=== PATIENT | male | born 1950 | race Caucasian/White ===

== ENCOUNTER 2021-02-11 05:43 | Outpatient (CLI) | payer OTHER ==
[~2021-02-11] VITALS: Ht 182.9 cm; Wt 79.5 kg
[2021-02-11] MEDS ORDERED: GARL1TAB2 PO (15:03)
[2021-02-11] MEDS ORDERED: CHOL20002 PO (15:03)
[2021-02-11] MEDS ORDERED: FINA1TAB16 PO (15:03)
[2021-02-11] MEDS ORDERED: FAMO20TA3 PO (15:03)
[2021-02-11] MEDS ORDERED: ASCO125T PO (15:03)
[2021-02-11] MEDS ORDERED: UBID100C17 PO (15:03)
[2021-02-11] MEDS ORDERED: QUET300T19 PO (15:03)
[2021-02-11] MEDS ORDERED: CARB1TAB44 PO (15:03)
[2021-02-11] MEDS ORDERED: CALC600T91 PO (15:03)
[2021-02-11] MEDS ORDERED: BENZ0.5T42 PO (15:03)
[2021-02-11] MEDS ORDERED: MULT-158 PO (15:03)
[2021-02-11] MEDS ORDERED: KRIL1CAP29 PO (15:03)
== END 2021-02-11 15:27 | disposition home or self-care (01) ==
LOC: PREOP 05:43
PROVIDERS: ATTEND Radiology Radiation Oncology
DX: Z01.818 Encounter for other preprocedural examination (principal)

== ENCOUNTER 2021-02-25 10:32 | Day surgery (SDC) | payer OTHER ==
[~2021-02-25] VITALS: Ht 182 cm; Wt 79.5 kg
[2021-02-25] VITALS (9 sets, daily range): BP systolic 98–141; BP diastolic 59–89
[~2021-02-25 10:32] MED LIST: ASCO125T PO; BENZ0.5T42 PO; CALC600T91 PO; CARB1TAB44 PO; CHOL20002 PO; FAMO20TA3 PO; FINA1TAB16 PO; GARL1TAB2 PO; KRIL1CAP29 PO; MULT-158 PO; QUET300T19 PO; UBID100C17 PO
[2021-02-25] MEDS ORDERED: LACTATED RINGERS 1,000 ML IV PRN (11:00)
--- NOTE | 2021-02-25 11:08 | Progress Note-Pre Operative ---
Pre-Operative Progress Note H&P Reviewed The H&P was reviewed, patient examined and no changes noted. Date Seen by Provider: Feb 25, 2021 Time Seen by Provider: 11:07 Date H&P Reviewed: Feb 25, 2021 Time H&P Reviewed: 11:07 Pre-Operative Diagnosis: Prostate cancer cT1c, PSA 5.89 (on Avodart), [place] 7 (4+3) ZACKARY MAYBERRY MD Feb 25, 2021 11:08
[2021-02-25] MEDS ORDERED: CIPR-226 PO (11:11)
[2021-02-25] MEDS ORDERED: ACET1TAB43 PO (11:11)
--- NOTE | 2021-02-25 11:13 | Discharge Inst-Simple/Standard ---
Discharge Inst-Standard Reconcile Patient Problems Problems Reviewed?: Yes Discharge Medications New, Converted or Re-Newed RX: RX Given to Pt/Family Patient Instructions/Follow Up Plan of Care/Instructions/FU: 1)one month post implant scan at [facility] cancer center 03/24/21 at 9:30 a.m. 2)one month follow up with Dr. Devine 03/30/21 at 2:00 p.m. Activity as Tolerated: Yes Discharge Diet: No Restrictions Other Inst to Patient Please instruct patient on wilder catheter care and wilder removal for Tuesday03/02/21 in the morning. ZACKARY MAYBERRY MD Feb 25, 2021 11:13
[2021-02-25] MEDS ORDERED: BACITRACIN OINTMENT 28 GM TUBE ONE (12:22)
[2021-02-25] MEDS ORDERED: fentaNYL INJ 100 MCG/2 ML AMP ONE ×2 (12:27→13:53)
[2021-02-25] MEDS ORDERED: fentaNYL INJ 250 MCG/5 ML AMP ONE (12:27)
[2021-02-25] MEDS ORDERED: MIDAZOLAM 2 MG/2 ML (VERSED) VIAL ONE (12:27)
--- NOTE | 2021-02-25 13:48 | Anesthesia-General Post-Op ---
General Patient Condition Mental Status/LOC: Same as Preop Cardiovascular: Satisfactory Nausea/Vomiting: Absent Respiratory: Satisfactory Pain: Controlled Complications: Absent Post Op Complications Complications None Follow Up Care/Instructions Patient Instructions None needed. Anesthesia/Patient Condition Patient Condition Patient is doing well, no complaints, stable vital signs, no apparent adverse anesthesia problems. No complications reported per nursing. TABATHA FORBES CRNA Feb 25, 2021 13:48
[2021-02-25] MEDS ORDERED: ONDANSETRON 4 MG/2 ML (SDV) Z0FRAN IVP PRN (14:00)
[2021-02-25] MEDS ORDERED: MEPERIDINE (DEMEROL) INJ 50 MG/ML IVP ONE (14:00)
[2021-02-25] MEDS ORDERED: morphine INJ 10 MG/ML 1ML (SYR OR VIAL) IVP ONE (14:00)
--- NOTE | 2021-02-25 14:04 | Progress Note-Post Operative ---
Post-Operative Progess Note Surgeon (s)/Review Analyst (s) Surgeon ZACKARY MAYBERRY MD Review Analyst: Lizz WHITLEY MD Pre-Operative Diagnosis Prostate cancer cT1c, PSA 5.89 (on Avodart), [place] 7 (4+3) Post-Operative Diagnosis Same as pre op Procedure & Operative Findings Date of Procedure 02/25/21 Procedure Performed/Findings (1) 100% Cesium 131 permanent prostate seed implant (2) Injection of biodegradable hydrogel prostate-rectal spacer utilizing the SpaceOAR system (3) Cystogram prostate volume 14 cc Anesthesia Type General Estimated Blood Loss Estimated blood loss (mL): Minimal Specimens/Packing Specimens Removed None Packing: N/A ZACKARY MAYBERRY MD Feb 25, 2021 14:04
--- NOTE | 2021-02-25 14:42 | Diagnostic Imaging Report ---
Indication: Fluoroscopy for brachytherapy. Fluoroscopy was provided for Dr. Garcia for prostate brachytherapy. 13 seconds of fluoroscopic time was utilized. A single image was obtained demonstrating multiple radiation seed implants within the prostate gland. IMPRESSION: Fluoroscopy for brachytherapy. Dictated by: Dictated on workstation # [id number]
--- OUTSIDE RECORDS SUMMARY | 2021-02-26 00:23 | XMS REPORT | Encounter Summary ---
[facility] Address Unknown Phone Unavailable Care Team Providers Care Dry Cleaner Hand Name Role Phone JER GARCIA PCP Unavailable Insurance Providers: All historical and current Section Date Range: From patient's date of to the date document was create d. This section includes the names of all active insurance providers for the danis friend Insurance Provider Type of Coverage Plan Name Start of Policy Co verage End of Policy Coverage Group Number Member ID Insurance Provider's Telephone N umber Policy Baeza's Name Patient's Relationship to Policy Baeza AETNA [facility] (WNR) MEDICARE ADVANTAGE [facility](R) Jul 18, 2019 00 [id number] MAYI FARRELL PATIENT [facility] (WNR) MEDICARE ADVANTAGE [facility] (WNR) Jul 18, 2012 [id number] MAYI FARRELL PATIENT [facility] (WNR) MEDICARE ADVANTAGE [facility] (WNR) Jul 18, 2012 [id number] [facility] (WNR) MEDICARE ADVANTAGE [facility] (WNR) Jul 18, 2012 [id number] MAYI FARRELL PATIENT MEDICARE (WNR) MEDICARE (M) PART B Jul 18, 2009 PART B [id number] MAYI FARRELL PATIENT MEDICARE (WNR) MEDICARE (M) PART B Jul 18, 2009 PART B [id number] [phone] FARRLEL,GENE PATIENT MEDICARE (WNR) MEDICARE (M) PART A Oct 16, 2008 PART A [id number] MAYI FARRELL PATIENT MEDICARE (WNR) MEDICARE (M) PART A Oct 16, 2008 PART A [id number] [phone] MAYI FARRELL PATIENT MEDICARE PART D (WNR) MEDICARE (M) PART D Jul 18, 2015 PART D [id number] JMGENE PATIENT MEDICARE PART D (WNR) MEDICARE (M) PART D Jul 18, 2015 PART D [id number] JMGENE PATIENT MEDICARE PART D (WNR) MEDICARE (M) PART D Jul 18, 2012 PART D [id number] MAYI FARRELL PATIENT MEDICARE PART D (WNR) MEDICARE (M) PART D Jul 18, 2012 PART D [id number] MAYI FARRELL PATIENT Selected Encounter This section includes the information on record at [place] for the Encounter. Date/Time Encounter Type Encounter Description Reason Provider Source Jun 16, 2020 10:30 AM Outpatient Encounter TELEPHONE VIKA MONROY Encounter Template Text not used by [place] Assessments - Encounter Diagnoses No Data Provided for This Section Plan of Treatment: Future Appointments (+ 6 months) and Future Tests (+/- 45 day s) The Plan of Treatment section includes future care activities for the patient fr om all [place] treatment facilities. This section includes future appointments and fu ture orders which are active, pending or scheduled. Future Appointments This section includes appointments that were scheduled t o occur 6 months from the date of the Encounter, up to a maximum of 20 appointme nts. The data comes from all [place] treatment facilities. Appointment Date/Time Appointment Type Appointment Facili ty Name Aug 21, 2020 09:00 AM AMBULATORY - NONE [facility] Aug 21, 2020 04:00 PM AMBULATORY - MEDICINE [facility] Aug 28, 2020 09:00 AM AMBULATORY - MEDICINE [facility] Oct 01, 2020 12:00 PM AMBULATORY - MEDICINE [facility] Oct 02, 2020 02:00 PM AMBULATORY - PSYCHIATRY [facility] Oct 23, 2020 02:00 PM AMBULATORY - PSYCHIATRY [facility] Oct 30, 2020 08:00 AM AMBULATORY - NONE [facility] November 20, 2020 02:00 PM AMBULATORY - PSYCHIATRY [facility] November 27, 2020 02:25 PM AMBULATORY - NONE [facility] Surgical Procedures: All associated to the encounter No Data Provided for This Section Lab Results: +/- 30 days of the encounter No Data Provided for This Section Vital Signs: All taken on the encounter date This section contains inpatient and outpatient Vital Signs collected on the date of the Encounter. Date/Time Temperature Pulse Blood Pressure Respiratory Rate SP02 Pa in Height Weight Body Mass Index Source Jun 16, 2020 09:17 AM 0 [facility] Immunizations: All administered on the encounter date No Data Provided for This Section Social History: Smoking Status (Most current) and Tobacco Use (All prior to enco unter date) This section includes the most current, and the historical, smoking and tobacco- related health factors from the [place] facility where the Encounter took place. Current Smoking Status This section includes the most current smoking, or tobacco -related health factor, from the [place] facility where the Encounter took place. Date/Time Current Smoking Status Comment Facility Oct 14, 2018 01:47 PM MS-TOBACCO QUIT 15 YRS OR MORE [facility] Tobacco Use History This section includes a history of the smoking, or tobacco -related health factors, that were collected on or before the date of the Encoun ter. The data comes from the [place] facility where the Encounter took place. Date/Time Smoking Status/Tobacco Use Comment Facil ity Oct 14, 2018 01:47 PM MS-TOBACCO FORMER USER [facility] CLI [place] Oct 14, 2018 01:47 PM MS-TOBACCO QUIT 15 YRS OR MORE [facility] Advance Directives: All historical and current No Data Provided for This Section Radiology Reports: +/- 30 days of the encounter No Data Provided for This Section Pathology Reports: +/- 30 days of the encounter No Data Provided for This Section Encounter Notes: All associated encounter notes This section contains the clinical notes associated to the Encounter. Date/Time Encounter Note(s) Provider Source Jun 16, 2020 10:48 AM ADMINISTRATIVE NOTE: LOCAL TITLE: ADMINISTRATIVE NOTE STANDARD TITLE: ADMINISTRATIVE NOTE DATE OF NOTE: JUN 16, 2020@10:48 ENTRY DATE: JUN 16, 2020@10:48:53 AUTHOR: VIKA BETANCOURT EXP COSIGNER: URGENCY: STATUS: COMPLETED ADMINISTRATIVE NOTE Has ADDENDA PLease schedule for follow up with Dr Loera or other provider at the end of Aug or september. /mauri/ VIKA BETANCOURT PA-C PHYSICIAN TURF FARM WORKER, MENTAL HEALTH Signed: 06/16/2020 10:49 Receipt Acknowledged By: 06/16/2020 14:40 /mauri/ CATRINA TORIBIO [facility] 06/17/2020 08:06 /es/ THERESA LUJAN MENTAL HEALTH 06/16/2020 ADDENDUM STATUS: COMPLETED sched 09/15 @ 10 /mauri/ CATRINA THOMAS [facility] Signed: 06/16/2020 14:43 07/23/2020 ADDENDUM STATUS: COMPLETED called back states he does not want to change provider only wants to see tremayne requests call from tremayne when available /karey THOMAS [facility] Signed: 07/23/2020 12:43 Receipt Acknowledged By: * AWAITING SIGNATURE * CAMILLA SOLOMON 07/23/2020 13:55 /mauri/ VIKA CANO PA-C PHYSICIAN TURF FARM WORKER, MENTAL HEALTH 07/23/2020 ADDENDUM STATUS: COMPLETED Called . First he tells me that lorazepam has made his tremors go away. He is happy about this. I let him know that I wanted him to see the doctor because of our differene of opinion on whether he should be using quetiapine at night, he has parkinsonism. Let him know I wanted an opinion from someone with more experience since I believe this is a bad choice of medications for him and he was very resistant about trying anything else for sleep. He agrees to keep the appointment with Dr Pearl on 09/15/20 at 10AM. /mauri/ VIKA BETANCOURT PA-C PHYSICIAN [employer]UR[employer] FARM WORKER, MENTAL HEALTH Signed: 07/23/2020 13:54 Receipt Acknowledged By: * AWAITING SIGNATURE * MARIA LUISA LOERA KATHRYN D [place] [facility] Jun 16, 2020 09:08 AM MENTAL HEALTH NURSING NOTE: LOCAL TITLE: MENTAL HEALTH NURSE INTAKE STANDARD TITLE: MENTAL HEALTH NURSING NOTE DATE OF NOTE: JUN 16, 2020@09:08 ENTRY DATE: JUN 16, 2020@09:08:26 AUTHOR: CAMILLA SOLOMON COSIGNER: URGENCY: STATUS: COMPLETED SUBJECTIVE: Pre telephone appt call for MH Intake. [place] is alert, oriented and pleasant. Denies HI/SI. Rates his depression a 7 otherwise is doing good. The 's phone number and address: [phone] Richa Jimenez RYAN The 's present location:home The [place]'s emergency contact name and phone number: Saadia Farrell () [phone] [place] has verbally consented to telehealth; alternatives for obtaining care through in-person visit and right of refusal at any time have been explained. [place] agreed to services today. Coronavirus Disease 2019 (COVID-19) Screen The patient reports no COVID-19 diagnosis. The patient reports not waiting for the results of a COVID-19 lab test. The patient reports no fever. The patient reports no new or worsening cough or shortness of breath. The patient reports no cold or flu-like symptoms. The patient reports no new onset of diarrhea, nausea or vomiting. The patient reports no new onset of headache, loss of taste or loss of smell. The patient reports no exposure to someone with COVID-19 within the past 2 weeks. Result: Screen is negative. Educated the regarding good handwashing, social distancing and avoid going out unless absolutely necessary to avoid possibilty of exposure to the Virus. voiced understanding and is agreeable with the plan. BP: 128/75 (08/29/2019 11:33) Pain: 0 (05/19/2020 14:51) Height: 71 in [180.3 cm] (08/29/2019 11:33) Weight: 174.7 lb [79.4 kg] (08/29/2019 11:33) Pulse: 76 (08/29/2019 11:33) Respiration: 20 (08/29/2019 11:33) Temperature: 97.8 F [36.6 C] (08/29/2019 11:33) ALLERGIES:ERYTHROMYCIN, SIMVASTATIN, FINASTERIDE, GABAPENTIN, VENLAFAXINE DEPRESSION SCREEN: (x)Positive ()Negative rates a 7 on a scale of 0-10 If positive, ()New/Untreated Depression SUICIDAL: (x)No ()Yes If Yes, does patient have a plan? ()Yes ()No PAIN: [x]No []Yes []Chronic or []Acute; Present Pain Level: 0 (05/19/2020 14:51) Comfort Level Scale (0-10):0 TOBACCO: (x)No ()Yes-Counseled for cessation. Has the patient traveled outside the [place] within the past 30 days? No If yes, where has the patient traveled? Organ Donor (Nurse): Patient states he/she is not currently registered with a Regional Organ Recovery Agency. Patient declines to be an organ donor. Alcohol Use Screen (AUDIT-C): Alcohol Screen: SCREEN FOR ALCOHOL (AUDIT-C) An alcohol screening test (AUDIT-C) was negative (score=0). 1. How often did you have a drink containing alcohol in the past year? Never 2. How many drinks containing alcohol did you have on a typical day when you were drinking in the past year? Response not required due to responses to other questions. 3. How often did you have six or more drinks on one occasion in the past year? Response not required due to responses to other questions. Influenza Immunization: The patient has received the seasonal influenza vaccine for the current season at another location. Date: April 01, 2020 Location: [facility] Daily Aspirin (Nurse): Patient does not take daily aspirin. Pain Evaluation (Nurse): PAIN EVALUATION: Clinic Location: Mental Health Patient reports no pain present today. Pain Score: 0 /es/ CAMILLA SOLOMON RN PRIMARY CARE REGISTERED NURSE-RICHA Signed: 06/16/2020 09:21 CAMILLA SOLOMON [facility]
--- OUTSIDE RECORDS SUMMARY | 2021-02-26 00:23 | XMS REPORT | Encounter Summary ---
Author Author Department [facility] MAYI ruth Organization Department of [facility] Address Unknown Phone Unavailable Care Team Providers Care Area Sales Manager Name Role Phone JER GARCIA PCP Unavailable [...] Name Patient's Relationship to Policy Baeza AETNA [facility] (WNR) MEDICARE ADVANTAGE [facility](WNR) Jul 18, 2019 00 0003[place] [id number] MAYI ONEAL PATIENT [facility] (WNR) MEDICARE ADVANTAGE [facility] (WNR) Jul 18, 2012 [id number] MAYI ONEAL PATIENT [facility] (WNR) MEDICARE ADVANTAGE [facility] (WNR) Jul 18, 2012 [id number] MAYI ONEAL PATIENT [facility] (WNR) MEDICARE ADVANTAGE [facility] (WNR) Jul 18, 2012 [id number] MAYI ONEAL PATIENT MEDICARE (WNR) MEDICARE (M) PART B Jul 18, 2009 PART B [id number] MAYI ONEAL PATIENT MEDICARE (WNR) MEDICARE (M) PART B Jul 18, 2009 PART B [id number] [phone] MAYI ONEAL PATIENT MEDICARE (WNR) MEDICARE (M) PART A Oct 16, 2008 PART A [id number] MAYI ONEAL PATIENT MEDICARE (WNR) MEDICARE (M) PART A Oct 16, 2008 PART A [id number] [phone] MAYI ONEAL PATIENT MEDICARE PART D (WNR) MEDICARE (M) PART D Jul 18, 2015 PART D [id number] JMGENE PATIENT MEDICARE PART D (WNR) MEDICARE (M) PART D Jul 18, 2015 PART D [id number] JMGENE PATIENT MEDICARE PART D (WNR) MEDICARE (M) PART D Jul 18, 2012 PART D [id number] MAYI ONEAL PATIENT MEDICARE PART D (WNR) MEDICARE (M) PART D Jul 18, 2012 PART D [id number] MAYI ONEAL PATIENT Selected Encounter This section includes the information on record at [place] for the Encounter. Date/Time Encounter Type Encounter Description Reason Provider Source Jul 03, 2020 09:03 AM Outpatient Encounter SLEEP MEDICINE [facility] Encounter Template Text not used by [place] Assessments - Encounter Diagnoses No Data Provided for This Section Plan of Treatment: Future Appointments (+ 6 months) and Future Tests (+/- 45 day s) The Plan of Treatment section includes future care activities for the patient fr om all [place] treatment facilities. This section includes future appointments and fu ture orders which are active, pending or scheduled. Future Appointments This section includes appointments that were scheduled t o occur 6 months from the date of the Encounter, up to a maximum of 20 appointme nts. The data comes from all [place] treatment facilities. Appointment Date/Time Appointment Type Appointment Facili ty Name Aug 21, 2020 09:00 AM AMBULATORY - NONE [facility] Aug 21, 2020 04:00 PM AMBULATORY - MEDICINE [facility] Aug 28, 2020 09:00 AM AMBULATORY - MEDICINE [facility] Oct 01, 2020 12:00 PM AMBULATORY - MEDICINE [facility] Oct 02, 2020 02:00 PM AMBULATORY - PSYCHIATRY [facility] Oct 23, 2020 02:00 PM AMBULATORY - PSYCHIATRY [facility] Oct 30, 2020 08:00 AM AMBULATORY - NONE [facility] November 20, 2020 02:00 PM [facility] November 27, 2020 02:25 PM AMBULATORY - NONE [facility] Dec 29, 2020 10:00 AM AMBULATORY - NONE [facility] Jan 01, 2021 02:30 PM AMBULATORY - PSYCHIATRY [facility] Surgical Procedures: All associated to the encounter No Data Provided for This Section Lab Results: +/- 30 days of the encounter No Data Provided for This Section Vital Signs: All taken on the encounter date No Data Provided for This Section Immunizations: All administered on the encounter date No Data Provided for This Section Social History: Smoking Status (Most current) and Tobacco Use (All prior to enco unter date) This section includes the most current, and the historical, smoking and tobacco- related health factors from the [place] facility where the Encounter took place. Current Smoking Status This section includes the most current smoking, or tobacco -related health factor, from the [place] facility where the Encounter took place. Date/Time Current Smoking Status Comment Facility Jun 18, 2013 01:14 PM V16 TOBACCO USE SCREEN [facility] Tobacco Use History This section includes a history of the smoking, or tobacco -related health factors, that were collected on or before the date of the Encoun ter. The data comes from the [place] facility where the Encounter took place. Date/Time Smoking Status/Tobacco Use Comment [facility] Jun 18, 2013 01:14 PM V16 TOBACCO USE SCREEN [facility] December 16, 2011 02:56 AM LIFETIME NON-TOBACCO USER DAYANNA MENON Advance Directives: All historical and current No Data Provided for This Section Radiology Reports: +/- 30 days of the encounter No Data Provided for This Section Pathology Reports: +/- 30 days of the encounter No Data Provided for This Section Encounter Notes: All associated encounter notes This section contains the clinical notes associated to the Encounter. Date/Time Encounter Note(s) Provider Source Jul 03, 2020 09:04 AM ADMINISTRATIVE NOTE: LOCAL TITLE: ADMINISTRATIVE NOTE STANDARD TITLE: ADMINISTRATIVE NOTE DATE OF NOTE: JUL 03, 2020@09:04 ENTRY DATE: JUL 03, 2020@09:04:10 AUTHOR: АЛЕКСАНДР LARRY COSIGNER: URGENCY: STATUS: COMPLETED PATIENT NAME: MAYI ONEAL SSN: [id number] FUTURE APPOINTMENTS: Sep@10:00 KIM CHAPARRO TELE PSYCH MD1-X PATIENT'S HOME PHONE: CALL TAKEN BY: Александр REASON FOR CALL: Please mail [employer]Med Airfit P10 nasal pillows, standard tubing and S9 filters to patient's home. Thanks! /mauri/ АЛЕКСАНДР LARRY ADVANCED HAND SIGN WRITER-[place] Signed: 07/03/2020 09:06 Receipt Acknowledged By: * AWAITING SIGNATURE * SHREYA BRAVO SHERI M GENE [facility]
--- OUTSIDE RECORDS SUMMARY | 2021-02-26 00:24 | XMS REPORT | Encounter Summary ---
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 Name Role Phone JER GARCIA PCP Unavailable [...] Name Patient's Relationship to Policy Baeza AETNA [facility] (WNR) MEDICARE ADVANTAGE [facility](WNR) Jul 18, 2019 00 0003-[place] [id number] MAYI ONEAL PATIENT [facility] (WNR) MEDICARE ADVANTAGE [facility] (WNR) Jul 18, 2012 [id number] MAYI ONEAL PATIENT [facility] (WNR) MEDICARE ADVANTAGE [facility] (WNR) Jul 18, 2012 [id number] MAYI ONEAL PATIENT [facility] (WNR) MEDICARE ADVANTAGE [facility] (WNR) Jul 18, 2012 [id number] MAYI ONEAL PATIENT MEDICARE (WNR) MEDICARE (M) PART B Jul 18, 2009 PART B [id number] MAYI ONEAL PATIENT MEDICARE (WNR) MEDICARE (M) PART B Jul 18, 2009 PART B [id number] [phone] MAYI ONEAL PATIENT MEDICARE (WNR) MEDICARE (M) PART A Oct 16, 2008 PART A [id number] MAYI ONEAL PATIENT MEDICARE (WNR) MEDICARE (M) PART A Oct 16, 2008 PART A [id number] [phone] MAYI ONEAL PATIENT MEDICARE PART D (WNR) MEDICARE (M) PART D Jul 18, 2015 PART D [id number] JMGENE PATIENT MEDICARE PART D (WNR) MEDICARE (M) PART D Jul 18, 2015 PART D [id number] JMGENE PATIENT MEDICARE PART D (WNR) MEDICARE (M) PART D Jul 18, 2012 PART D [id number] MAYI ONEAL PATIENT MEDICARE PART D (WNR) MEDICARE (M) PART D Jul 18, 2012 PART D [id number] MAYI ONEAL PATIENT Selected Encounter This section includes the information on record at [place] for the Encounter. Date/Time Encounter Type Encounter Description Reason Provider Source May 19, 2020 02:30 PM OFFICE/OUTPATIENT VISIT EST PRIMARY CARE/M EDICINE ICD-10-CM Z23 Encounter for immunization with Provider Comments: Encounter for Immunization SHASHI MARTINEZ Encounter Template Text not used by [place] Assessments - Encounter Diagnoses This section includes the primary and secondary diag noses documented for the Encounter. Date/Time Primary/Secondary Diagnosis Diagnosis Name Provider Source May 19, 2020 02:52 PM PRIMARY Encounter for immunization SHASHI MARTINEZ [place] [facility] Plan of Treatment: Future Appointments (+ 6 months) and Future Tests (+/- 45 day s) The Plan of Treatment section includes future care activities for the patient fr om all [place] treatment facilities. This section includes future appointments and fu ture orders which are active, pending or scheduled. Future Appointments This section includes appointments that were scheduled t o occur 6 months from the date of the Encounter, up to a maximum of 20 appointme nts. The data comes from all [place] treatment facilities. Appointment Date/Time Appointment Type Appointment Facili ty Name Jun 16, 2020 10:30 AM AMBULATORY - [facility]AT[facility] [place] [facility] Aug 21, 2020 09:00 AM AMBULATORY - NONE [facility] Aug 21, 2020 04:00 PM AMBULATORY - MEDICINE [facility] Aug 28, 2020 09:00 AM AMBULATORY - MEDICINE [facility] Oct 01, 2020 12:00 PM AMBULATORY - MEDICINE [facility] Oct 02, 2020 02:00 PM AMBULATORY - PSYCHIATRY [facility] Oct 23, 2020 02:00 PM AMBULATORY - PSYCHIATRY [facility] Oct 30, 2020 08:00 AM AMBULATORY - NONE [facility] Surgical Procedures: All associated to the encounter [...] in Height Weight Body Mass Index Source May 19, 2020 02:51 PM 0 [facility] Immunizations: All administered on the encounter date This section contains immunizations associated to the Encounter. Immunization Series Date Issued Reaction Comments ZOSTER RECOMBINANT 2 May 19, 2020 Social History: Smoking Status (Most current) and Tobacco Use (All prior to enco unter date) This section includes the most current, and the historical, smoking and tobacco- related health factors from the [place] facility where the Encounter took place. Current Smoking Status This section includes the most current smoking, or tobacco -related health factor, from the [place] facility where the Encounter took place. Date/Time Current Smoking Status Comment Facility Oct 14, 2018 01:47 PM [place]-TOBACCO QUIT 15 YRS OR MORE [facility] Tobacco Use History This section includes a history of the smoking, or tobacco -related health factors, that were collected on or before the date of the Encoun ter. The data comes from the [place] facility where the Encounter took place. Date/Time Smoking Status/Tobacco Use Comment Facil ity Oct 14, 2018 01:47 PM [place]-TOBACCO FORMER USER [facility] CLI EDUARDO Oct 14, 2018 01:47 PM [place]-TOBACCO QUIT 15 YRS OR MORE [facility] Advance Directives: All historical and current No Data Provided for This Section Radiology Reports: +/- 30 days of the encounter No Data Provided for This Section Pathology Reports: +/- 30 days of the encounter No Data Provided for This Section Encounter Notes: All associated encounter notes This section contains the clinical notes associated to the Encounter. Date/Time Encounter Note(s) Provider Source May 19, 2020 02:46 PM IMMUNIZATION NOTE: LOCAL TITLE: IMMUNIZATION NOTE STANDARD TITLE: IMMUNIZATION NOTE DATE OF NOTE: MAY 19, 2020@14:46 ENTRY DATE: MAY 19, 2020@14:46:57 AUTHOR: SHASHI MARTINEZ COSIGNER: URGENCY: STATUS: COMPLETED Herpes Zoster (Shingles) Vaccine: The patient received recombinant zoster vaccine (RZV) 0.5 ml IM in Left deltoid. Lead Project Manager: [employer] Lot#s and Expiration Date: [email or web address] 12/01/21 [email or web address] 12/01/21 Administered by protocol/policy Complications: None Daily Aspirin (Nurse): Patient does not take daily aspirin. Pain Evaluation (Nurse): PAIN EVALUATION: Clinic Location: Primary Care Patient reports no pain present today. Pain Score: 0 /mauri/ SHASHI MARTINEZ, RN NURSING SERVICE Signed: 05/19/2020 14:52 SHASHI MARTINEZ [facility]
--- OUTSIDE RECORDS SUMMARY | 2021-02-26 00:24 | XMS REPORT ---
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 Name Role Phone JER GARCIA PCP Unavailable [...] Name Patient's Relationship to Policy Baeza AETNA [facility] (WNR) MEDICARE ADVANTAGE [facility](WNR) Jul 18, 2019 00 0003-[place] [id number] MAYI ONEAL PATIENT [facility] (WNR) MEDICARE ADVANTAGE [facility] (WNR) Jul 18, 2012 [id number] MAYI ONEAL PATIENT [facility] (WNR) MEDICARE ADVANTAGE [facility] (WNR) Jul 18, 2012 [id number] MAYI ONEAL PATIENT [facility] (WNR) MEDICARE ADVANTAGE [facility] (WNR) Jul 18, 2012 [id number] MAYI ONEAL PATIENT MEDICARE (WNR) MEDICARE (M) PART B Jul 18, 2009 PART B [id number] MAYI ONEAL PATIENT MEDICARE (WNR) MEDICARE (M) PART B Jul 18, 2009 PART B [id number] [phone] MAYI ONEAL PATIENT MEDICARE (WNR) MEDICARE (M) PART A Oct 16, 2008 PART A [id number] MAYI ONEAL PATIENT MEDICARE (WNR) MEDICARE (M) PART A Oct 16, 2008 PART A [id number] [phone] JMGENE PATIENT MEDICARE PART D (WNR) MEDICARE (M) PART D Jul 18, 2015 PART D [id number] JMGENE PATIENT MEDICARE PART D (WNR) MEDICARE (M) PART D Jul 18, 2015 PART D [id number] JMGENE PATIENT MEDICARE PART D (WNR) MEDICARE (M) PART D Jul 18, 2012 PART D [id number] MAYI ONEAL PATIENT MEDICARE PART D (WNR) MEDICARE (M) PART D Jul 18, 2012 PART D [id number] MAYI ONEAL PATIENT Selected Encounter This section includes the information on record at [place] for the Encounter. Date/Time Encounter Type Encounter Description Reason Provider Source May 14, 2020 02:49 PM Outpatient Encounter ADMIN PAT ACTIVTIES ([facility]) IHE Encounter Template Text not used by [place] Assessments - Encounter Diagnoses No Data Provided for This Section Plan of Treatment: Future Appointments (+ 6 months) and Future Tests (+/- 45 day s) The Plan of Treatment section includes future care activities for the patient fr om all [place] treatment facilities. This section includes future appointments and fu ture orders which are active, pending or scheduled. Future Appointments This section includes appointments that were scheduled t o occur 6 months from the date of the Encounter, up to a maximum of 20 appointme nts. The data comes from all [place] treatment facilities. Appointment Date/Time Appointment Type Appointment Facili ty Name May 19, 2020 02:30 PM AMBULATORY - MEDICINE [facility] Jun 16, 2020 10:30 AM AMBULATORY - PSYCHIATRY [facility] Aug 21, 2020 09:00 AM AMBULATORY - NONE [facility] Aug 21, 2020 04:00 PM AMBULATORY - MEDICINE [facility] Aug 28, 2020 09:00 AM AMBULATORY - MEDICINE [facility] Oct 01, 2020 12:00 PM AMBULATORY - MEDICINE [facility] Oct 02, 2020 02:00 PM AMBULATORY - PSYCHIATRY [facility] Oct 23, 2020 02:00 PM AMBULATORY - PSYCHIATRY [facility] Oct 30, 2020 08:00 AM AMBULATORY - NONE [facility] Surgical Procedures: All associated to the encounter [...] and tobacco- related health factors from the [place] facility where the Encounter took place. Current Smoking Status This section includes the most current smoking, or tobacco -related health factor, from the [place] facility where the Encounter took place. Date/Time Current Smoking Status Comment Facility Jun 18, 2013 01:14 PM V16 TOBACCO USE SCREEN [facility] Tobacco Use History This section includes a history of the smoking, or tobacco -related health factors, that were collected on or before the date of the Encoun ter. The data comes from the [place] facility where the Encounter took place. Date/Time Smoking Status/Tobacco Use Comment [facility] Jun 18, 2013 01:14 PM V16 TOBACCO [...] Encounter. Date/Time Encounter Note(s) Provider Source May 14, 2020 02:52 PM ADMINISTRATIVE NOTE: LOCAL TITLE: ADMINISTRATIVE NOTE STANDARD TITLE: ADMINISTRATIVE NOTE DATE OF NOTE: MAY 14, 2020@14:52 ENTRY DATE: MAY 14, 2020@14:53:06 AUTHOR: RAIN LEON EXP COSIGNER: URGENCY: STATUS: COMPLETED Clinical Contact/Call Center Coronavirus Disease 2019 (COVID-19) Screen, [email or web address] () POSITIVE symptom and requires further evaluation (x) Negative Screen () Screening could not be done due to not being present () [place] declined screening DIAGNOSIS AND TESTING STATUS: Has [place] been diagnosed with COVID-19: () Yes* Date: (*No Further Screening Required) (x) No (Continue Screening) Comment(s): Is [place] waiting for COVID-19 test results: () Yes (Continue Screening) (x) No (Continue Screening) Comment: SCREEN: Signs and Symptoms: a. Fever: () Yes (x) No Comment(s): b. New or worsening cough or shortness of breath: () Yes Check all that apply: () Cough () Shortness of breath (x) No Comment(s): c. Any cold or flu-like symptoms: () Yes Check all that apply: () Cold like symptoms () Flu-like symptoms (x) No Comment(s): d. New onset diarrhea, nausea or vomiting: () Yes Check all that apply: () Diarrhea () Nausea () Vomiting (x) No Comment(s): e. New onset headache, loss of taste or loss of smell () Yes Check all that apply: () Headache () Loss of taste () Loss of smell (x) No Comment(s): EXPOSURE: Exposure within the last two weeks to someone with COVID-19: () Yes (x) No Comment(s): SCREEN RESULT: Any symptom or exposure= positive screen /mauri/ RAIN LEON [facility] Signed: 05/14/2020 14:53 RAIN LEON [facility] May 14, 2020 02:49 PM ADMINISTRATIVE NOTE: LOCAL TITLE: SCHEDULING NOTE STANDARD TITLE: ADMINISTRATIVE NOTE DATE OF NOTE: MAY 14, 2020@14:49 ENTRY DATE: MAY 14, 2020@14:49:27 AUTHOR: RAIN LEON EXP COSIGNER: URGENCY: STATUS: COMPLETED SCHEDULING NOTE Has ADDENDA calling asking to be scheduled for second shingles shot sooner than June. Please call at . 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
--- OUTSIDE RECORDS SUMMARY | 2021-02-26 00:24 | XMS REPORT | Encounter Summary ---
Author Author Department [facility] MAYI ruth Organization Department of 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 Name Role Phone JER GARCIA PCP Unavailable [...] Name Patient's Relationship to Policy Baeza AETNA [facility] (WNR) MEDICARE ADVANTAGE [facility](WNR) Jul 18, 2019 00 0003-[place] [id number] MAYI ONEAL PATIENT [facility] M[facility] (WNR) MEDICARE ADVANTAGE [facility] (WNR) Jul 18, 2012 [id number] MAYI ONEAL PATIENT [facility] (WNR) MEDICARE ADVANTAGE [facility] (WNR) Jul 18, 2012 [id number] MAYI ONEAL PATIENT [facility] M[facility] (WNR) MEDICARE ADVANTAGE [facility] (WNR) Jul 18, 2012 [id number] MAYI ONEAL PATIENT MEDICARE (WNR) MEDICARE (M) PART B Jul 18, 2009 PART B [id number] MAYI ONEAL PATIENT MEDICARE (WNR) MEDICARE (M) PART B Jul 18, 2009 PART B [id number] [phone] MAYI ONEAL PATIENT MEDICARE (WNR) MEDICARE (M) PART A Oct 16, 2008 PART A [id number] MAYI ONEAL PATIENT MEDICARE (WNR) MEDICARE (M) PART A Oct 16, 2008 PART A [id number] [phone] MAYI ONEAL PATIENT MEDICARE PART D (WNR) MEDICARE (M) PART D Jul 18, 2015 PART D [id number] JMGENE PATIENT MEDICARE PART D (WNR) MEDICARE (M) PART D Jul 18, 2015 PART D [id number] MAYI ONEAL PATIENT MEDICARE PART D (WNR) MEDICARE (M) PART D Jul 18, 2012 PART D [id number] MAYI ONEAL PATIENT MEDICARE PART D (WNR) MEDICARE (M) PART D Jul 18, 2012 PART D [id number] MAYI ONEAL PATIENT Selected Encounter This section includes the information on record at [place] for the Encounter. Date/Time Encounter Type Encounter Description Reason Provider Source May 29, 2020 12:00 AM Outpatient Encounter COMMUNITY CARE CONSULT IHE Encounter Template Text not used by CT Assessments - Encounter Diagnoses No Data Provided for This Section Plan of Treatment: Future Appointments (+ 6 months) and Future Tests (+/- 45 day s) The Plan of Treatment section includes future care activities for the patient fr om all [place] treatment facilities. This section includes future appointments and fu ture orders which are active, pending or scheduled. Future Appointments This section includes appointments that were scheduled t o occur 6 months from the date of the Encounter, up to a maximum of 20 appointme nts. The data comes from all [place] treatment facilities. Appointment Date/Time Appointment Type Appointment Facili ty Name Jun 16, 2020 10:30 AM AMBULATORY - PS[facility]CHIATRY [facility] Aug 21, 2020 09:00 AM [facility]ONE [facility] Aug 21, 2020 04:00 PM AMBULATORY - MEDICINE [facility] Aug 28, 2020 09:00 AM AMBULATORY - MEDICINE [facility] Oct 01, 2020 12:00 PM AMBULATORY - MEDICINE [facility] Oct 02, 2020 02:00 PM AMBULATORY - PSYCHIATRY [facility] Oct 23, 2020 02:00 PM AMBULATORY - PS[facility]CHIATRY [facility] Oct 30, 2020 08:00 AM AMBULATORY - NONE [facility] November 20, 2020 02:00 PM AMBULATORY - PSYCHIATRY [facility] Surgical Procedures: All associated to the [...] and tobacco- related health factors from the [place] facility where the Encounter took place. Current Smoking Status This section includes the most current smoking, or tobacco -related health factor, from the [place] facility where the Encounter took place. Date/Time Current Smoking Status Comment Facility Jun 18, 2013 01:14 PM V16 TOBACCO USE SCREEN [facility] Tobacco Use History This section includes a history of the smoking, or tobacco -related health factors, that were collected on or before the date of the Encoun ter. The data comes from the [place] facility where the Encounter took place. Date/Time Smoking Status/Tobacco Use Comment [facility] Jun 18, 2013 01:14 PM V16 [...] Encounter. Date/Time Encounter Note(s) Provider Source May 29, 2020 12:00 AM NONVA CONSULT: LOCAL TITLE: COMMUNITY CARE-CONSULT RESULT NOTE STANDARD TITLE: NONVA CONSULT DATE OF NOTE: MAY 29, 2020 ENTRY DATE: JUN 06, 2020@08:31:02 AUTHOR: DELONTE CANO EXP COSIGNER: URGENCY: STATUS: COMPLETED COMMUNITY CARE-CONSULT RESULT NOTE Has ADDENDA VistA Imaging - Scanned Document [facility] 05.29.20 VISIT /es/ DELONTE CANO CIVIL PROCESS SERVER Signed: 06/06/2020 08:31 05/29/2020 ADDENDUM STATUS: COMPLETED VistA Imaging Scanned Document - Addendum. ADDITIONAL RECORDS ATTACHED RFS /mauri/ JENNY [place] Rfid Specialist Signed: 11/04/2020 07:27 [facility]
--- OUTSIDE RECORDS SUMMARY | 2021-02-26 00:25 | XMS REPORT | Encounter Summary ---
Author Author [facility] Organization [facility] of [facility] Address Unknown Phone Unavailable Care Team Providers Care Help Desk Intern Name Role Phone JER GARCIA PCP Unavailable [...] Name Patient's Relationship to Policy Baeza AETNA [facility] (WNR) MEDICARE ADVANTAGE [facility](WNR) Jul 18, 2019 00 0003-[place] [id number] MAYI ONEAL PATIENT COVENTRY MCR (WNR) MEDICARE ADVANTAGE [facility] (WNR) Jul 18, 2012 [id number] MAYI ONEAL PATIENT COVENTRY MCR (WNR) MEDICARE ADVANTAGE MCR (WNR) Jul 18, 2012 [id number] MAYI ONEAL PATIENT COVENTRY MCR (WNR) MEDICARE ADVANTAGE MCR (WNR) Jul 18, 2012 [id number] MAYI ONEAL PATIENT MEDICARE (WNR) MEDICARE (M) PART B Jul 18, 2009 PART B [id number] MAYI ONEAL PATIENT MEDICARE (WNR) MEDICARE (M) PART B Jul 18, 2009 PART B [id number] [phone] MAYI ONEAL PATIENT MEDICARE (WNR) MEDICARE (M) PART A Oct 16, 2008 PART A [id number] MAYI ONEAL PATIENT MEDICARE (WNR) MEDICARE (M) PART A Oct 16, 2008 PART A [id number] [phone] JMGENE PATIENT MEDICARE PART D (WNR) MEDICARE (M) PART D Jul 18, 2015 PART D [id number] JMGENE PATIENT MEDICARE PART D (WNR) MEDICARE (M) PART D Jul 18, 2015 PART D [id number] JMGENE PATIENT MEDICARE PART D (WNR) MEDICARE (M) PART D Jul 18, 2012 PART D [id number] MAYI ONEAL PATIENT MEDICARE PART D (WNR) MEDICARE (M) PART D Jul 18, 2012 PART D [id number] MAYI ONEAL PATIENT Selected Encounter This section includes the information on record at [place] for the Encounter. Date/Time Encounter Type Encounter Description Reason Provider Source Apr 11, 2020 10:00 AM Outpatient Encounter TELEPHONE MH ICD-1 0-CM F33.1 Major depressive disorder, recurrent, moderate with Provider Comments: Moderate recurrent major depression ([facility] [id number]) VIKA BETANCOURT Reny Encounter Template Text not used by [place] Assessments - Encounter Diagnoses This section includes the primary and secondary diag noses documented for the Encounter. Date/Time Primary/Secondary Diagnosis Diagnosis Name Provider Source Apr 11, 2020 10:00 AM PRIMARY Major depressive disorder, recurrent, moderate CATRINA THOMAS [facility] Apr 11, 2020 10:00 AM SECONDARY Anxiety disorder, unspecif ied CATRINA THOMAS [facility] Apr 11, 2020 10:00 AM SECONDARY Insomnia, unspecified CATRINA THOMAS [facility] Plan of Treatment: Future Appointments (+ 6 months) and Future Tests (+/- 45 day s) The Plan of Treatment section includes future care activities for the patient fr om all [place] treatment facilities. This section includes future appointments and fu ture orders which are active, pending or scheduled. Future Appointments This section includes appointments that were scheduled t o occur 6 months from the date of the Encounter, up to a maximum of 20 appointme nts. The data comes from all [place] treatment facilities. Appointment Date/Time Appointment Type Appointment Facili ty Name May 19, 2020 02:30 PM AMBULATORY MEDICINE [facility] Jun 16, 2020 10:30 AM AMBULATORY - PSYCHIATRY [facility] Aug 21, 2020 09:00 AM AMBULATORY - NONE [facility] Aug 21, 2020 04:00 PM AMBULATORY MEDICINE [facility] Aug 28, 2020 09:00 AM AMBULATORY MEDICINE [facility] Oct 01, 2020 12:00 PM AMBULATORY MEDICINE [facility] Oct 02, 2020 02:00 PM AMBULATORY PSYCHIATRY [facility] Surgical Procedures: All associated to the [...] and tobacco- related health factors from the [place] facility where the Encounter took place. Current Smoking Status This section includes the most current smoking, or tobacco -related health factor, from the [place] facility where the Encounter took place. Date/Time Current Smoking Status Comment Facility Jun 18, 2013 01:14 PM V16 TOBACCO USE SCREEN [facility] Tobacco Use History This section includes a history of the smoking, or tobacco -related health factors, that were collected on or before the date of the Encoun ter. The data comes from the [place] facility where the Encounter took place. Date/Time Smoking Status/Tobacco Use Comment [facility] it Jun 18, 2013 01:14 PM V16 TOBACCO [...] the Encounter. Date/Time Encounter Note(s) Provider Source Apr 11, 2020 04:07 PM MEDICATION MGT NOTE: LOCAL TITLE: MEDICATION RECONCILIATION (PROVIDER) STANDARD TITLE: MEDICATION MGT NOTE DATE OF NOTE: APR 11, 2020@16:07 ENTRY DATE: APR 11, 2020@16:07:47 AUTHOR: VIKA BETANCOURT COSIGNER: URGENCY: STATUS: COMPLETED Medication Reconciliation COMPLETED (Outpatient): The following medication additions, deletions, dosage changes, OR duplications were identified and discussed with patient/caregiver. Specify: see [facility] note Copy of Medication Reconciliation note and Patient Medication Information Cover Sheet provided to and reviewed with patient/caregiver. ADVERSE REACTIONS/ALLERGY: ERYTHROMYCIN, SIMVASTATIN, FINASTERIDE, GABAPENTIN, VENLAFAXINE Active Outpatient Medications (excluding Supplies): Active Outpatient Medications Status 1) ARIPIPRAZOLE 5MG TAB TAKE TWO TABLETS BY MOUTH EVERY ACTIVE (S) MORNING FOR 7 DAYS, THEN TAKE ONE TABLET EVERY MORNING FOR 10 DAYS, THEN TAKE ONE-HALF TABLET EVERY MORNING 2) ATORVASTATIN 20MG TAB TAKE ONE-HALF TABLET BY MOUTH ACTIVE AT BEDTIME FOR CHOLESTEROL - DO NOT TAKE WITH GRAPEFRUIT JUICE 3) BENZTROPINE MESYLATE 2MG TAB TAKE ONE-HALF TABLET BY ACTIVE MOUTH TWICE A DAY 4) DUTASTERIDE 0.5MG CAP *HD* TAKE ONE CAPSULE BY MOUTH ACTIVE ONCE DAILY REPLACES FINASTERIDE FOR PROSTATE (CONSULT APPROVED) 5) ESCITALOPRAM 20MG TAB TAKE ONE-HALF TABLET BY MOUTH ACTIVE (S) EVERY MORNING FOR 7 DAYS, THEN TAKE ONE TABLET EVERY MORNING 6) PANTOPRAZOLE NA 20MG EC TAB TAKE ONE TABLET BY MOUTH ACTIVE EVERY MORNING FOR THE STOMACH 7) QUETIAPINE 300MG TAB TAKE ONE TABLET BY MOUTH EVERY ACTIVE (S) MORNING FOR MOOD Active Non-VA Medications Status 1) Non-VA ACETAMINOPHEN 325MG TAB 650MG MOUTH THREE ACTIVE TIMES A DAY NEEDED 2) Non-VA GARLIC (OTC) 2 CAPSULES MOUTH ONCE DAILY ACTIVE 3) Non-VA MULTIVITAMIN CAP/TAB 1 CAP/TAB MOUTH ACTIVE 4) Non-VA NON-VA DRUG ASSESSMENT DONE CAP/TAB MOUTH ACTIVE 5) Non-VA OMEGA-3 ACID CAP,ORAL MOUTH ACTIVE 6) Non-VA UNKNOWN HERBAL/DRUG(PutNameIn Comments CAP/TAB ACTIVE QUNOL MOUTH ONCE DAILY 13 Total Medications No Active Remote Medications for this patient /es/ VIKA BETANCOURT PA-C PHYSICIAN CONSTRUCTION MANAGEMENT ASSISTANT, MENTAL HEALTH Signed: 04/11/2020 16:08 VIKA BETANCOURT [facility] Apr 11, 2020 10:14 AM MENTAL HEALTH NOTE: LOCAL T[facility]: [facility] STANDARD TITLE: MENTAL HEALTH NOTE DATE OF NOTE: APR 11, 2020@10:14 ENTRY DATE: APR 11, 2020@10:14:17 AUTHOR: VIKA BETANCOURT EXP COSIGNER: URGENCY: STATUS: COMPLETED [facility] Has ADDENDA 04/11/20 10:00 Telephone appt due to COVID 's Goals: improvement in symptoms adherence to medication 90% of the time identified by full name and social security number. Chief complaint and History of present illness: Saw the for the fist time 2 months ago. Still depressed he says. Depression is 7-8/10. Trazodone: did not help at all, tried it for several weeks and it did not help. I still had to take quetiapine. He says he uses abilify -- it helps him not grind his teeth. Caffeine makes his tremors worse. Has been evaluated by neurology. No shuffling when he walks, says not parkisonism. SOCIAL HISTORY: : Children: Living situation: Social Contacts: SUBSTANCE USE: Alcohol: Tobacco: Illicit Drugs, or inappropiate drug use: Caffeine: no tea or soda or coffee VITALS - NONE FOUND - 1D BT - Blood Transfusions No data available CH - Chem & Hematology No data available CY - Cytopathology No data available EM - Electron Microscopy No data available JULIETTE - Microbiology No data available SP - Surgical Pathology No data available 0 RENAL Hi. date 08/29/19 10:14 dGLUCOSE 95 dCHLORIDE 107 dSODIUM #3 142 dPOTASSIUM #3 4.2 dCO2 #3 30 UREA NITROGEN (NAZARIO) 22 H CALCIUM (NAZARIO) 9.5 CREATININE (07-23-08) FAV 1.17 MEDICAL HISTORY/ACTIVE PROBLEMS Computerized Problem List is the source for the followin. Depression 2. Tremor 3. Benign prostatic hyperplasia 4. Colonoscopy normal 10/11/2014, repeat in ten years 5. Sleep apnea 6. Moderate recurrent major depression (SNOMED CT 35133083) 7. Insomnia (SNOMED CT 011041297) 8. Meir hematuria (SNOMED CT 154306692) 9. Hyperlipidemia (SNOMED CT 80035446) 10. Elevated PSA (SNOMED CT 356695937) 2010 Work up by Urology - BPH 11. Nausea with Vomiting (ICD-9-CM 787.0 1) 12. Chronic kidney disease stage 2 (SNOM ED CT 498633384) 13. Major Depressive Disorder, Recurrent , Severe, with Psychotic Features (DSM-I 14. Temporomandibular Joint Syndrome 15. H/O: surgery TMJ surgery approx 198 7 tonsil appy 1979 [facility] 1996 sinus 1988 02/2008 colonscope mild colitis 16. Allergic rhinitis (SNOMED CT 9336759 4) 17. Erectile dysfunction (SNOMED CT 3978 88914) 18. Acute Venous Embolism and Thrombosis of other specified Veins in 1999 Active Outpatient Medications (including Supplies): Active Outpatient Medications Status 1) ARIPIPRAZOLE 20MG TAB TAKE ONE-HALF TABLET BY MOUTH ACTIVE (S) ONCE DAILY 2) ATORVASTATIN 20MG TAB TAKE ONE-HALF TABLET BY MOUTH ACTIVE AT BEDTIME FOR CHOLESTEROL - DO NOT TAKE WITH GRAPEFRUIT JUICE 3) BENZTROPINE MESYLATE 2MG TAB TAKE O NE-HALF TABLET BY ACTIVE MOUTH TWICE A DAY 4) DUTASTERIDE 0.5MG CAP *HD* TAKE ONE CAPSULE BY MOUTH ACTIVE ONCE DAILY REPLACES FINASTERIDE FOR PROSTATE (CONSULT APPROVED) 5) ESCITALOPRAM 10MG TAB TAKE ONE-HALF TABLET BY MOUTH ACTIVE ONCE DAILY 6) PANTOPRAZOLE NA 20MG EC TAB TAKE ON E TABLET BY MOUTH ACTIVE EVERY MORNING FOR THE STOMACH 7) QUETIAPINE 400MG TAB TAKE ONE-HALF TABLET BY MOUTH AT ACTIVE BEDTIME FOR 4 DAYS, THEN TAKE ONE-FOURTH TABLET AT BEDTIME FOR 4 DAYS FOR MOOD TAKE 200MG 4 DAYS AND THEN 100MG FOR 4 DAYS 8) TRAZODONE 100MG TAB TAKE ONE-HALF T O ONE TABLET(S) BY ACTIVE MOUTH AT BEDTIME SLEEP Active Non-VA Medications Status 1) Non-VA ACETAMINOPHEN 325MG TAB 650M G MOUTH THREE ACTIVE TIMES A DAY NEEDED 2) Non-VA GARLIC (OTC) 2 CAPSULES MOUT H ONCE DAILY ACTIVE 3) Non-VA MULTIVITAMIN CAP/TAB 1 CAP/T AB MOUTH ACTIVE 4) Non-VA NON-VA DRUG ASSESSMENT DONE CAP/TAB MOUTH ACTIVE 5) Non-VA OMEGA-3 ACID CAP,ORAL MOUTH ACTIVE 6) Non-VA UNKNOWN HERBAL/DRUG(PutNameI n Comments CAP/TAB ACTIVE QUNOL MOUTH ONCE DAILY 14 Total Medications MENTAL STATUS EXAM APPEARANCE: NA PSYCHOMOTOR: NA SPEECH: Clear, coherent, spontaneous, ATTITUDE: Cooperative, MOOD: depressed AFFECT: congruent to content, full range. THOUGHTS AND PERCEPTIONS: Coherent, linear, logical, goal directed, ABNORMAL OR PSYCHOTIC THOUGHTS: none INSIGHT: intact JUDGMENT: intact IMPULSE CONTROL: intact ASSOCIATIONS: Appropriate to content, ORIENTATION: normal to Time, person, place, circumstances MEMORY: intact FUND OF KNOWLEDGE: normal HISTORIAN: Reliable, DIAGNOSES: Moderate recurrent major depression anxiety unspecfied LEONID: r/o insomnia unspecified PLAN: wean off abilify, he still has some and strongly advised him not safe to take with quetiapine and lexapro restart quetiapine for sleep increase escitalopram Dc trazodone as not effective Given all emergency numbers Educated: on medication side-effects and time frame for efficacy Aware he can call if develops any side effects around medications. Will call RN next week and let her know how he is doing with medication. [place] understands and agrees with this plan EDUCATION: when appropriate education is provided on sleep hygiene, alcohol consumption, smoking cessation, medication benefits, side effects, interactions, frequency of use and time-frame for action. /mauri/ VIKA BETANCOURT PA-C PHYSICIAN CONSTRUCTION MANAGEMENT ASSISTANT, MENTAL HEALTH Signed: 04/11/2020 16:10 06/16/2020 ADDENDUM STATUS: COMPLETED SOCIAL HISTORY: : since 1978 Children: his has two daughters, none together Living situation: lives with SUBSTANCE USE: Alcohol: no Tobacco: no Illicit Drugs, or inappropiate drug use: no Caffeine: stays to clear /mauri/ VIKA BETANCOURT PA-C PHYSICIAN CONSTRUCTION MANAGEMENT ASSISTANT, MENTAL HEALTH Signed: 06/16/2020 10:20 VIKA BETANCOURT [facility] Apr 11, 2020 09:15 AM MENTAL HEALTH NURSING NOTE: LOCAL TITLE: MENTAL HEALTH NURSE INTAKE STANDARD TITLE: MENTAL HEALTH NURSING NOTE DATE OF NOTE: APR 11, 2020@09:15 ENTRY DATE: APR 11, 2020@09:15:25 AUTHOR: IVONNE DOUGHERTY COSIGNER: URGENCY: STATUS: COMPLETED SUBJECTIVE: The 's phone number: The 's present location and address: [address] [place], [place] [address] [address] The [place]'s emergency contact name and phone number: see HIPAA has verbally consented to telehealth; alternatives for obtaining care through in-person visit and right of refusal at any time have been explained. [place] agreed to services today. Vet reports that since his last visit he has been "depressed, about the same as before." He has appt 04/21 to see neurologist about his tremors. This denies active suicidal/homicidal ideations. Denies AH/VH. The patient reports compliance with current medications which are effective. Pt given clinic number [phone] to call if there is any concerns or questions, and National Crisis Line number, which is [phone], press "1."to call if in a crisis or having thoughts of harm to self or others. ALLERGIES:ERYTHROMYCIN, SIMVASTATIN, FINASTERIDE, GABAPENTIN, VENLAFAXINE Has the patient traveled outside the [place] within the past 30 days? No If yes, where has the patient traveled? /mauri/ IVONNE DOUGHERTY BSN, RN NURSING SERVICE Signed: 04/11/2020 09:52 IVONNE DOUGHERTY [facility]
--- OUTSIDE RECORDS SUMMARY | 2021-02-26 00:25 | XMS REPORT | Encounter Summary ---
Author Author Department of [facility] MYAI ruth Organization Department of [facility] Address Unknown Phone Unavailable Care Team Providers Care Tail Trimmer Name Role Phone JER GARCIA PCP Unavailable [...] Name Patient's Relationship to Policy Baeza AETNA MCR (WNR) MEDICARE ADVANTAGE [facility](WNR) Jul 18, 2019 00 0003-[place] [id number] MAYI ONEAL PATIENT COVENTRY MCR (WNR) MEDICARE ADVANTAGE MCR (WNR) Jul 18, 2012 [id number] MAYI ONEAL PATIENT COVENTRY MCR (WNR) MEDICARE ADVANTAGE MCR (WNR) Jul 18, 2012 [id number] MAYI ONEAL PATIENT COVENTRY MCR (WNR) MEDICARE ADVANTAGE MCR (WNR) Jul 18, 2012 [id number] MAYI ONEAL PATIENT MEDICARE (WNR) MEDICARE (M) PART B Jul 18, 2009 PART B [id number] MAYI ONEAL PATIENT MEDICARE (WNR) MEDICARE (M) PART B Jul 18, 2009 PART B [id number] [phone] MAYI ONEAL PATIENT MEDICARE (WNR) MEDICARE (M) PART A Oct 16, 2008 PART A [id number] MAYI ONEAL PATIENT MEDICARE (WNR) MEDICARE (M) PART A Oct 16, 2008 PART A [id number] [phone] MAYI ONEAL PATIENT MEDICARE PART D (WNR) MEDICARE (M) PART D Jul 18, 2015 PART D [id number] JMGENE PATIENT MEDICARE PART D (WNR) MEDICARE (M) PART D Jul 18, 2015 PART D [id number] MAYI ONEAL PATIENT MEDICARE PART D (WNR) MEDICARE (M) PART D Jul 18, 2012 PART D [id number] MAYI ONEAL PATIENT MEDICARE PART D (WNR) MEDICARE (M) PART D Jul 18, 2012 PART D [id number] MAYI ONEAL PATIENT Selected Encounter This section includes the information on record at [place] for the Encounter. Date/Time Encounter Type Encounter Description Reason Provider Source Apr 01, 2020 12:00 AM Outpatient Encounter EVENT (HISTORICAL) IHE Encounter Template Text not used by [place] Assessments - Encounter Diagnoses No Data Provided for This Section Plan of Treatment: Future Appointments (+ 6 months) and Future Tests (+/- 45 day s) The Plan of Treatment section includes future care activities for the patient fr om all [place] treatment facilities. This section includes future appointments and fu ture orders which are active, pending or scheduled. Future Appointments This section includes appointments that were scheduled t o occur 6 months from the date of the Encounter, up to a maximum of 20 appointme nts. The data comes from all [place] treatment facilities. Appointment Date/Time Appointment Type Appointment Facili ty Name Apr 11, 2020 10:00 AM AMBULATORY - PSYCHIATRY [facility] May 19, 2020 02:30 PM AMBULATORY - MEDICINE [facility] Jun 16, 2020 10:30 AM AMBULATORY - PSYCHIATRY [facility] Aug 21, 2020 09:00 AM AMBULATORY - NONE [facility] Aug 21, 2020 04:00 PM AMBULATORY - MEDICINE [facility] Aug 28, 2020 09:00 AM AMBULATORY - MEDICINE [facility] Surgical Procedures: All associated to the encounter No Data Provided for This Section Lab Results: +/- 30 days of the encounter No Data Provided for This Section Vital Signs: All taken on the encounter date No Data Provided for This Section Immunizations: All administered on the encounter date This section contains immunizations associated to the Encounter. Immunization Series Date Issued Reaction Comments INFLUENZA, UNSPECIFIED FORMULATION Apr 01, 2020 Social History: Smoking Status (Most current) and Tobacco Use (All prior to enco unter date) This section includes the most current, and the historical, smoking and tobacco- related health factors from the [place] facility where the Encounter took place. Current Smoking Status This section includes the most current smoking, or tobacco -related health factor, from the [place] facility where the Encounter took place. Date/Time Current Smoking Status Comment Facility Jun 18, 2013 01:14 PM V16 TOBACCO USE SCREEN [facility] Tobacco Use History This section includes a history of the smoking, or tobacco -related health factors, that were collected on or before the date of the Encoun ter. The data comes from the [place] facility where the Encounter took place. Date/Time Smoking Status/Tobacco Use Comment [facility] Jun 18, 2013 01:14 PM [...] Section Encounter Notes: All associated encounter notes No Data Provided for This Section
--- OUTSIDE RECORDS SUMMARY | 2021-02-26 00:25 | XMS REPORT | Encounter Summary ---
Author [facility] Organization Department [facility] Address Unknown Phone Unavailable Care Team Providers Care Cop Examiner Name Role Phone JER GARCIA PCP Unavailable [...] Name Patient's Relationship to Policy Baeza AETNA [facility] (WNR) MEDICARE ADVANTAGE [facility](WNR) Jul 18, 2019 00 0003-[place] [id number] [facility] MEDICARE ADVANTAGE [facility] (WNR) Jul 18, 2012 [id number] MAYI ONEAL PATIENT COVENTRY MCR (WNR) MEDICARE ADVANTAGE [facility] (WNR) Jul 18, 2012 [id number] MAYI ONEAL PATIENT COVENTRY MCR (WNR) MEDICARE ADVANTAGE [facility] (WNR) Jul 18, 2012 [id number] MAYI ONEAL PATIENT MEDICARE (WNR) MEDICARE (M) PART B Jul 18, 2009 PART B [id number] MAYI ONEAL PATIENT MEDICARE (WNR) MEDICARE (M) PART B Jul 18, 2009 PART B [id number] [phone] MAYI ONEAL PATIENT MEDICARE (WNR) MEDICARE (M) PART A Oct 16, 2008 PART A [id number] MAYI ONEAL PATIENT MEDICARE (WNR) MEDICARE (M) PART A Oct 16, 2008 PART A [id number] [phone] MAYI ONEAL PATIENT MEDICARE PART D (WNR) MEDICARE (M) PART D Jul 18, 2015 PART D [id number] JMGENE PATIENT MEDICARE PART D (WNR) MEDICARE (M) PART D Jul 18, 2015 PART D [id number] MAYI ONEAL PATIENT MEDICARE PART D (WNR) MEDICARE (M) PART D Jul 18, 2012 PART D [id number] MAYI ONEAL PATIENT MEDICARE PART D (WNR) MEDICARE (M) PART D Jul 18, 2012 PART D [id number] MAYI ONEAL PATIENT Selected Encounter This section includes the information on record at [place] for the Encounter. Date/Time Encounter Type Encounter Description Reason Provider Source Apr 02, 2020 02:40 PM Outpatient Encounter PRIMARY CARE/MEDICINE IHE Encounter Template Text not used by [place] Assessments - Encounter Diagnoses No Data Provided for This Section Plan of Treatment: Future Appointments (+ 6 months) and Future Tests (+/- 45 day s) The Plan of Treatment section includes future care activities for the patient fr om all [place] treatment facilities. This section includes future appointments and fu ture orders which are active, pending or scheduled. Future Appointments This section includes appointments that were scheduled t o occur 6 months from the date of the Encounter, up to a maximum of 20 appointme nts. The data comes from all [place] treatment facilities. Appointment Date/Time Appointment Type Appointment Facili ty Name Apr 11, 2020 10:00 AM AMBULATORY - PSYCHIATRY [facility] May 19, 2020 02:30 PM AMBULATORY - MEDICINE [facility] Jun 16, 2020 10:30 AM AMBULATORY - PS[facility]CHIATRY [facility] Aug 21, 2020 09:00 AM AMBULATORY - NONE [facility] Aug 21, 2020 04:00 PM AMBULATORY - MEDICINE [facility] Aug 28, 2020 09:00 AM AMBULATORY - MEDICINE [facility] Surgical Procedures: All associated to the encounter [...] and tobacco- related health factors from the [place] facility where the Encounter took place. Current Smoking Status This section includes the most current smoking, or tobacco -related health factor, from the [place] facility where the Encounter took place. Date/Time Current Smoking Status Comment Facility Oct 14, 2018 01:47 PM [place]-TOBACCO QUIT 15 YRS OR MORE [facility] Tobacco Use History This section includes a history of the smoking, or tobacco -related health factors, that were collected on or before the date of the Encoun ter. The data comes from the [place] facility where the Encounter took place. Date/Time Smoking Status/Tobacco Use Comment Facil ity Oct 14, 2018 01:47 PM [place]-TOBACCO FORMER USER [facility] Oct 14, 2018 01:47 PM [place]-TOBACCO QUIT 15 YRS OR MORE [facility] Advance Directives: All historical and [...] Encounter Note(s) Provider Source Jun 16, 2020 09:59 AM ADMINISTRATIVE NOTE: LOCAL TITLE: SCHEDULING NOTE STANDARD TITLE: ADMINISTRATIVE NOTE DATE OF NOTE: JUN 16, 2020@09:59 ENTRY DATE: JUN 16, 2020@09:59:50 AUTHOR: SHELBY THOMAS EXP COSIGNER: URGENCY: STATUS: COMPLETED Per Order dated: May PPR TO CANCEL PROCEDURE CLINIC APT ON 06/24/20. PT SAYS HE HAS ALREADY HAD HIS #2 SHINGLE SHOT Author's phone extension: [phone] /es/ SHELBY THOMAS [facility] ASST-NARGISPERFECTO Signed: 06/16/2020 10:01 Receipt Acknowledged By: * AWAITING SIGNATURE * SUGEY GIL * AWAITING SIGNATURE * TRINITY RODRIGEZ,SHELBY Zamudio [facility]
--- OUTSIDE RECORDS SUMMARY | 2021-02-26 00:26 | XMS REPORT | Encounter Summary ---
Author Author Department of [facility] MAYI ruth Organization Department of [facility] Address Unknown Phone Unavailable Care Team Providers Care Disbursement Clerk Name Role Phone JER GARCIA PCP Unavailable [...] Name Patient's Relationship to Policy Baeza AETNA [facility] (WNR) MEDICARE ADVANTAGE [facility](WNR) Jul 18, 2019 00 [place] [id number] MAYI ONEAL PATIENT [facility] (WNR) MEDICARE ADVANTAGE [facility] (WNR) Jul 18, 2012 [id number] MAYI ONEAL PATIENT [facility] (WNR) MEDICARE ADVANTAGE [facility] (WNR) Jul 18, 2012 [id number] MAYI ONEAL PATIENT [facility] (WNR) MEDICARE ADVANTAGE [facility] (WNR) Jul 18, 2012 [id number] MAYI ONEAL PATIENT MEDICARE (WNR) MEDICARE (M) PART B Jul 18, 2009 PART B [id number] MAYI ONEAL PATIENT MEDICARE (WNR) MEDICARE (M) PART B Jul 18, 2009 PART B [id number] [phone] MAYI ONEAL PATIENT MEDICARE (WNR) MEDICARE (M) PART A Oct 16, 2008 PART A [id number] MAYI ONEAL PATIENT MEDICARE (WNR) MEDICARE (M) PART A Oct 16, 2008 PART A [id number] [phone] MAYI ONEAL PATIENT MEDICARE PART D (WNR) MEDICARE (M) PART D Jul 18, 2015 PART D [id number] JMGENE PATIENT MEDICARE PART D (WNR) MEDICARE (M) PART D Jul 18, 2015 PART D [id number] MAYI ONEAL PATIENT MEDICARE PART D (WNR) MEDICARE (M) PART D Jul 18, 2012 PART D [id number] MAYI ONEAL PATIENT MEDICARE PART D (WNR) MEDICARE (M) PART D Jul 18, 2012 PART D [id number] MAYI ONEAL PATIENT Selected Encounter This section includes the information on record at [place] for the Encounter. Date/Time Encounter Type Encounter Description Reason Provider Source Mar 21, 2020 02:36 PM Outpatient Encounter PRIMARY CARE/MEDICINE IHE Encounter Template Text not used by [place] Assessments - Encounter Diagnoses No Data Provided for This Section Plan of Treatment: Future Appointments (+ 6 months) and Future Tests (+/- 45 day s) The Plan of Treatment section includes future care activities for the patient fr om all [place] treatment facilities. This section includes future appointments and fu ture orders which are active, pending or scheduled. Future Appointments This section includes appointments that were scheduled t o occur 6 months from the date of the Encounter, up to a maximum of 20 appointme nts. The data comes from all [place] treatment facilities. Appointment Date/Time Appointment Type Appointment Facili ty Name Mar 25, 2020 11:09 AM AMBULATORY - PSYCHIATRY [facility] Apr 11, 2020 10:00 AM AMBULATORY - PSYCHIATRY [facility] May 19, 2020 02:30 PM AMBULATORY - MEDICINE [facility] Jun 16, 2020 10:30 AM AMBULATORY - PSYCHIATRY [facility] Aug 21, 2020 09:00 AM AMBULATORY - NONE [facility] Aug 21, 2020 04:00 PM AMBULATORY - MEDICINE [facility] Aug 28, 2020 09:00 AM AMBULATORY - MEDICINE [facility] Surgical Procedures: All associated to [...] and tobacco- related health factors from the [place] facility where the Encounter took place. Current Smoking Status This section includes the most current smoking, or tobacco -related health factor, from the [place] facility where the Encounter took place. Date/Time Current Smoking Status Comment Facility Jun 18, 2013 01:14 PM V16 TOBACCO USE SCREEN [facility] Tobacco Use History This section includes a history of the smoking, or tobacco -related health factors, that were collected on or before the date of the Encoun ter. The data comes from the [place] facility where the Encounter took place. Date/Time Smoking Status/Tobacco Use Comment [facility] it Jun 18, 2013 01:14 PM V16 [...] the Encounter. Date/Time Encounter Note(s) Provider Source Mar 21, 2020 02:36 PM ADMINISTRATIVE NOTE: LOCAL TITLE: SCHEDULING NOTE STANDARD TITLE: ADMINISTRATIVE NOTE DATE OF NOTE: MAR 21, 2020@14:36 ENTRY DATE: MAR 21, 2020@14:37:17 AUTHOR: DICK NUÑEZ EXP COSIGNER: URGENCY: STATUS: COMPLETED AMSA was able to make contact with regarding 04/02/20 appointment with procedure clinic for 2nd shingrix--this appt was r/s from 01/16/20 and r/s again to 06/24/20@0940 due to #COVID-19# /es/ DICK LUJAN Signed: 03/21/2020 14:[address] [facility]
--- OUTSIDE RECORDS SUMMARY | 2021-02-26 00:26 | XMS REPORT | Encounter Summary ---
[facility] of [facility] Address Unknown Phone Unavailable Care Team Providers Care Student Support Counselor Name Role Phone JER GARCIA PCP Unavailable [...] Policy Baeza's Name Patient's Relationship to Policy Baeaz AETNA [facility] (WNR) MEDICARE ADVANTAGE [facility](R) Jul 18, 2019 00 0003[place] [id number] MAYI ONEAL PATIENT [facility] (WNR) MEDICARE ADVANTAGE [facility] (WNR) Jul 18, 2012 [id number] MAYI ONEAL PATIENT [facility] (WNR) MEDICARE ADVANTAGE [facility] (WNR) Jul 18, 2012 [id number] [facility] (WNR) MEDICARE ADVANTAGE [facility] (WNR) Jul 18, 2012 [id number] MAYI ONEAL PATIENT MEDICARE (WNR) MEDICARE (M) PART B Jul 18, 2009 PART B [id number] MAYI ONEAL PATIENT MEDICARE (WNR) MEDICARE (M) PART B Jul 18, 2009 PART B [id number] [phone] ONEAL,GENE PATIENT MEDICARE (WNR) MEDICARE (M) PART A Oct 16, 2008 PART A [id number] MAYI ONEAL PATIENT MEDICARE (WNR) MEDICARE (M) PART A Oct 16, 2008 PART A [id number] [phone] MAYI ONEAL PATIENT MEDICARE PART D (WNR) MEDICARE (M) PART D Jul 18, 2015 PART D [id number] JMGENE PATIENT MEDICARE PART D (WNR) MEDICARE (M) PART D Jul 18, 2015 PART D [id number] JMGENE PATIENT MEDICARE PART D (WNR) MEDICARE (M) PART D Jul 18, 2012 PART D [id number] MAYI ONEAL PATIENT MEDICARE PART D (WNR) MEDICARE (M) PART D Jul 18, 2012 PART D [id number] MAYI ONEAL PATIENT Selected Encounter This section includes the information on record at [place] for the Encounter. Date/Time Encounter Type Encounter Description Reason Provider Source Mar 25, 2020 11:09 AM Outpatient Encounter TELEPHONE ICD-1 0-CM Z76.89 Persons encountering health services in oth circumstances with Provider Comments: Health Services in Other Specified Circumstances CAMILLA SOLOMON Reny Encounter Template Text not used by [place] Assessments - Encounter Diagnoses This section includes the primary and secondary diag noses documented for the Encounter. Date/Time Primary/Secondary Diagnosis Diagnosis Name Provider Source Mar 25, 2020 11:09 AM PRIMARY Persons encounteri ng health services in oth circumstances [facility] SOLOM[facility] Plan of Treatment: Future Appointments (+ [...] 10:00 AM AMBULATORY - PSYCHIATRY [facility] G[facility] May 19, 2020 02:30 PM AMBULATORY - MEDICINE [facility] Jun 16, 2020 10:30 AM AMBULATORY - PSYCHIATRY [facility] Aug 21, 2020 09:00 AM AMBULATORY - NONE [facility] Aug 21, 2020 04:00 PM AMBULATORY - MEDICINE [facility] Aug 28, 2020 09:00 AM AMBULATORY - MEDICINE [facility] Surgical Procedures: All associated to the [...] Comment Facility Oct 14, 2018 01:47 PM AR-TOBACCO QUIT 15 YRS OR MORE [facility] Tobacco Use History This section includes a history of the smoking, or tobacco -related health factors, that were collected on or before the date of the Encoun ter. The data comes from the [place] facility where the Encounter took place. Date/Time Smoking Status/Tobacco Use Comment [facility] Oct 14, 2018 01:47 PM AR-TOBACCO FORMER USER [facility] Oct 14, 2018 01:47 PM AR-TOBACCO QUIT 15 YRS OR MORE [facility] Advance Directives: All historical and current No Data Provided for This Section Radiology Reports: +/- 30 days of the encounter No Data Provided for This Section Pathology Reports: +/- 30 days of the encounter No Data Provided for This Section Encounter Notes: All associated encounter notes This section contains the clinical notes associated to the Encounter. Date/Time Encounter Note(s) Provider Source Mar 25, 2020 11:10 AM TELEPHONE ENCOUNTER NOTE: LOCAL TITLE: TELECARE STANDARD TITLE: TELEPHONE ENCOUNTER NOTE DATE OF NOTE: MAR 25, 2020@11:10 ENTRY DATE: MAR 25, 2020@11:10:39 AUTHOR: CAMILLA SOLOMON COSIGNER: URGENCY: STATUS: COMPLETED TELECARE Has ADDENDA PATIENT NAME: MAYI ONEAL SSN: [id number] FUTURE APPOINTMENTS: Mar@10:00 AMISHA PSY TELE PSYCH PA1-X Jun@09:40 JOGermania PROCEDURE/MONITOR PATIENT'S HOME PHONE: REASON FOR CALL: [place] request for a call from nurse or provider. FOLLOW UP: Call placed to the per his request. reports that "I weaned off my Quietiapine and have been taking the Trazadone for sleep, but it is not working and I have had to use the Quietiapine to get any sleep." I instructed the that I will alert to the message and await her direction. [place] voiced understanding and is agreeable with the plan. Coronavirus Disease 2019 (COVID-19) Screen The patient [...] past 2 weeks. Result: Screen is negative. (Patient has been instructed to go to [facility] Emergency Room or to seek care elsewhere. FINANCIAL DISCLAIMER was read to caller ( ) Yes ( ) Not Applicable) FINANCIAL DISCLAIMER: "This is not an authorization for VA Payment" and also "Have hospital contact the nearest [place] Facility for transfer upon stabilization". /mauri/ CAMILLA SOLOMON RN PRIMARY CARE REGISTERED NURSE-KERI Signed: 03/25/2020 11:14 Receipt Acknowledged By: 03/25/2020 16:14 /mauri/ VIKA CANO PA-C PHYSICIAN GAS WELL DRILLING MANAGER, MENTAL HEALTH 03/25/2020 ADDENDUM STATUS: COMPLETED Spoke to by phone. Advised he can stop trazodone and restart queitapine at 300mg. He has medication he says. Advised of Oct appt. Should reset with Dr Pearl. He stopped seeing him because "he prescribed a seizure med and I do not have seizures". Also says he does not have bipolar DO. Advised him these meds are used in various ways and he should discuss reason for med with doctor. Currently on Abilify. Not happy with the double antipsychotic but will discuss with him next time. Then reschedule with Dr Pearl. /mauri/ VIKA BETANCOURT PA-C PHYSICIAN GAS WELL DRILLING MANAGER, MENTAL HEALTH Signed: 03/25/2020 16:14 [facility]
--- OUTSIDE RECORDS SUMMARY | 2021-02-26 00:26 | XMS REPORT | Encounter Summary ---
Author Author Department [facility] MAYI ruth Organization Department of [facility] Address Unknown Phone Unavailable Care Team Providers Care Clinical Staff Educator Name Role Phone JER GARCIA PCP Unavailable [...] Name Patient's Relationship to Policy Baeza AETNA [facility] (WNR) MEDICARE ADVANTAGE [facility](WNR) Jul 18, 2019 00 0003[place] [id number] MAYI ONEAL PATIENT [facility] (WNR) MEDICARE ADVANTAGE [facility] (WNR) Jul 18, 2012 [id number] MAYI ONEAL PATIENT [facility] (WNR) MEDICARE ADVANTAGE [facility] (WNR) Jul 18, 2012 [id number] MAYI ONEAL PATIENT [facility] (WNR) MEDICARE ADVANTAGE [facility] (WNR) Jul 18, 2012 [id number] MAYI ONEAL PATIENT MEDICARE (WNR) MEDICARE (M) PART B Jul 18, 2009 PART B [id number] MAYI ONEAL PATIENT MEDICARE (WNR) MEDICARE (M) PART B Jul 18, 2009 PART B [id number] [phone] MAYI ONEAL PATIENT MEDICARE (WNR) MEDICARE (M) PART A Oct 16, 2008 PART A [id number] MAYI ONEAL PATIENT MEDICARE (WNR) MEDICARE (M) PART A Oct 16, 2008 PART A [id number] [phone] JMGENE PATIENT MEDICARE PART D (WNR) MEDICARE (M) PART D Jul 18, 2015 PART D [id number] JMGENE PATIENT MEDICARE PART D (WNR) MEDICARE (M) PART D Jul 18, 2015 PART D [id number] MAYI ONEAL PATIENT MEDICARE PART D (WNR) MEDICARE (M) PART D Jul 18, 2012 PART D [id number] MAYI ONEAL PATIENT MEDICARE PART D (WNR) MEDICARE (M) PART D Jul 18, 2012 PART D [id number] MAYI ONEAL PATIENT Selected Encounter This section includes the information on record at [place] for the Encounter. Date/Time Encounter Type Encounter Description Reason Provider Source Mar 25, 2020 10:49 AM Outpatient Encounter [facility]MIN [facility] ACTIVT[facility] IHE Encounter Template Text not used by [place] Assessments - Encounter Diagnoses No Data Provided for This Section Plan of Treatment: Future Appointments (+ 6 months) and Future Tests (+/- 45 day s) The Plan of Treatment section includes future care activities for the patient fr om all [place] treatment facilities. This section includes future appointments and fu ture orders which are active, pending or scheduled. Future Appointments This section includes appointments that were scheduled t o occur 6 months from the date of the Encounter, up to a maximum of 20 appointme nts. The data comes from all [place] treatment facilities. Appointment Date/Time Appointment Type Appointment Facili ty Name Apr 11, 2020 10:00 AM AMBULATORY - PSYCHIATRY [facility] G[facility] May 19, 2020 02:30 PM AMBULATORY - MEDICINE [facility] Jun 16, 2020 10:30 AM AMBULATORY - PS[facility]CHIATRY [facility] Aug 21, 2020 09:00 AM AMBULATORY - NONE [facility] Aug 21, 2020 04:00 PM AMBULATORY - MEDICINE [facility] Aug 28, 2020 09:00 AM AMBULATORY - MEDICINE [facility] Surgical Procedures: All associated to the [...] and tobacco- related health factors from the [place] facility where the Encounter took place. Current Smoking Status This section includes the most current smoking, or tobacco -related health factor, from the [place] facility where the Encounter took place. Date/Time Current Smoking Status Comment Facility Jun 18, 2013 01:14 PM V16 TOBACCO USE SCREEN [facility] Tobacco Use History This section includes a history of the smoking, or tobacco -related health factors, that were collected on or before the date of the Encoun ter. The data comes from the [place] facility where the Encounter took place. Date/Time Smoking Status/Tobacco Use Comment [facility] it Jun 18, 2013 01:14 PM V16 [...] Encounter Note(s) Provider Source Mar 25, 2020 10:49 AM ADMINISTRATIVE NOTE: LOCAL TITLE: ADMINISTRATIVE NOTE STANDARD TITLE: ADMINISTRATIVE NOTE DATE OF NOTE: MAR 25, 2020@10:49 ENTRY DATE: MAR 25, 2020@10:49:36 AUTHOR: CATRINA THOMAS EXP COSIGNER: URGENCY: STATUS: COMPLETED requests call from [facility] or nurse when available /mauri/ CATRINA THOMAS [employer] ASST-KERI Signed: 03/25/2020 10:49 Receipt Acknowledged By: 03/25/2020 11:08 /mauri/ CAMILLA CHE RN PRIMARY CARE REGISTERED NURSE-KERI 03/25/2020 16:15 /mauri/ VIKA CANO PA-C PHYSICIAN RIB TRIM SEPARATOR, MENTAL HEALTH 03/25/2020 11:33 /es/ CAITIE JORDAN, TILLER MAN REGISTERED NURSE-CATRINA BROTHERS [facility]
--- OUTSIDE RECORDS SUMMARY | 2021-02-26 00:29 | XMS REPORT | Encounter Summary ---
Author Author Department [facility] MAYI ruth Organization Department of [facility] Address Unknown Phone Unavailable Care Team Providers Care Insurance Sales Representative Name Role Phone JER GARCIA PCP Unavailable Insurance Providers: All historical and current Section Date Range: From patient's date of to the date document was create d. This section includes the names of all active insurance providers for the adnis friend Insurance Provider Type of Coverage Plan Name Start of Policy Co verage End of Policy Coverage Group Number Member ID Insurance Provider's Telephone N umber Policy Baeza's Name Patient's Relationship to Policy Baeza AETNA [facility] (WNR) MEDICARE ADVANTAGE [facility](WNR) Jul 18, 2019 00 [id number] MAYI ONEAL PATIENT [facility]ENTRY [facility] (WNR) MEDICARE ADVANTAGE [facility] (WNR) Jul 18, 2012 [id number] MAYI ONEAL PATIENT [facility]ENTRY M[facility] (WNR) MEDICARE ADVANTAGE [facility] (WNR) Jul 18, 2012 [id number] MAYI ONEAL PATIENT [facility]ENTRY [facility] (WNR) MEDICARE ADVANTAGE [facility] (WNR) Jul 18, 2012 [id number] MAYI ONEAL PATIENT MEDICARE (WNR) MEDICARE (M) PART B Jul 18, 2009 PART B [id number] MAYI ONAEL PATIENT MEDICARE (WNR) MEDICARE (M) PART B Jul 18, 2009 PART B [id number] [phone] MAYI ONEAL PATIENT MEDICARE (WNR) MEDICARE (M) PART A Oct 16, 2008 PART A [id number] MAYI ONEAL PATIENT MEDICARE (WNR) MEDICARE (M) PART A Oct 16, 2008 PART A [id number] [phone] MAYI ONEAL PATIENT MEDICARE PART D (WNR) MEDICARE (M) PART D Jul 18, 2015 PART D [id number] JMGENE PATIENT MEDICARE PART D (WNR) MEDICARE (M) PART D Jul 18, 2015 PART D [id number] MAYI ONEAL PATIENT MEDICARE PART D (WNR) MEDICARE (M) PART D Jul 18, 2012 PART D [id number] MAYI ONEAL PATIENT MEDICARE PART D (WNR) MEDICARE (M) PART D Jul 18, 2012 PART D [id number] MAYI ONEAL PATIENT Selected Encounter This section includes the information on record at OR for the Encounter. Date/Time Encounter Type Encounter Description Reason Provider Source Sep 09, 2020 02:33 PM Outpatient Encounter COMMUNITY CARE CONSULT IHE Encounter Template Text not used by OR Assessments - Encounter Diagnoses No Data Provided for This Section Plan of Treatment: Future Appointments (+ 6 months) and Future Tests (+/- 45 day s) The Plan of Treatment section includes future care activities for the patient fr om all OR treatment facilities. This section includes future appointments and fu ture orders which are active, pending or scheduled. Future Appointments This section includes appointments that were scheduled t o occur 6 months from the date of the Encounter, up to a maximum of 20 appointme nts. The data comes from all OR treatment facilities. Appointment Date/Time Appointment Type Appointment Facili ty Name Oct 01, 2020 12:00 PM AMBULATORY - MEDICINE [facility] Oct 02, 2020 02:00 PM AMBULATORY - PSYCHIATRY [facility] Oct 23, 2020 02:00 PM AMBULATORY - PSYCHIATRY [facility] Oct 30, 2020 08:00 AM AM[facility]ULATORY - NONE [facility] November 20, 2020 02:00 PM AMBULATORY - PSYCHIATRY [facility] November 27, 2020 02:25 PM AMBULATORY - NONE [facility] Dec 29, 2020 10:00 AM AMBULATORY - NONE [facility] Jan 01, 2021 02:30 PM AMBULATORY - PSYCHIATRY [facility] Surgical Procedures: All associated to the encounter No Data Provided for This Section Lab Results: +/- 30 days of the encounter This section includes the Chemistry and Hematology Lab R esults on record with OR for the patient. Radiology Reports and Pathology Report s are provided separately, in subsequent sections. Lab Results This section contains the Chemistry/Hematology Results rafaela t were resulted 30 days before or 30 days after the date of the Encounter. Date/Time Source Result Type Result - Unit Interpretation Reference Range Comment Aug 21, 2020 08:42 AM [facility] RENAL+LIVER PROFILE Specimen Type: SERUM No comment entered. Ordering Provider: JER GARCIA Report Released Date/Time: Aug 12, 2020 01:31 PM Reporting Lab: [address] [phone] Performing Lab: [address] [address] GLUCOSE (FV) 107 mg/dL 70-110 ALBUMIN (FV) 4.7 g/dL 3.4-5.0 AST (FV) 29 U/L 15-37 TOTAL BILIRUBIN (FV) 0.68 mg/dL 0.3-1.2 CHLORIDE (FV) 105 mmol/L 98-107 TOTAL PROTEIN (FV) 7.0 g/dL 6.1-7.9 SODIUM (FV) 140 mmol/L 136-145 POTASSIUM (FV) 4.2 mmol/L 3.5-5.1 CO2 (FV) 24 mmol/L 21-32 UREA NITROGEN (FV) 24 mg/dL H 6-20 CALCIUM (FV) 9.7 mg/dL 8.9-10.3 ALT (FV) 16 U/L 0-63 ALK. PHOS. (FV) 52 U/L 32-126 eGFR 57 CREATININE (FV) 1.25 mg/dL H .61-1.24 Aug 21, 2020 08:42 AM [facility] TSH (FV) Speci men Type: SERUM No comment entered. Ordering Provider: JER GARCIA Report Released Date/Time: Aug 12, 2020 01:31 PM Reporting Lab: [facility] [address] [facility] 7[address] Performing Lab: [facility] [address] [facility] 7[address] TSH (FV) 3.64 mcIU/mL 0.45-5.33 Aug 21, 2020 08:42 AM [facility] URINALYSIS Speci men Type: URINE No comment entered. Ordering Provider: JER GARCIA Report Released Date/Time: Aug 12, 2020 01:31 PM Reporting Lab: [address] [phone] Performing Lab: [address] [address] UA COLOR STRAW COLORLESS-YELLOW UA SPEC GRAV 1.013 1.005-1.035 UA PH 6.0 PH 5-9 UA NITRITE NEG QUAL. Neg.-Neg UA UROBILINOGEN <2.0 mg/dL -Normal: <2 m g-dL UA APPEARANCE - CLEAR UA GLUCOSE NORMAL QUAL NEG-TRACE UA PROTEIN - QUAL NEG UA BILI - QUAL NEG UA BLOOD - QUAL NEG-TRACE UA KETONES - QUAL NEG-TRACE UA LEUK EST NEG. Gabriel/uL NEG-74 Aug 21, 2020 08:42 AM [facility] CBC Speci men Type: BLOOD No comment entered. Ordering Provider: JER GARCIA Report Released Date/Time: Aug 12, 2020 01:31 PM Reporting Lab: [address] [phone] Performing Lab: [address] [address] MPV (FV) 7.7 fL 7.4-10.4 RDW (FV) 13.4 % 11.5-14.5 HCT (FV) 43.0 % 40-52 HGB (FV) 14.8 g/dL 13-18 PLT (FV) 125 K/cmm L 150-440 WBC (FV) 5.1 K/cmm 3.8-10.6 RBC (FV) 4.52 M/cmm 4.4-5.9 MCV (FV) 95.3 fL 80-100 MCH (FV) 32.8 pg 26-34 MCHC (FV) 34.4 g/dL 32-36 NE% (FV) 60.1 % SEE ABSOLUTE # NE# (FV) 3.1 K/cmm 2.4-7.6 LY% (FV) 28.2 % SEE ABSOLUTE # LY# (FV) 1.5 K/cmm 1.0-4.8 MO% (FV) 7.1 % SEE ABSOLUTE # MO# (FV) 0.4 K/cmm 0.1-1.0 EO% (FV) 3.9 % SEE ABSOLUTE # EO# (FV) 0.2 K/cmm 0.0-0.4 BA% (FV) 0.7 % SEE ABSOLUTE # BA# (FV) 0.0 K/cmm 0.0-0.2 Aug 21, 2020 08:42 AM [facility] GLYCO HGB A1C Speci men Type: BLOOD No comment entered. Ordering Provider: JER GARCIA Report Released Date/Time: Aug 12, 2020 01:31 PM Reporting Lab: [address] [place] [address] Performing Lab: [address] [place] [address] Glyco Hgb A1C 4.8 % 4.2-5.8 Aug 21, 2020 08:42 AM [facility] LIPID PROFILE Speci men Type: SERUM No comment entered. Ordering Provider: JER GARCIA Report Released Date/Time: Aug 12, 2020 01:31 PM Reporting Lab: [address] [place] [address] Performing Lab: [address] [place] [address] CHOLESTEROL, TOTAL (FV) 145 mg/dL 118-20 0 TRIGLYCERIDE (FV) 107 mg/dL <150 LDL CHOLESTEROL (CALCULATED) 78 HDL CHOLESTEROL (FV) 46 mg/dL >40 Aug 21, 2020 08:42 AM [facility] PSA (FV) Speci men Type: SERUM No comment entered. Ordering Provider: JER GARCIA Report Released Date/Time: Aug 12, 2020 01:31 PM Reporting Lab: [place] [facility] [address] [place] [address] Performing Lab: [place] [facility] [address] [place] [address] PSA (FV) 5.89 ng/mL H 0.0-4.0 Vital Signs: All taken on the encounter date No Data Provided for This Section Immunizations: All administered on the encounter date No Data Provided for This Section Social History: Smoking Status (Most current) and Tobacco Use (All prior to enco unter date) This section includes the most current, and the historical, smoking and tobacco- related health factors from the OR facility where the Encounter took place. Current Smoking Status This section includes the most current smoking, or tobacco -related health factor, from the OR facility where the Encounter took place. Date/Time Current Smoking Status Comment Facility Jun 18, 2013 01:14 PM V16 TOBACCO USE SCREEN [facility] Tobacco Use History This section includes a history of the smoking, or tobacco -related health factors, that were collected on or before the date of the Encoun ter. The data comes from the OR facility where the Encounter took place. Date/Time Smoking Status/Tobacco Use Comment [facility] it Jun 18, 2013 01:14 PM [...] the Encounter. Date/Time Encounter Note(s) Provider Source Sep 09, 2020 02:33 PM NONVA NOTE: LOCAL TITLE: COMMUNITY CARE-MISCELLANEOUS STANDARD TITLE: NONVA NOTE DATE OF NOTE: SEP 09, 2020@14:33 ENTRY DATE: SEP 09, 2020@14:33:30 AUTHOR: RENETTA WOLFF EXP COSIGNER: URGENCY: STATUS: COMPLETED COMMUNITY CARE-MISCELLANEOUS Has ADDENDA ILDEFOSNO-CHIN/RFS Urgency: Routine VST-CHIN/RFS Request sent to [facility]: Yes --Received a faxed RFS from Dr. Limon @ [facility] who is requesting a new community care Neurology consult for continued care. DX: Tremors [address] T [phone] F [phone] Dr. Garcia if you agree, please enter as requested. Thank you All requests for community care that is offered at [facility] (regardless of [place] eligibility) must be entered as [facility] consults first and be opted into community care by that specialty team or the records coordinator team, if applicable. /karey Wolff MS,RN,[facility] OCC Consult Tour Driver Signed: 09/09/2020 14:33 Receipt Acknowledged By: 09/09/2020 14:43 /karey MARTINEZ RN NURSING SERVICE * AWAITING SIGNATURE * JER GARCIA 09/09/2020 ADDENDUM STATUS: COMPLETED Jer, for your consideration. /karey MARTINEZ RN NURSING SERVICE Signed: 09/09/2020 14:44 Receipt Acknowledged By: * AWAITING SIGNATURE * JER GARCIA [place] [facility]
--- OUTSIDE RECORDS SUMMARY | 2021-02-26 00:29 | XMS REPORT | Encounter Summary ---
Author Author Department [facility] MAYI ruth Organization Department of [facility] Address Unknown Phone Unavailable Care Team Providers Care Product Safety Expert Name Role Phone JER GARCIA PCP Unavailable [...] Name Patient's Relationship to Policy Baeza AETNA [facility] (WNR) MEDICARE ADVANTAGE [facility](WNR) Jul 18, 2019 00 [place] [id number] MAYI ONEAL PATIENT COVENTRY MCR (WNR) MEDICARE ADVANTAGE [facility] (WNR) Jul 18, 2012 [id number] MAYI ONEAL PATIENT [facility]ENTRY MCR (WNR) MEDICARE ADVANTAGE MCR (WNR) Jul 18, 2012 [id number] MAYI ONEAL PATIENT [facility]ENTRY MCR (WNR) MEDICARE ADVANTAGE [facility] (WNR) Jul 18, 2012 [id number] MAYI ONEAL PATIENT MEDICARE (WNR) MEDICARE (M) PART B Jul 18, 2009 PART B [id number] MAYI ONEAL PATIENT MEDICARE (WNR) MEDICARE (M) PART B Jul 18, 2009 PART B [id number] [phone] MAYI ONEAL PATIENT MEDICARE (WNR) MEDICARE (M) PART A Oct 16, 2008 PART A [id number] MAYI ONEAL PATIENT MEDICARE (WNR) MEDICARE (M) PART A Oct 16, 2008 PART A [id number] [phone] MAYI ONEAL PATIENT MEDICARE PART D (WNR) MEDICARE (M) PART D Jul 18, 2015 PART D [id number] JMGENE PATIENT MEDICARE PART D (WNR) MEDICARE (M) PART D Jul 18, 2015 PART D [id number] MAYI ONEAL PATIENT MEDICARE PART D (WNR) MEDICARE (M) PART D Jul 18, 2012 PART D [id number] MAYI ONEAL PATIENT MEDICARE PART D (WNR) MEDICARE (M) PART D Jul 18, 2012 PART D [id number] MAYI ONEAL PATIENT Selected Encounter This section includes the information on record at [place] for the Encounter. Date/Time Encounter Type Encounter Description Reason Provider Source Oct 24, 2020 08:21 AM Outpatient Encounter COMMUNITY CARE CONSULT IHE Encounter Template Text not used by [place] Assessments - Encounter Diagnoses No Data Provided for This Section Plan of Treatment: Future Appointments (+ 6 months) and Future Tests (+/- 45 day s) The Plan of Treatment section includes future care activities for the patient fr om all [place] treatment facilities. This section includes future appointments and fu ture orders which are active, pending or scheduled. Future Appointments This section includes appointments that were scheduled t o occur 6 months from the date of the Encounter, up to a maximum of 20 appointme nts. The data comes from all [place] treatment facilities. Appointment Date/Time Appointment Type Appointment Facili ty Name Oct 30, 2020 08:00 AM AMBULATORY - NONE [facility] November 20, 2020 02:00 PM AMBULATORY - [facility]RY [facility] November 27, 2020 02:25 PM AMBULATORY - NONE [facility] Dec 29, 2020 10:00 AM AMBULATORY - NONE [facility] Jan 01, 2021 02:30 PM AMBULATORY - PS[facility]ATRY [facility] [facility] Mar 19, 2021 11:30 AM AMBULATORY - PS[facility]ATRY [place] [facility] Surgical Procedures: All associated to the encounter [...] and tobacco- related health factors from the AL facility where the Encounter took place. Current Smoking Status This section includes the most current smoking, or tobacco -related health factor, from the AL facility where the Encounter took place. Date/Time Current Smoking Status Comment Facility Jun 18, 2013 01:14 PM V16 TOBACCO USE SCREEN [facility] Tobacco Use History This section includes a history of the smoking, or tobacco -related health factors, that were collected on or before the date of the Encoun ter. The data comes from the [place] facility where the Encounter took place. Date/Time Smoking Status/Tobacco Use Comment [facility] Jun 18, 2013 01:14 PM [...] the Encounter. Date/Time Encounter Note(s) Provider Source Oct 24, 2020 08:21 AM NONVA NOTE: LOCAL TITLE: [facility]-MISCELLANEOUS STANDARD TITLE: NONVA NOTE DATE OF NOTE: OCT 24, 2020@08:21 ENTRY DATE: OCT 24, 2020@08:21:26 AUTHOR: ATUL GILLETTE COSIGNER: URGENCY: STATUS: COMPLETED ILDEFONSO-CHIN/RFS Urgency: w/in 1 wk VST-CHIN/RFS Request sent to [facility]: Yes Received RFS via fax on 10/23/20. Dr. Ferny [facility]ina [facility] is requesting continuation of care for Office visit [id number]; PSA [id number]; US transrectal 87802; us Guidance Needle Placement 09020; Needle Bx Prostate 97130. DX: Dysplasia of Prostate Other N42.[address] Ferny Devine [facility] [address] [place] [address] P: [phone] F: [phone] NPI- [id number] MS. GARCIA PLEASE REVIEW ABOVE AND ENTER UROLOGY CONSULT The Office of Community Care can no longer extend consults. Enter a new [facility] consult for Urology RCT to review. Include above information. If outsourcing is needed, they will forward consult to community care. Thank you. /mauri/ JIM BAIRES, RN Consult Management Nurse Signed: 10/24/2020 08:21 Receipt Acknowledged By: * AWAITING SIGNATURE * JER GARCIA [place] [facility]
--- OUTSIDE RECORDS SUMMARY | 2021-02-26 00:29 | XMS REPORT | Encounter Summary ---
Author Author Department [facility] MAYI ruth Organization Department of [facility] Address Unknown Phone Unavailable Care Team Providers Care Corner Cutter Machine Operator Name Role Phone JER GARCIA PCP Unavailable [...] [facility] Jul 18, 2019 00 [place] [id number] MAYI ONEAL PATIENT COVENTRY MCR (WNR) MEDICARE ADVANTAGE [facility] (WNR) Jul 18, 2012 [id number] MAYI ONEAL PATIENT [facility]OVENTRY MCR (WNR) MEDICARE ADVANTAGE MCR (WNR) Jul 18, 2012 [id number] MAYI ONEAL PATIENT [facility] MCR (WNR) MEDICARE ADVANTAGE [facility] (WNR) Jul 18, 2012 [id number] MAYI ONEAL PATIENT MEDICARE (WNR) MEDICARE (M) PART B Jul 18, 2009 PART B [id number] MAYI ONEAL PATIENT MEDICARE (WNR) MEDICARE (M) PART B Jul 18, 2009 PART B [id number] [phone] MAYI ONEAL PATIENT MEDICARE (WNR) MEDICARE (M) PART A Oct 16, 2008 PART A [id number] MAYI ONEAL PATIENT MEDICARE (WNR) MEDICARE (M) PART A Oct 16, 2008 PART A [id number] [phone] JMGENE PATIENT MEDICARE PART D (WNR) MEDICARE (M) PART D Jul 18, 2015 PART D [id number] JMGENE PATIENT MEDICARE PART D (WNR) MEDICARE (M) PART D Jul 18, 2015 PART D [id number] JMGENE PATIENT MEDICARE PART D (WNR) MEDICARE (M) PART D Jul 18, 2012 PART D [id number] MAYI ONEAL PATIENT MEDICARE PART D (WNR) MEDICARE (M) PART D Jul 18, 2012 PART D [id number] MAYI ONEAL PATIENT Selected Encounter This section includes the information on record at [place] for the Encounter. Date/Time Encounter Type Encounter Description Reason Provider Source Dec 23, 2020 02:14 PM Outpatient Encounter COMMUNITY CARE CONSULT IHE [...] Date/Time Appointment Type Appointment Facili ty Name Dec 29, 2020 10:00 AM AMBULATORY - NONE [facility] Jan 01, 2021 02:30 PM AM[facility]ULATORY [place] [facility] [facility] Mar 19, 2021 11:30 AM AM[facility] - [facility]RY [facility] Surgical Procedures: All associated to [...] took place. Date/Time Smoking Status/Tobacco Use Comment [facility] it Jun 18, 2013 01:14 PM [...] the Encounter. Date/Time Encounter Note(s) Provider Source Dec 23, 2020 02:14 PM NONVA NOTE: LOCAL TITLE: [facility]-MISCELLANEOUS STANDARD TITLE: NONVA NOTE DATE OF NOTE: DEC 23, 2020@14:14 ENTRY DATE: DEC 23, 2020@14:14:16 AUTHOR: CAITIE ADAIR EXP COSIGNER: URGENCY: STATUS: COMPLETED Fax received 12/23/20 1343 ILDEFONSO-CHIN/RFS Urgency: w/in 48 hrs VST-CHIN/RFS Request sent to [facility]: Yes Dr. Ferny Devine/[facility] Requesting referral to the following provider for Consult, Radiation Therapy: Dr. Milan Garcia [facility]iation On[facility] [place], [place] Dx: C61 Prostate Cancer 12/02/20 Pathology Report included w RFS sent to [facility] for scanning. Enter a Community Care Radiation Therapy Consult with this information. /mauri/ CAITIE ADAIR BSN, RN OCC RN Boom Man Signed: 12/23/2020 14:14 Receipt Acknowledged By: * AWAITING SIGNATURE * GARCIA,JER C BROWN,CAITIE [place] [facility]
--- OUTSIDE RECORDS SUMMARY | 2021-02-26 00:30 | XMS REPORT | Encounter Summary ---
Author Author Department [facility] MAYI ruth Organization Department of [facility] Address Unknown Phone Unavailable Care Team Providers Care Space And Missile Operations Name Role Phone JER GARCIA PCP Unavailable [...] Relationship to Policy Baeza AETNA [facility] (WNR) MEDICARE ADVANTAGE [facility](WNR) Jul 18, 2019 00 [place] [id number] MAYI ONEAL PATIENT [facility] (WNR) MEDICARE ADVANTAGE [facility] (WNR) Jul 18, 2012 [id number] MAYI ONEAL PATIENT [facility] (WNR) MEDICARE ADVANTAGE [facility] (WNR) Jul 18, 2012 [id number] MAYI ONEAL PATIENT [facility] (WNR) MEDICARE ADVANTAGE [facility] (WNR) Jul 18, 2012 [id number] MAYI ONEAL PATIENT MEDICARE (WNR) MEDICARE (M) PART B Jul 18, 2009 PART B [id number] MAYI ONEAL PATIENT MEDICARE (WNR) MEDICARE (M) PART B Jul 18, 2009 PART B [id number] [phone] MAYI ONEAL PATIENT MEDICARE (WNR) MEDICARE (M) PART A Oct 16, 2008 PART A [id number] MAYI ONEAL PATIENT MEDICARE (WNR) MEDICARE (M) PART A Oct 16, 2008 PART A [id number] [place] PATIENT MEDICARE PART D (WNR) MEDICARE (M) PART D Jul 18, 2015 PART D [id number] [place] PATIENT MEDICARE PART D (WNR) MEDICARE (M) PART D Jul 18, 2015 PART D [id number] [place] PATIENT MEDICARE PART D (WNR) MEDICARE (M) PART D Jul 18, 2012 PART D [id number] MAYI ONEAL PATIENT MEDICARE PART D (WNR) MEDICARE (M) PART D Jul 18, 2012 PART D [id number] MAYI ONEAL PATIENT Selected Encounter This section includes the information on record at [place] for the Encounter. Date/Time Encounter Type Encounter Description Reason Provider Source Dec 24, 2020 04:56 PM Outpatient Encounter COMMUNITY CARE CONSULT IHE Encounter Template Text not used by [place] Assessments - Encounter Diagnoses No Data Provided for This Section Plan of Treatment: Future Appointments (+ 6 months) and Future Tests (+/- 45 day s) The Plan of Treatment section includes future care activities for the patient fr om all [place] treatment facilities. This section includes future appointments and fu ture orders which are active, pending or scheduled. Future Appointments This section includes appointments that were scheduled t o occur 6 months from the date of the Encounter, up to a maximum of 20 appointme nts. The data comes from all [place] treatment facilities. Appointment Date/Time Appointment Type Appointment Facili ty Name Dec 29, 2020 10:00 AM AMBULATORY - NONE [facility] Jan 01, 2021 02:30 PM [facility] [place] [facility] Mar 19, 2021 11:30 AM AM[facility]UL[facility] - [facility] Surgical Procedures: All associated to [...] and tobacco- related health factors from the [place] facility where the Encounter took place. Current Smoking Status This section includes the most current smoking, or tobacco -related health factor, from the [place] facility where the Encounter took place. Date/Time Current Smoking Status Comment Facility Jun 18, 2013 01:14 PM V16 TOBACCO USE SCREEN [facility] Tobacco Use History This section includes a history of the smoking, or tobacco -related health factors, that were collected on or before the date of the Encoun ter. The data comes from the [place] facility where the Encounter took place. Date/Time Smoking Status/Tobacco Use Comment [facility] it Jun 18, 2013 01:14 PM V16 [...] Encounter. Date/Time Encounter Note(s) Provider Source Dec 24, 2020 04:56 PM NONVA NOTE: LOCAL TITLE: COMMUNITY CARE-COORDINATION PLAN STANDARD TITLE: NONVA NOTE DATE OF NOTE: DEC 24, 2020@16:56 ENTRY DATE: DEC 24, 2020@16:56:10 AUTHOR: JIL GARCIA EXP COSIGNER: URGENCY: STATUS: COMPLETED [facility] Community Care Office Care Coordination Plan Note Last Name: Bud Centenoan First Name: Mayi Social: [phone] Chief Complaint:Prostate Cancer Risks (e.g. clinical or biophysical risks identified from S/T tool or brief chart review, such as dementia, homelessness, no family support, etc. If unknown, state "Unknown"): Level of Care Coordination: Complex Addenda Included (please enter "Yes" if this note includes any of the following): Case Management: Continued Stay Review: Disease Management: Discharge Planning: Patient Contact: Provider Contact: Transfer: FACILITY COMMUNITY CARE OFFICE CONTACT Care Coordination Point of Contact: Jil Garcia ext [phone] 'S?CAREGIVER?CONTACT INFO Is 's caregiver same as next of kin listed in the demographic section of CPRS (Yes/No)?: If no, provide the following: [place]'s Caregiver Point of Contact: Caregiver's Relationship to [place]: Caregiver's Primary Phone Number: Caregiver's Alternate Phone Number: CONSULT AND REFERRAL INFORMATION Name of Referring [place] Provider: JER Tompkins SEOC: Radiation Therapy [facility] 1.0.9 PRCT REV Referral Number: [id number] Unique Consult ID: [id number] Patient Admitted (Yes/No): If yes, then please complete?the Discharge?Planning Addendum. APPOINTMENT MANAGEMENT / MEDICAL RECORDS Appointment Community Provider/Facility: [facility] Appointment Care Site/Location: [facility]-[address] [place] [address], [id number] Appointment Date: Appointment Status:Sent Appointment Provider Name: [facility] Appointment Provider Treating Specialty: Radiology - Radiation Oncology Appointment Provider Appointment Provider Email: PLAN:Proceed with scheduling /es/ JIL GARCIA OCC Advanced Medical Support Asst Signed: 12/24/2020 16:56 JIL GARCIA [facility]
--- OUTSIDE RECORDS SUMMARY | 2021-02-26 00:30 | XMS REPORT | Encounter Summary ---
Author Author Department [facility] MAYI ruth Organization Department of [facility] Address Unknown Phone Unavailable Care Team Providers Care Dental Lab Technician Name Role Phone JER GARCIA PCP Unavailable [...] Name Patient's Relationship to Policy Baeza AETNA [facility] (WNR) MEDICARE ADVANTAGE [facility](WNR) Jul 18, 2019 00 [place] [id number] MAYI ONEAL PATIENT [facility] (WNR) MEDICARE ADVANTAGE [facility] (WNR) Jul 18, 2012 [id number] MAYI ONEAL PATIENT [facility] (WNR) MEDICARE ADVANTAGE [facility] (WNR) Jul 18, 2012 [id number] MAYI ONEAL PATIENT [facility] (WNR) MEDICARE ADVANTAGE [facility] (WNR) Jul 18, 2012 [id number] MAYI OENAL PATIENT MEDICARE (WNR) MEDICARE (M) PART B Jul 18, 2009 PART B [id number] MAYI ONEAL PATIENT MEDICARE (WNR) MEDICARE (M) PART B Jul 18, 2009 PART B [id number] [phone] MAYI ONEAL PATIENT MEDICARE (WNR) MEDICARE (M) PART A Oct 16, 2008 PART A [id number] JMG[place] PATIENT MEDICARE (WNR) MEDICARE (M) PART A Oct 16, 2008 PART A [id number] [phone] [place]MG[place] PATIENT MEDICARE PART D (WNR) MEDICARE (M) PART D Jul 18, 2015 PART D [id number] [place] PATIENT MEDICARE PART D (WNR) MEDICARE (M) PART D Jul 18, 2015 PART D [id number] [place] PATIENT MEDICARE PART D (WNR) MEDICARE (M) PART D Jul 18, 2012 PART D [id number] MAYI ONEAL PATIENT MEDICARE PART D (WNR) MEDICARE (M) PART D Jul 18, 2012 PART D [id number] MAYI ONEAL PATIENT Selected Encounter This section includes the information on record at [place] for the Encounter. Date/Time Encounter Type Encounter Description Reason Provider Source Dec 29, 2020 12:00 AM Outpatient Encounter COMMUNITY CARE CONSULT IHE Encounter Template Text not used by [place] Assessments - Encounter Diagnoses No Data Provided for This Section Plan of Treatment: Future Appointments (+ 6 months) and Future Tests (+/- 45 day s) The Plan of Treatment section includes future care activities for the patient fr om all [place] treatment facilities. This section includes future appointments and fu ture orders which are active, pending or scheduled. Future Appointments This section includes appointments that were scheduled t o occur 6 months from the date of the Encounter, up to a maximum of 20 appointme nts. The data comes from all [place] treatment facilities. Appointment Date/Time Appointment Type Appointment Facili ty Name Jan 01, 2021 02:30 PM AMBULATORY - PSYCHIATRY [facility] Mar 19, 2021 11:30 AM AMBULATORY - PSYCHIATRY [facility] Surgical Procedures: All associated to [...] and tobacco- related health factors from the [place] facility where the Encounter took place. Current Smoking Status This section includes the most current smoking, or tobacco -related health factor, from the [place] facility where the Encounter took place. Date/Time Current Smoking Status Comment Facility Jun 18, 2013 01:14 PM V16 TOBACCO USE SCREEN [facility] Tobacco Use History This section includes a history of the smoking, or tobacco -related health factors, that were collected on or before the date of the Encoun ter. The data comes from the [place] facility where the Encounter took place. Date/Time Smoking Status/Tobacco Use Comment Facil ity Jun 18, 2013 01:14 PM V16 TOBACCO [...] Encounter. Date/Time Encounter Note(s) Provider Source Dec 29, 2020 12:00 AM NONVA CONSULT: LOCAL TITLE: COMMUNITY CARE-CONSULT RESULT NOTE STANDARD TITLE: NONVA CONSULT DATE OF NOTE: DEC 29, 2020 ENTRY DATE: JAN 21, 2021@12:52:08 AUTHOR: SARANYA ALMAGUER EXP COSIGNER: URGENCY: STATUS: COMPLETED [facility] - Scanned Document VIA DESTINY 06.14.21 VISIT /es/ SARANYA ALMAGUER [employer] Signed: 01/21/2021 12:52 SARANYA ALMAGUER [facility]
--- OUTSIDE RECORDS SUMMARY | 2021-02-26 00:30 | XMS REPORT | Encounter Summary ---
Author Author Department [facility] MAYI ruth Organization Department of [facility] Address Unknown Phone Unavailable Care Team Providers Care Large Sheetfed Press Operator Name Role Phone JER GARCIA PCP [...] Name Patient's Relationship to Policy Baeza AETNA [facility] (WNR) MEDICARE ADVANTAGE [facility](WNR) Jul 18, 2019 00 [place] [id number] MAYI ONEAL PATIENT [facility] (WNR) MEDICARE ADVANTAGE [facility] (WNR) Jul 18, 2012 [id number] MAYI ONEAL PATIENT [facility] (WNR) MEDICARE ADVANTAGE [facility] (WNR) Jul 18, 2012 [id number] MAYI ONEAL PATIENT [facility] (WNR) MEDICARE ADVANTAGE [facility] (WNR) Jul 18, 2012 [id number] MAYI ONEAL PATIENT MEDICARE (WNR) MEDICARE (M) PART B Jul 18, 2009 PART B [id number] MAYI ONEAL PATIENT MEDICARE (WNR) MEDICARE (M) PART B Jul 18, 2009 PART B [id number] [phone] MAYI ONEAL PATIENT MEDICARE (WNR) MEDICARE (M) PART A Oct 16, 2008 PART A [id number] [place] PATIENT MEDICARE (WNR) MEDICARE (M) PART A Oct 16, 2008 PART A [id number] [phone] [place] PATIENT MEDICARE PART D (WNR) MEDICARE (M) PART D Jul 18, 2015 PART D [id number] [place] PATIENT MEDICARE PART D (WNR) MEDICARE (M) PART D Jul 18, 2015 PART D [id number] [place] PATIENT MEDICARE PART D (WNR) MEDICARE (M) PART D Jul 18, 2012 PART D [id number] MAYI ONEAL PATIENT MEDICARE PART D (WNR) MEDICARE (M) PART D Jul 18, 2012 PART D [id number] MAYI ONEAL PATIENT Selected Encounter This section includes the information on record at [place] for the Encounter. Date/Time Encounter Type Encounter Description Reason Provider Source Feb 19, 2021 08:54 AM Outpatient Encounter ADMIN PAT ACTIVTIES ([facility]) IHE Encounter Template Text not used by [place] [...] Appointment Type Appointment Facili ty Name Mar 19, 2021 11:30 AM AMBULATORY - PSYCHIATRY [facility] Surgical Procedures: All associated [...] took place. Date/Time Smoking Status/Tobacco Use Comment [facility] Jun 18, 2013 01:14 PM V16 [...] the Encounter. Date/Time Encounter Note(s) Provider Source Feb 19, 2021 08:54 AM ADMINISTRATIVE NOTE: LOCAL TITLE: ADMINISTRATIVE NOTE STANDARD TITLE: ADMINISTRATIVE NOTE DATE OF NOTE: FEB 19, 2021@08:54 ENTRY DATE: FEB 19, 2021@08:54:43 AUTHOR: THERESA HIGHTOWER COSIGNER: URGENCY: STATUS: COMPLETED ADMINISTRATIVE NOTE Has ADDENDA [place] calling in today would like to speak with you today doc about his increase of grinding of teeth and what may be done for this. WHile education professor it was noted that he had an rtc request in and he was scheduled for said request. may vet be aided in his concern /mauri/ THERESA LU[facility]AN [facility] Signed: 02/19/2021 08:56 Receipt Acknowledged By: 02/25/2021 10:33 /mauri/ SUDEEP GRIGGS PSYCHIATRIST 02/19/2021 ADDENDUM STATUS: COMPLETED Caitie, can you please call Vet and ask if the movements are new? is his jaw moving or is he grinding his teeth? Is he consistent with benztropine? /es/ SUDEEP MENDOZA PSYCHIATRIST Signed: 02/19/2021 15:13 Receipt Acknowledged By: 02/20/2021 09:36 /mauri/ CAITIE JORDAN RN PRIMARY CARE REGISTERED NURSE-KERI 02/20/2021 ADDENDUM STATUS: COMPLETED [place] reports the teeth grinding has been going on for several months. Reports it is staying the same, not getting any worse and he states this happens "all the time". Currently reports his neurologist is prescribing 0.5 mg benztropine BID and is taking it consistently but does not feel this med helps. Reports the only thing that he feels helps him with the teeth grinding is Ablilify that is not currently prescribed but reports that he has been taking an old script and the dose is 7.5 mg. Reviewed with to only take medications that are prescribed and that the information will be pass on to Dr Mendoza. [place] reports that he will be seeing his neurologist out in the community today. Encouraged him to discuss teeth grinding with this provider as well. Will also add Camilla Rose to aid with f/u information since I will be out of the office next week. /mauri/ CAITIE STARK RN PRIMARY CARE REGISTERED NURSE-KERI Signed: 02/20/2021 09:35 Receipt Acknowledged By: 02/25/2021 10:43 /mauri/ CAMILLA CHE RN PRIMARY CARE REGISTERED NURSE-KERI 02/25/2021 10:30 /mauri/ SUDEEP GRIGGS PSYCHIATRIST 02/25/2021 ADDENDUM STATUS: COMPLETED He should not take Abilify as this can make grinding worse. What did his neurologist recommend? - I recommend we try increasing benztropine to 1mg po BID - I can send this out from the [place]- just make surehe does not take more than this if he has another prescription. /mauri/ SUDEEP MENDOZA PSYCHIATRIST Signed: 02/25/2021 10:32 Receipt Acknowledged By: 02/25/2021 10:36 /mauri/ CAMILLA CHE RN PRIMARY CARE REGISTERED NURSE-KERI 02/25/2021 ADDENDUM STATUS: COMPLETED Attempted to contac the [place] regarding Dr. Mendoza's recommendations. No answer to the call. A VM was left with directions given by Dr. Mendoza and request for return call. My contact information was left on the VM as well. /mauri/ CAMILLA ROSE RN PRIMARY CARE REGISTERED NURSE-KERI Signed: 02/25/2021 10:37 THERESA HIGHTOWER [facility]
--- OUTSIDE RECORDS SUMMARY | 2021-02-26 00:30 | XMS REPORT | Encounter Summary ---
Author Author Department [facility] Address Unknown Phone Unavailable Care Team Providers Care Virtual Assistant Name Role Phone JER GARCIA PCP Unavailable [...] CENTER (WNR) MEDICARE ADVANTAGE [facility](R) Jul 18, [id number] MAYI FARRELL PATIENT [facility] (WNR) MEDICARE ADVANTAGE [facility] (WNR) Jul 18, 2012 [id number] MAYI FARRELL PATIENT [facility] (WNR) MEDICARE ADVANTAGE [facility] (WNR) Jul 18, 2012 [id number] MAYI FARRELL [facility]IENT [facility] (WNR) MEDICARE ADVANTAGE [facility] (WNR) Jul 18, 2012 [id number] MAYI FARRELL PATIENT MEDICARE (WNR) MEDICARE (M) PART B Jul 18, 2009 PART B [id number] MAYI FARRELL PATIENT MEDICARE (WNR) MEDICARE (M) PART B Jul 18, 2009 PART B [id number] [phone] FARRELL,GENE PATIENT MEDICARE (WNR) MEDICARE (M) PART A Oct 16, 2008 PART A [id number] JMGENE PATIENT MEDICARE (WNR) MEDICARE (M) PART A Oct 16, 2008 PART A [id number] JMGENE PATIENT MEDICARE PART D (WNR) MEDICARE (M) PART D Jul 18, 2015 PART D [id number] JMGENE PATIENT MEDICARE PART D (WNR) MEDICARE (M) PART D Jul 18, 2015 PART D [id number] JMGENE PATIENT MEDICARE PART D (WNR) MEDICARE (M) PART D Jul 18, 2012 PART D [id number] MAYI FARRELL PATIENT MEDICARE PART D (WNR) MEDICARE (M) PART D Jul 18, 2012 PART D [id number] MAYI FARRELL PATIENT Selected Encounter This section includes the information on record at [place] for the Encounter. Date/Time Encounter Type Encounter Description Reason Provider Source Jan 01, 2021 02:30 PM Outpatient Encounter TELEPHONE MH ICD-1 0-CM F33.9 Major depressive disorder, recurrent, unspecified with Provider Comments: Depression ([facility] [id number]) TOMMIE MENDOZA Reny Encounter Template Text not used by [place] Assessments - Encounter Diagnoses This section includes the primary and secondary diag noses documented for the Encounter. Date/Time Primary/Secondary Diagnosis Diagnosis Name Provider Source Jan 01, 2021 02:30 PM PRIMARY Major depressive disorder, recurrent, unspecified TOMMIE MENDOZA [facility] Jan 01, 2021 02:30 PM SECONDARY Insomnia, unspecified Lizz MNEDOZA [facility] Plan of Treatment: Future Appointments (+ 6 months) and Future Tests (+/- 45 day s) The Plan of Treatment section includes future care activities for the patient fr om all [place] treatment facilities. This section includes future appointments and fu ture orders which are active, pending or scheduled. Future Appointments This section includes appointments that were scheduled t o occur 6 months from the date of the Encounter, up to a maximum of 20 appointme nts. The data comes from all [place] treatment facilities. Appointment Date/Time Appointment Type Appointment Facili ty Name Mar 19, 2021 11:30 AM AMBULATORY - PSYCHIATRY [facility] Surgical Procedures: All associated to [...] in Height Weight Body Mass Index Source Jan 01, 2021 12:38 PM 0 [facility] Immunizations: All administered on the encounter date No Data Provided for This Section Social History: Smoking Status (Most current) and Tobacco Use (All prior to enco unter date) This section includes the most current, and the historical, smoking and tobacco- related health factors from the [place] facility where the Encounter took place. Current Smoking Status This section includes the most current smoking, or tobacco -related health factor, from the [place] facility where the Encounter took place. Date/Time Current Smoking Status Comment Facility Oct 02, 2020 02:00 PM VA-TOBACCO NEVER USED [facility] Tobacco Use History This section includes a history of the smoking, or tobacco -related health factors, that were collected on or before the date of the Encoun ter. The data comes from the [place] facility where the Encounter took place. Date/Time Smoking Status/Tobacco Use Comment Judith ity Oct 14, 2018 01:47 PM V16 TOBACCO USE SCREEN [facility] [place] Oct 14, 2018 01:47 PM VA-TOBACCO FORMER USER [facility] [place] Oct 14, 2018 01:47 PM VA-TOBACCO QUIT 15 YRS OR MORE [facility] Advance Directives: All historical and current No Data Provided for This Section Radiology Reports: +/- 30 days of the encounter No Data Provided for This Section Pathology Reports: +/- 30 days of the encounter No Data Provided for This Section Encounter Notes: All associated encounter notes This section contains the clinical notes associated to the Encounter. Date/Time Encounter Note(s) Provider Source Jan 01, 2021 03:49 PM ACCOUNTING OF DISCLOSURES NO TE: LOCAL TITLE: STATE PRESCRIPTION DRUG MONITORING PROGRAM STANDARD TITLE: ACCOUNTING OF DISCLOSURES NOTE DATE OF NOTE: JAN 01, 2021@15:49:46 ENTRY DATE: JAN 01, 2021@15:49:46 AUTHOR: TOMMIE MENDOZA EXP COSIGNER: URGENCY: STATUS: COMPLETED This PDMP query was submitted by Tommie Mendoza. The clinical justification for this PDMP query is to review controlled substances prescribed outside of the [place], and any additional information that may become available, as an important component of standard clinical care, and in accordance with [facility] policy. Patient information was shared with the PDMP Appriss [place]. Prescription(s) filled outside the [facility] in the last 90 days are noted. However, they do not raise significant safety concerns and do not influence the treatment plan at this time. 2 days of hydrocodone in september- likely a fter the biopsy /mauri/ TOMMIE MENDOZA PSYCHIATRIST Signed: 01/01/2021 15:49 TOMMIE MENDOZA [facility] Jan 01, 2021 03:40 PM MEDICATION MGT NOTE: LOCAL TITLE: MEDICATION RECONCILIATION (PROVIDER) STANDARD TITLE: MEDICATION MGT NOTE DATE OF NOTE: JAN 01, 2021@15:40 ENTRY DATE: JAN 01, 2021@15:40:26 AUTHOR: TOMMIE MENDOZA EXP COSIGNER: URGENCY: STATUS: COMPLETED Medication Reconciliation COMPLETED (Outpatient): The following medication additions, deletions, dosage changes, OR duplications were identified and discussed with patient/caregiver. Specify: d/c zolpidem and start temazepam This Medication Reconciliation note and Patient Medication Information Cover Sheet were reviewed with the patient and/or caregiver and all questions answered. A copy of this note was given to or mailed to patient and/or caregiver at the end of this visit. Remote and Local Allergies: FACILITY ALLERGY/ADR -------- No Remote Allergy/ADR Data available for this patient [facility] ERYTHROMYCIN [facility] FINASTERIDE [facility] GABAPENTIN [facility] SIMVASTATIN [facility] VENLAFAXINE A list of active outpatient prescriptions dispensed from this local [place] and dispensed remotely from another [place] or [facility] facility as well as local, pending and active inpatient orders, local clinic medications, locally documented non-VA medications, and local prescriptions that have or been discontinued in the past 90 days has been generated below. If the list for review does not include a component, then it was not applicable to this patient. Active Outpatient Medications (excluding Supplies): Active Outpatient Medications Status 1) ATORVASTATIN 20MG TAB TAKE ONE-HALF TABLET BY MOUTH ACTIVE AT BEDTIME FOR CHOLESTEROL - DO NOT TAKE WITH GRAPEFRUIT JUICE 2) DUTASTERIDE 0.5MG CAP *HD* TAKE ONE CAPSULE BY MOUTH ACTIVE ONCE DAILY REPLACES FINASTERIDE FOR PROSTATE (CONSULT APPROVED) 3) QUETIAPINE 300MG TAB TAKE ONE TABLET BY MOUTH EVERY ACTIVE MORNING FOR MOOD 4) TEMAZEPAM 7.5MG CAP *HD* TAKE ONE CAPSULE BY MOUTH ACTIVE (S) AT BEDTIME -(MAY CAUSE DROWSINESS) FOR INSOMNIA Active Non-VA Medications Status 1) Non-VA ACETAMINOPHEN 325MG TAB 650MG MOUTH THREE ACTIVE TIMES A DAY NEEDED 2) Non-VA CARBIDOPA 25/LEVODOPA 100MG UD TAB 1 TABLET ACTIVE (25/100) MOUTH THREE TIMES DAILY 3) Non-VA GARLIC (OTC) 2 CAPSULES MOUTH ONCE DAILY ACTIVE 4) Non-VA MULTIVITAMIN CAP/TAB 1 CAP/TAB MOUTH ACTIVE 5) Non-VA NON-VA DRUG ASSESSMENT DONE CAP/TAB MOUTH ACTIVE 6) Non-VA OMEGA-3 ACID CAP,ORAL MOUTH ACTIVE 7) Non-VA UNKNOWN HERBAL/DRUG(PutNameIn Comments CAP/TAB ACTIVE QUNOL MOUTH ONCE DAILY 11 Total Medications No Active Remote Medications for this patient /es/ TOMMIE MENDOZA PSYCHIATRIST Signed: 01/01/2021 15:40 T[facility]MIE MENDOZA [facility] Jan 01, 2021 03:40 PM SUICIDE PREVENTION RISK ASSE SSMENT SCREENING NOTE: LOCAL TITLE: SUICIDE RISK SCREENER-SECONDARY STANDARD TITLE: SUICIDE PREVENTION RISK ASSESSMENT SCREENING NOT DATE OF NOTE: JAN 01, 2021@15:40 ENTRY DATE: JAN 01, 2021@15:41:03 AUTHOR: TOMMIE MENDOZA EXP COSIGNER: URGENCY: STATUS: COMPLETED [place]-Suicide Severity Rating Scale (C-SSRS Screener) 1. Over the past month, have you wished you were or wished you could go to sleep and not wake up? Yes 2. Over the past month, have you had any actual thoughts of killing yourself? No 3. Over the past month, have you been thinking about how you might do this? Response not required due to responses to other questions. 4. Over the past month, have you had these thoughts and had some intention of acting on them? Response not required due to responses to other questions. 5. Over the past month, have you started to work out or worked out the details of how to kill yourself? Response not required due to responses to other questions. 6. If yes, at any time in the past month did you intend to carry out this plan? Response not required due to responses to other questions. 7. In your lifetime, have you ever done anything, started to do anything, or prepared to do anything to end your life (for example, collected pills, obtained a gun, gave away valuables, went to the roof but didn't jump)? Yes 8. If YES, was this within the past 3 months? Valerie /mauri/ TOMMIE MENDOZA PSYCHIATRIST Signed: 01/01/2021 15:41 TOMMIE MENDOZA [facility] Jan 01, 2021 01:35 PM MENTAL HEALTH NOTE: LOCAL TITLE: [facility] INDIVIDUAL NOTE STANDARD TITLE: MENTAL HEALTH NOTE DATE OF NOTE: JAN 01, 2021@13:35 ENTRY DATE: JAN 01, 2021@13:35:44 AUTHOR: TOMMIE MENDOZA EXP COSIGNER: URGENCY: STATUS: COMPLETED PSYCHIATRIC OUTPATIENT PROGRESS NOTE TELECARE VISIT DUE TO COVID 19 PANDMEIC and provider working remotely Time Spent : 20mins Mr. Farrell is a 70 year old MALE [facility] [place]. [place] carries a psychiatric diagnosis of Unspecified Depressive Disorder Unspecified Anxiety DIsorder, Insomnnia, Parkinson's disease We had a telecare session in October,. [place] reports improvement in mood but denies any improvement with sleep. He would like an increase in quetiapine dose but due to concerns over Antidopaminergic action with Parkinsons' disease would not recommend this. Will try to find another sleep aid which Kamilah can tolerate and hopefully reduce antipsychotic over time. He denies experiencing suicidal ideation intent or urge to end his life. He has had 2 attempts in the past. Medication adjustments were made, will d/c mirtazapine as not providing any benefit for sleep (primarily prescribed for this) Will eval if d/c of mirtazapine has any impact on mood trial cyproheptadine 4mgspo qhs for sleep Will continue quetiapine 300mgs po qhs for now contiue benztropine 1mg po BID INTERVAL HISTORY AND CURRENT ISSUES: Vet contacted clinic stating poor sleep and did not tolerate cyproheptadine due to urological issues. I recommended trialing low dose of zolpidem- must be aware that this medication can cause sedation quickly so he is to take 30mins before bed and should be in bed ideally. ALso to monitor for any confusion or sleepwalking. Can trial 2.5mg po qhs along with the quetiapine. later stated he still cannot obtain restful sleep and zolpidem was increased to 5mgs po qhs (MAX DOSE). He states with zolpidem he has not noticed any benefit so far. He states his mood has been low due to diagnosis of prostate cancer. He states he has to undergo implant surgery and then radiation therapy. He states appetite has been "good," He is watching tv, not much else activity. Kamilah reports experiencing passive suicidal ideation which he states began after prostate cancer diagnosis. He states he "somewhat has hope things will improve." Vet denies active plans or any suicidal intent at this time. He states he has been taking the quetiapine for sleep for years. He states the quetiapine "really helps with sleep". He is obtaining 6-8 hrs of sleep. He denies using the restroom often. He denies experiencing any nightmares. Vet watches tv mainly. He does not like to read. Advised to trial a more challenging activity. admits he is forgetful, he forgets to flower picker items from the store. states he is retired. He denies financial worry at this time. PSYCH ROS: He denies experiencing symptoms consistent with manic episode including 4 or more days of euphoric mood, distractibility, decrease need for sleep, increase in goal oriented behavior and energy,impulsivity He denies experiencing psychotic symptoms. PAST PSYCH HX: SA: OD lorazepam, more than a decade ago. Injected a needle into leg with pesticide, leg turned black, that was before lorazepam. He was , hospitalized [facility]. Med Trials: amitriptyline abilify Bupropion: interfered with sleep citalopram: made him naseous sertraline fluoxetine venlafaxine, escitalopram- weight gain duloxetine, hydroxyzine, lithium, [facility]. lorazepam- self discontinued methylphenidate trazodone- ineffective melatonin- ineffective cyproheptaine- ineffective, urinary retention mirtazapine- 15mgs ineffctive for sleep zolidem- 5mgs not effective SUBSTANCE USE: Alcohol: denies Tobacco: denies Illicit Drugs, or inappropiate drug use: no Caffeine: stays to clear PAST MED HX: Chronic Illnesses/Surgeries: Active Problems Parkinsons disease Depression Tremor Benign prostatic hyperplasia Colonoscopy normal Sleep apnea Moderate recurrent major depression Insomnia (SNOMED CT 952202717) Meir hematuria (SNOMED CT 48014966 Hyperlipidemia (SNOMED CT 11392547) Elevated PSA (SNOMED CT 491623832) Nausea with Vomiting (ICD-9-CM 787. Chronic kidney disease stage 2 (SNO Major Depressive Disorder, Recurren Temporomandibular Joint Syndrome H/O: surgery Allergic rhinitis (SNOMED CT 271118 Erectile dysfunction (SNOMED CT 397 Acute Venous Embolism and Thrombosis Active Outpatient Medications (excluding Supplies): Active Outpatient Medications Status 1) ATORVASTATIN 20MG TAB TAKE ONE-HALF TABLET BY MOUTH ACTIVE AT BEDTIME FOR CHOLESTEROL - DO NOT TAKE WITH GRAPEFRUIT JUICE 2) CYPROHEPTADINE 4MG TAB TAKE ONE TAB LET BY MOUTH AT ACTIVE BEDTIME -(MAY CAUSE DROWSINESS) FOR INSOMNIA 3) DUTASTERIDE 0.5MG CAP *HD* TAKE ONE CAPSULE BY MOUTH ACTIVE ONCE DAILY REPLACES FINASTERIDE FOR PROSTATE (CONSULT APPROVED) 4) QUETIAPINE 300MG TAB TAKE ONE TABLE T BY MOUTH EVERY ACTIVE MORNING FOR MOOD 5) ZOLPIDEM 5MG TAB TAKE ONE-HALF TAB LET BY MOUTH AT ACTIVE BEDTIME - POTENTIAL FOR SLEEPWALKING MAY CAUSE DROWSINESS - DO NOT TAKE & DRIVE FOR INSOMNIA Active Non-VA Medications Status 1) Non-VA ACETAMINOPHEN 325MG TAB 650M G MOUTH THREE ACTIVE TIMES A DAY NEEDED 2) Non-VA CARBIDOPA 25/LEVODOPA 100MG UD TAB 1 TABLET ACTIVE (25/100) MOUTH THREE TIMES DAILY 3) Non-VA GARLIC (OTC) 2 CAPSULES MOUT H ONCE DAILY ACTIVE 4) Non-VA MULTIVITAMIN CAP/TAB 1 CAP/T AB MOUTH ACTIVE 5) Non-VA NON-VA DRUG ASSESSMENT DONE CAP/TAB MOUTH ACTIVE 6) Non-VA OMEGA-3 ACID CAP,ORAL MOUTH ACTIVE 7) Non-VA UNKNOWN HERBAL/DRUG(PutNameI n Comments CAP/TAB ACTIVE QUNOL MOUTH ONCE DAILY 12 Total Medications ALLERGIES: ERYTHROMYCIN, SIMVASTATIN, FINASTERIDE, GABAPENTIN, VENLAFAXINE LABS: [x] N/A [ ] Results pending [ ] Reviewed with [ ] Ordered for next visit BT - Blood Transfusions No data available CH - Chem & Hematology No data available CY - Cytopathology No data available EM - Electron Microscopy No data available JULIETTE - Microbiology No data available SP - Surgical Pathology No data available Vitals: Height:71 in [180.3 cm] (08/29/2019 11:33) Weight:174.7 lb [79.4 kg] (08/29/2019 11:33) B/P:123/75 (10/01/2020 11:54) Pulse: 90 (10/01/2020 11:54) Respiration: 16 (10/01/2020 11:54) Temp: 97.1 F [36.2 C] (10/01/2020 11:54) O2 Sat: PULSE OXIMETRY - NONE FOUND - 1D Pain: 0 (01/01/2021 12:38) FAMILY HISTORY : [id number] in [employer] [place]: stayed in the [place] Grew up: [place], mostly. Parents stayed , one older sister, one younger brother. Dad was an alcoholic. "Gave us the belt", not too often. Wanted to be called "sir" and "he was very critically and made you feel you were not good enough." Not depressed as a teenager, depressed in service. No abuse or neglect. 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 He denies expereincing homicidal ideation intent plan or urge. INSIGHT; fair JUDGEMENT: fair ASSESSMENT: reports worsening of mood due to recent prostate cancer diagnosis. He also reports poor sleep and has not found zolpidem to be effective for insomnia. He has been experiencing passive suicidal ideation after prostate diagnosis. He is hoping treatments will be effective- and has some hope. He denies any active plans or intent at this time. He has had 2 attempts in the past. DIAGNOSIS (DSM-5): Unspecified Depressive Disorder Unspecified ANxiety DIsorder Insomnnia Parkinson's disease PLAN: Supportive therapy and psychoeducation provided regarding psychiatric medications and current psychosocial stressors. * PSYCHOTHERAPY TIME:10 mins 1. Meds: d/c zolpidem 5mgs po qhs trial temazepam 7.5mgs po qhs for insomnia Will continue quetiapine 300mgs po qhs for now contiue benztropine 1mg po BID wellness call in 1 week I discussed risks/benefits/side effects of above treatment plan, including alternative treatments and no treatment, and answered 's questions regarding these. Pt. participated in the discussion and agreed to the treatment plan as above. Additionally, was provided phone numbers to call in case of an emergency after hours, including the National Suicide Hotline and press 1. 2. Medical: continue with PCP care and N eurology 3. RTC in 6 weeks aware of emergency services offered; should mood worsen he can present to walk in clinic; he was also provided with [place] Crisis Line Number. He is aware should suicidal ideation occur he is to call 911 or present to nearest ER for further evaluation. /mauri/ TOMMIE MENDOZA PSYCHIATRIST Signed: 01/01/2021 15:48 TOMMIE MENDOZA [facility] Jan 01, 2021 12:26 PM TELEPHONE ENCOUNTER NOTE: LOCAL TITLE: TELECARE STANDARD TITLE: TELEPHONE ENCOUNTER NOTE DATE OF NOTE: JAN 01, 2021@12:26 ENTRY DATE: JAN 01, 2021@12:26:38 AUTHOR: CAITIE STARK COSIGNER: URGENCY: STATUS: COMPLETED PATIENT NAME: MAYI FARRELL SSN: [id number] FUTURE APPOINTMENTS:01/01/2021 14:30 KIM CHAPARRO TELE PSYCH 8 PATIENT'S HOME PHONE: REASON FOR CALL: Nursing intake for telephone appt with Dr Mendoza at 1430. [place] rates depression 7-8/10. Reports his depression has been increasing relating it to current medical issues. Rates anxiety at 5-6/10. Denies Si and Hi. The [place]'s phone number and address: [address] The 's present location: home The 's emergency contact name and phone number: ERICH D (SPOUSE) [place] has verbally consented to telehealth; alternatives for obtaining care through in-person visit and right of refusal at any time have been explained. agreed to services today. Daily Aspirin (Nurse): Patient does not take daily aspirin. Pain Evaluation (Nurse): PAIN EVALUATION: Clinic Location: Mental Health Patient reports no pain present today. Pain Score: 0 DIAGNOSIS: Nursing intake TIME: [id number] (Patient has been instructed to go to [facility] Emergency Room or to seek care elsewhere. FINANCIAL DISCLAIMER was read to caller ( ) Yes (x) Not Applicable) FINANCIAL DISCLAIMER: "This is not an authorization for VA Payment" and also "Have hospital contact the nearest VA Facility for transfer upon stabilization". /mauri/ CAITIE STARK RN PRIMARY CARE REGISTERED NURSE-KERI Signed: 01/01/2021 12:39 CAITIE STARK [facility]
--- OUTSIDE RECORDS SUMMARY | 2021-02-26 00:30 | XMS REPORT | Encounter Summary ---
Author Author Department [facility] MAYI ruth Organization Department of [facility] Address Unknown Phone Unavailable Care Team Providers Care Floor Covering Layer Name Role Phone JER GARCIA PCP Unavailable [...] Name Patient's Relationship to Policy Baeza AETNA [facility] (WNR) MEDICARE ADVANTAGE [facility](WNR) Jul 18, 2019 00 0003[place] [id number] MAYI ONEAL PATIENT [facility] (WNR) MEDICARE ADVANTAGE [facility] (WNR) Jul 18, 2012 [id number] MAYI ONEAL PATIENT [facility] (WNR) MEDICARE ADVANTAGE MCR (WNR) Jul 18, 2012 [id number] MAYI ONEAL PATIENT [facility] (WNR) MEDICARE ADVANTAGE [facility] (WNR) Jul 18, 2012 [id number] MAYI ONEAL PATIENT MEDICARE (WNR) MEDICARE (M) PART B Jul 18, 2009 PART B [id number] MAYI ONEAL PATIENT MEDICARE (WNR) MEDICARE (M) PART B Jul 18, 2009 PART B [id number] [phone] MAYI ONEAL PATIENT MEDICARE (WNR) MEDICARE (M) PART A Oct 16, 2008 PART A [id number] JMGENE PATIENT MEDICARE (WNR) MEDICARE (M) PART A Oct 16, 2008 PART A [id number] [phone] JMGENE PATIENT MEDICARE PART D (WNR) MEDICARE (M) PART D Jul 18, 2015 PART D [id number] JMGENE PATIENT MEDICARE PART D (WNR) MEDICARE (M) PART D Jul 18, 2015 PART D [id number] JMGENE PATIENT MEDICARE PART D (WNR) MEDICARE (M) PART D Jul 18, 2012 PART D [id number] MAYI ONEAL PATIENT MEDICARE PART D (WNR) MEDICARE (M) PART D Jul 18, 2012 PART D [id number] MAYI ONEAL PATIENT Selected Encounter This section includes the information on record at [place] for the Encounter. Date/Time Encounter Type Encounter Description Reason Provider Source Dec 30, 2020 08:17 AM Outpatient Encounter ADMIN PAT ACTIVTIES ([facility] IHE Encounter Template Text not used by [place] Assessments - Encounter Diagnoses No Data Provided for This Section Plan of Treatment: Future Appointments (+ 6 months) and Future Tests (+/- 45 day s) The Plan of Treatment section includes future care activities for the patient fr om all [place] treatment facilities. This section includes future appointments and fu ture orders which are active, pending or scheduled. Future Appointments This section includes appointments that were scheduled t o occur 6 months from the date of the Encounter, up to a maximum of 20 appointme nts. The data comes from all [place] treatment facilities. Appointment Date/Time Appointment Type Appointment Facili ty Name Jan 01, 2021 02:30 PM AMBULATORY - PS[facility]IATRY [facility] Mar 19, 2021 11:30 AM AMBULATORY - PS[facility]IATRY [facility] Surgical Procedures: All associated to [...] and tobacco- related health factors from the [place] facility where the Encounter took place. Current Smoking Status This section includes the most current smoking, or tobacco -related health factor, from the [place] facility where the Encounter took place. Date/Time Current Smoking Status Comment Facility Jun 18, 2013 01:14 PM V16 TOBACCO USE SCREEN [facility] Tobacco Use History This section includes a history of the smoking, or tobacco -related health factors, that were collected on or before the date of the Encoun ter. The data comes from the [place] facility where the Encounter took place. Date/Time Smoking Status/Tobacco Use Comment [facility] it Jun 18, 2013 01:14 PM [...] Encounter. Date/Time Encounter Note(s) Provider Source Dec 30, 2020 08:17 AM ADMINISTRATIVE NOTE: LOCAL TITLE: ADMINISTRATIVE NOTE STANDARD TITLE: ADMINISTRATIVE NOTE DATE OF NOTE: DEC 30, 2020@08:17 ENTRY DATE: DEC 30, 2020@08:17:50 AUTHOR: SHREYA HAINES EXP COSIGNER: URGENCY: STATUS: COMPLETED Clinical Contact/Call Center COVID 19 SCREEN [id number]_[id number], October 2020 Screen version 7.1 Record the patient's responses to the following questions: (check all that apply, or None at the end) In the last 14 days have had new onset of any of the following symptoms? a. Chills: () Yes () No Comment(s): b. Cough: () Yes () No Comment(s): c. Diarrhea: () Yes () No Comment(s): d. Fatigue: () Yes () No Comment(s): e. Fever: () Yes () No Comment(s): f. Headache: () Yes () No Comment(s): g. Loss of taste or smell: () Yes () No Comment(s): h. Muscle pain (Myalgias): () Yes () No Comment(s): i. Nausea: () Yes () No Comment(s): j. Runny nose (Rhinorrhea): () Yes () No Comment(s): k. Shortness of breath (Dyspnea): () Yes () No Comment(s): l. Sore throat: () Yes () No Comment(s): m. Vomiting: () Yes () No Comment(s): No Symptoms (x) Within the last 14 days, have you had: Close exposure (within 6 feet for than 15 minutes) to someone with a febrile/respiratory illness () Yes Comment(s): Close exposure (within 6 feet for than 15 minutes) to someone with known or suspected case of COVID-19 () Yes Comment(s): No known exposure (x) Any symptom or exposure equal to positive screen: Patient has a POSITIVE symptom or exposure and requires further evaluation Nurse/Provider/Other notified () Yes Comments(s): Screen is negative (x) Patient is waiting on COVID-19 test results: () Yes (x) No Comment(s): Patient reports prior COVID-19 Diagnosis: () Yes (x) No Comment(s): /mauri/ SHREYA [facility] Signed: 12/30/2020 08:18 SHREYA HAINES [facility]
--- OUTSIDE RECORDS SUMMARY | 2021-02-26 00:31 | XMS REPORT | Encounter Summary ---
Author Author Department [facility] MAYI ruth Organization Department of [facility] Address Unknown Phone Unavailable Care Team Providers Care Recovery Collector Name Role Phone JER GARCIA PCP Unavailable [...] Name Patient's Relationship to Policy Baeza AETNA [facility] (WNR) MEDICARE ADVANTAGE [facility](WNR) Jul 18, 2019 00 [place] [id number] MAYI ONEAL PATIENT [facility] (WNR) MEDICARE ADVANTAGE [facility] (WNR) Jul 18, 2012 [id number] MYAI ONEAL PATIENT [facility] (WNR) MEDICARE ADVANTAGE MCR (WNR) Jul 18, 2012 [id number] MAYI ONEAL PATIENT [facility] (WNR) MEDICARE ADVANTAGE [facility] (WNR) Jul 18, 2012 [id number] MAYI ONEAL PATIENT MEDICARE (WNR) MEDICARE (M) PART B Jul 18, 2009 PART B [id number] MAYI ONEAL PATIENT MEDICARE (WNR) MEDICARE (M) PART B Jul 18, 2009 PART B [id number] [phone] MAYI ONEAL PATIENT MEDICARE (WNR) MEDICARE (M) PART A Oct 16, 2008 PART A [id number] JMGENE PATIENT MEDICARE (WNR) MEDICARE (M) PART A Oct 16, 2008 PART A [id number] [phone] JMGENE PATIENT MEDICARE PART D (WNR) MEDICARE (M) PART D Jul 18, 2015 PART D [id number] JMGENE PATIENT MEDICARE PART D (WNR) MEDICARE (M) PART D Jul 18, 2015 PART D [id number] JMGENE PATIENT MEDICARE PART D (WNR) MEDICARE (M) PART D Jul 18, 2012 PART D [id number] MAYI ONEAL PATIENT MEDICARE PART D (WNR) MEDICARE (M) PART D Jul 18, 2012 PART D [id number] MAYI ONEAL PATIENT Selected Encounter This section includes the information on record at [place] for the Encounter. Date/Time Encounter Type Encounter Description Reason Provider Source Dec 18, 2020 08:52 AM Outpatient Encounter [facility] IHE Encounter Template Text not used by [place] Assessments - Encounter Diagnoses No Data Provided for This Section Plan of Treatment: Future Appointments (+ 6 months) and Future Tests (+/- 45 day s) The Plan of Treatment section includes future care activities for the patient fr om all [place] treatment facilities. This section includes future appointments and fu ture orders which are active, pending or scheduled. Future Appointments This section includes appointments that were scheduled t o occur 6 months from the date of the Encounter, up to a maximum of 20 appointme nts. The data comes from all [place] treatment facilities. Appointment Date/Time Appointment Type Appointment Facili ty Name Dec 29, 2020 10:00 AM AMBULATORY - NONE [facility] Jan 01, 2021 02:30 PM [facility] [place] [facility] Mar 19, 2021 11:30 AM [facility] Surgical Procedures: All associated to [...] and tobacco- related health factors from the [place] facility where the Encounter took place. Current Smoking Status This section includes the most current smoking, or tobacco -related health factor, from the [place] facility where the Encounter took place. Date/Time Current Smoking Status Comment Facility Jun 18, 2013 01:14 PM V16 TOBACCO USE SCREEN [facility] Tobacco Use History This section includes a history of the smoking, or tobacco -related health factors, that were collected on or before the date of the Encoun ter. The data comes from the [place] facility where the Encounter took place. Date/Time Smoking Status/Tobacco Use Comment [facility] it Jun 18, 2013 01:14 [...] Encounter. Date/Time Encounter Note(s) Provider Source Dec 18, 2020 08:53 AM ADMINISTRATIVE NOTE: LOCAL TITLE: ADMINISTRATIVE NOTE STANDARD TITLE: ADMINISTRATIVE NOTE DATE OF NOTE: DEC 18, 2020@08:53 ENTRY DATE: DEC 18, 2020@08:53:16 AUTHOR: THERESA HIGHTOWER EXP COSIGNER: URGENCY: STATUS: COMPLETED ADMINISTRATIVE NOTE Has ADDENDA calling into facility today to request guidance in relation to taking ambien. states that he feels he is taking too little as he is having to wait for effects to take longer than expected. /mauri/ THERESA [facility]AN [facility] Signed: 12/18/2020 08:54 Receipt Acknowledged By: 12/23/2020 07:52 /mauri/ CARLEE ALCOCER RN 12/23/2020 15:49 /mauri/ SUDEEP GRIGGS PSYCHIATRIST 12/23/2020 ADDENDUM STATUS: COMPLETED Will redirect to Caitie DELGADO/ [facility]. /es/ CARLEE RANDALL RN Signed: 12/23/2020 07:53 Receipt Acknowledged By: * AWAITING SIGNATURE * CAMILLA SOLOMON 12/23/2020 08:39 /es/ CAITIE JORDAN RN PRIMARY CARE REGISTERED NURSE-KERI 12/23/2020 ADDENDUM STATUS: COMPLETED spoke with who reports that he is taking the Ambien when he goes to bed at night, states he also has to take Seroquel to be able to sleep and is currently getting approx., 6 hours a night total. Reviewed with that he needs to take sleeping medications about 30 min prior to bedtime. He is requesting something different for sleep states " this is not strong enough". Let know that information would be sent to Dr Mendoza to review. /es/ CAITIE STARK RN PRIMARY CARE REGISTERED NURSE-KERI Signed: 12/23/2020 08:39 Receipt Acknowledged By: 12/23/2020 15:50 /es/ SUDEEP GRIGGS PSYCHIATRIST 12/23/2020 ADDENDUM STATUS: COMPLETED The highest dose on the zolpidem we can use is 5mgs at bedtime. He can try to take 5mgs 30 mins before his bedtime. /es/ SUDEEP MENDOZA PSYCHIATRIST Signed: 12/23/2020 15:49 THERESA HIGHTOWER [facility]
--- OUTSIDE RECORDS SUMMARY | 2021-02-26 00:31 | XMS REPORT | Encounter Summary ---
Author Author Department [facility] MAYI ruth Organization Department of [facility] Address Unknown Phone Unavailable Care Team Providers Care Certified Medical Transcriptionist Name Role Phone JER GARCIA PCP Unavailable [...] Name Patient's Relationship to Policy Baeza AETNA [facility] (WNR) MEDICARE ADVANTAGE [facility](WNR) Jul 18, 2019 00 0003[place] [id number] MAYI ONEAL PATIENT [facility] (WNR) MEDICARE ADVANTAGE [facility] (WNR) Jul 18, 2012 [id number] MAYI ONEAL PATIENT [facility] (WNR) MEDICARE ADVANTAGE [facility]CR (WNR) Jul 18, 2012 [id number] MAYI ONEAL PATIENT [facility] (WNR) MEDICARE ADVANTAGE [facility] (WNR) Jul 18, 2012 [id number] MAYI ONEAL PATIENT MEDICARE (WNR) MEDICARE (M) PART B Jul 18, 2009 PART B [id number] MAYI ONEAL PATIENT MEDICARE (WNR) MEDICARE (M) PART B Jul 18, 2009 PART B [id number] [phone] MAYI ONEAL PATIENT MEDICARE (WNR) MEDICARE (M) PART A Oct 16, 2008 PART A [id number] JMGENE PATIENT MEDICARE (WNR) MEDICARE (M) PART A Oct 16, 2008 PART A [id number] [phone] JMGENE PATIENT MEDICARE PART D (WNR) MEDICARE (M) PART D Jul 18, 2015 PART D [id number] JMGENE PATIENT MEDICARE PART D (WNR) MEDICARE (M) PART D Jul 18, 2015 PART D [id number] JMGENE PATIENT MEDICARE PART D (WNR) MEDICARE (M) PART D Jul 18, 2012 PART D [id number] MAYI ONEAL PATIENT MEDICARE PART D (WNR) MEDICARE (M) PART D Jul 18, 2012 PART D [id number] MAYI ONEAL PATIENT Selected Encounter This section includes the information on record at [place] for the Encounter. Date/Time Encounter Type Encounter Description Reason Provider Source Dec 23, 2020 05:03 PM Outpatient Encounter COMMUNITY CARE CONSULT CARLY AVILA E Encounter Template Text not used by [place] Assessments - Encounter Diagnoses No Data Provided for This Section Plan of Treatment: Future Appointments (+ 6 months) and Future Tests (+/- 45 day s) The Plan of Treatment section includes future care activities for the patient fr om all [place] treatment facilities. This section includes future appointments and fu ture orders which are active, pending or scheduled. Future Appointments This section includes appointments that were scheduled t o occur 6 months from the date of the Encounter, up to a maximum of 20 appointme nts. The data comes from all [place] treatment facilities. Appointment Date/Time Appointment Type Appointment Facili ty Name Dec 29, 2020 10:00 AM [facility]ORY [facility]ONE [facility] Jan 01, 2021 02:30 PM AMBULATORY - PS[facility]IATRY [facility] Mar 19, 2021 11:30 AM AMBULATORY - PS[facility]CHIATRY [facility] Surgical Procedures: All associated to [...] and tobacco- related health factors from the [place] facility where the Encounter took place. Current Smoking Status This section includes the most current smoking, or tobacco -related health factor, from the [place] facility where the Encounter took place. Date/Time Current Smoking Status Comment Facility Jun 18, 2013 01:14 PM V16 TOBACCO USE SCREEN [facility] Tobacco Use History This section includes a history of the smoking, or tobacco -related health factors, that were collected on or before the date of the Encoun ter. The data comes from the [place] facility where the Encounter took place. Date/Time Smoking Status/Tobacco Use Comment Facil it Jun 18, 2013 01:14 PM V16 [...] Encounter Note(s) Provider Source Dec 23, 2020 05:03 PM NONVA NOTE: LOCAL TITLE: COMMUNITY CARE-COORDINATION PLAN STANDARD TITLE: NONVA NOTE DATE OF NOTE: DEC 23, 2020@17:03 ENTRY DATE: DEC 23, 2020@17:03:27 AUTHOR: CARLY AVILA EXP COSIGNER: URGENCY: STATUS: COMPLETED Community Care Coordination Plan Community Care Consult: Radiation Therapy Chief Complaint: Prostate Cancer Patient Admitted: No Level of Care Coordination Complex/Chronic This information was obtained from: Chart Review Facility Community Care Office Contact Care Coordination Point of Contact: Carly Avila RN Phone Number: [phone]. [phone] does not have a caregiver. Services: Moderate Care Coordination Services Case Management, if appropriate Direct communications with interdisciplinary team Plan: Proceed with scheduling, see consult for details. /mauri/ CARLY AVILA RN OCC RN Java Grails Developer Signed: 12/23/2020 17:04 CARLY AVILA [facility]
--- OUTSIDE RECORDS SUMMARY | 2021-02-26 00:31 | XMS REPORT | Encounter Summary ---
Author Author Department [facility] MAYI ruth Organization [facility] Address Unknown Phone Unavailable Care Team Providers Care Pool Hand Name Role Phone JER GARCIA PCP [...] Relationship to Policy Baeza AETNA [facility] (WNR) MEDICARE ADVANTAGE [facility](WNR) Jul 18, 2019 00 [place] [id number] MAYI ONEAL PATIENT [facility]ENTRY MCR (WNR) MEDICARE ADVANTAGE [facility] (WNR) Jul 18, 2012 [id number] MAYI ONEAL PATIENT [facility] (WNR) MEDICARE ADVANTAGE MCR (WNR) Jul 18, 2012 [id number] MAYI ONEAL PATIENT [facility] (WNR) MEDICARE ADVANTAGE [facility] (WNR) Jul 18, 2012 [id number] MAYI ONEAL PATIENT MEDICARE (WNR) MEDICARE (M) PART B Jul 18, 2009 PART B [id number] MAYI ONEAL PATIENT MEDICARE (WNR) MEDICARE (M) PART B Jul 18, 2009 PART B [id number] [phone] MAYI ONEAL PATIENT MEDICARE (WNR) MEDICARE (M) PART A Oct 16, 2008 PART A [id number] MAYI ONEAL PATIENT MEDICARE (WNR) MEDICARE (M) PART A Oct 16, 2008 PART A [id number] [phone] JMGENE PATIENT MEDICARE PART D (WNR) MEDICARE (M) PART D Jul 18, 2015 PART D [id number] JMGENE PATIENT MEDICARE PART D (WNR) MEDICARE (M) PART D Jul 18, 2015 PART D [id number] JMGENE PATIENT MEDICARE PART D (WNR) MEDICARE (M) PART D Jul 18, 2012 PART D [id number] MAYI ONEAL PATIENT MEDICARE PART D (WNR) MEDICARE (M) PART D Jul 18, 2012 PART D [id number] MAYI ONEAL PATIENT Selected Encounter This section includes the information on record at [place] for the Encounter. Date/Time Encounter Type Encounter Description Reason Provider Source Dec 17, 2020 09:54 AM Outpatient Encounter COMMUNITY CARE CONSULT IHE Encounter Template Text not used by [place] Assessments - Encounter Diagnoses No Data Provided for This Section Plan of Treatment: Future Appointments (+ 6 months) and Future Tests (+/- 45 day s) The Plan of Treatment section includes future care activities for the patient fr om all [place] treatment facilities. This section includes future appointments and fu ture orders which are active, pending or scheduled. Future Appointments This section includes appointments that were scheduled t o occur 6 months from the date of the Encounter, up to a maximum of 20 appointme nts. The data comes from all [place] treatment facilities. Appointment Date/Time Appointment Type Appointment Facili ty Name Dec 29, 2020 10:00 AM AMBULATORY - NONE [facility] Jan 01, 2021 02:30 PM [facility] [place] [facility] Mar 19, 2021 11:30 AM AMBULATORY - PS[facility]CHIATRY [facility] Surgical Procedures: All associated to [...] and tobacco- related health factors from the [place] facility where the Encounter took place. Current Smoking Status This section includes the most current smoking, or tobacco -related health factor, from the [place] facility where the Encounter took place. Date/Time Current Smoking Status Comment Facility Jun 18, 2013 01:14 PM V16 TOBACCO USE SCREEN [facility] Tobacco Use History This section includes a history of the smoking, or tobacco -related health factors, that were collected on or before the date of the Encoun ter. The data comes from the [place] facility where the Encounter took place. Date/Time [...] Encounter. Date/Time Encounter Note(s) Provider Source Dec 17, 2020 09:54 AM NONVA CONSULT: LOCAL TITLE: COMMUNITY CARE-CONSULT RESULT NOTE STANDARD TITLE: NONVA CONSULT DATE OF NOTE: DEC 17, 2020@09:54 ENTRY DATE: DEC 25, 2020@09:55:26 AUTHOR: TL REAGAN EXP COSIGNER: URGENCY: STATUS: COMPLETED VistA Imaging - Scanned Document [facility] 12/17/2020 VISIT /es/ TL REAGAN Supervisor Calibration Signed: 12/25/2020 10:06 TL REAGAN [facility]
--- OUTSIDE RECORDS SUMMARY | 2021-02-26 00:32 | XMS REPORT | Encounter Summary ---
Author Author Department [facility] MAYI ruth Organization Department of [facility] Address Unknown Phone Unavailable Care Team Providers Care Patient Transport Officer Name Role Phone JER GARCIA PCP Unavailable [...] Name Patient's Relationship to Policy Baeza AETNA [facility] (WNR) MEDICARE ADVANTAGE [facility](WNR) Jul 18, 2019 00 0003-[place] [id number] MAYI ONEAL PATIENT [facility] M[facility] (WNR) MEDICARE ADVANTAGE [facility] (WNR) Jul 18, 2012 [id number] MAYI ONEAL PATIENT [facility] (WNR) MEDICARE ADVANTAGE MCR (WNR) Jul 18, 2012 [id number] MAYI ONEAL PATIENT [facility] (WNR) MEDICARE ADVANTAGE [facility] (WNR) Jul 18, 2012 [id number] MAYI ONEAL PATIENT MEDICARE (WNR) MEDICARE (M) PART B Jul 18, 2009 PART B [id number] MAYI ONEAL PATIENT MEDICARE (WNR) MEDICARE (M) PART B Jul 18, 2009 PART B [id number] [phone] MAYI ONEAL PATIENT MEDICARE (WNR) MEDICARE (M) PART A Oct 16, 2008 PART A [id number] JMGENE PATIENT MEDICARE (WNR) MEDICARE (M) PART A Oct 16, 2008 PART A [id number] [phone] JMGENE PATIENT MEDICARE PART D (WNR) MEDICARE (M) PART D Jul 18, 2015 PART D [id number] JMGENE PATIENT MEDICARE PART D (WNR) MEDICARE (M) PART D Jul 18, 2015 PART D [id number] JMGENE PATIENT MEDICARE PART D (WNR) MEDICARE (M) PART D Jul 18, 2012 PART D [id number] MAYI ONEAL PATIENT MEDICARE PART D (WNR) MEDICARE (M) PART D Jul 18, 2012 PART D [id number] MAYI ONEAL PATIENT Selected Encounter This section includes the information on record at [place] for the Encounter. Date/Time Encounter Type Encounter Description Reason Provider Source November 28, 2020 12:00 AM Outpatient Encounter COMMUNITY CARE [...] 2020 10:00 AM AMBULATORY - NONE [facility] Jan 01, 2021 02:30 PM [facility] Mar 19, 2021 11:30 AM AMBULAT[facility] - [facility] Surgical Procedures: All [...] the Encounter. Date/Time Encounter Note(s) Provider Source November 28, 2020 12:00 AM NONVA NOTE: LOCAL TITLE: PSYCHIATRIC HOSPITAL CARE-INPATIENT STANDARD TITLE: NONVA NOTE DATE OF NOTE: NOVEMBER 28, 2020 ENTRY DATE: JAN 20, 2021@10:48 AUTHOR: OMAR JOSHI EXP COSIGNER: URGENCY: STATUS: COMPLETED VistA Imaging - Scanned Document [facility] 11/28/20 /mauri/ OMAR JOSHI SNACK FOODS MIXER OPERATOR Signed: 01/20/2021 10:48 OMAR JOSHI [facility]
--- OUTSIDE RECORDS SUMMARY | 2021-02-26 00:32 | XMS REPORT | Encounter Summary ---
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 Name Role Phone JER GARCIA PCP Unavailable [...] AETNA [facility] (WNR) MEDICARE ADVANTAGE [facility](R) Jul 18, 2019 00 0003-[place] [id number] MAYI ONEAL PATIENT [facility] (WNR) MEDICARE ADVANTAGE [facility] (WNR) Jul 18, 2012 [id number] MAYI ONEAL PATIENT [facility] (WNR) MEDICARE ADVANTAGE [facility] (WNR) Jul 18, 2012 [id number] [facility] (WNR) MEDIC[facility] ADVANTAGE [facility] (WNR) Jul 18, 2012 [id number] MAYI ONEAL PATIENT MEDICARE (WNR) MEDICARE (M) PART B Jul 18, 2009 PART B [id number] MAYI ONEAL PATIENT MEDICARE (WNR) MEDICARE (M) PART B Jul 18, 2009 PART B [id number] [phone] ONEAL,GENE PATIENT MEDICARE (WNR) MEDICARE (M) PART A Oct 16, 2008 PART A [id number] JMGENE PATIENT MEDICARE (WNR) MEDICARE (M) PART A Oct 16, 2008 PART A [id number] [phone] JMGENE PATIENT MEDICARE PART D (WNR) MEDICARE (M) PART D Jul 18, 2015 PART D [id number] JMGENE PATIENT MEDICARE PART D (WNR) MEDICARE (M) PART D Jul 18, 2015 PART D [id number] JMGENE PATIENT MEDICARE PART D (WNR) MEDICARE (M) PART D Jul 18, 2012 PART D [id number] MAIY ONEAL PATIENT MEDICARE PART D (WNR) MEDICARE (M) PART D Jul 18, 2012 PART D [id number] MAYI ONEAL PATIENT Selected Encounter This section includes the information on record at [place] for the Encounter. Date/Time Encounter Type Encounter Description Reason Provider Source December 04, 2020 09:14 AM HC PRO PHONE CALL 5-10 MIN TELEPHONE MH ICD-10-CM G47.00 Insomnia, unspecified with Provider Comments: Insomnia ([facility] [id number]) CAMILLA SOLOMON Reny Encounter Template Text not used by [place] Assessments - Encounter Diagnoses This section includes the primary and secondary diag noses documented for the Encounter. Date/Time Primary/Secondary Diagnosis Diagnosis Name Provider Source December 04, 2020 09:14 AM PRIMARY Insomnia, unspecified [facility] Plan of Treatment: Future [...] 10:00 AM AMBULATORY - NONE R[facility]AN [facility] Jan 01, 2021 02:30 PM AMBULATORY - PSYCHIATRY [facility] Mar 19, 2021 11:30 AM AMBULATORY - PSYCHIATRY [facility] Surgical Procedures: All associated to the encounter This section includes all Surgical Procedures and Surgical Procedure Notes assoc iated to the Encounter. Surgical Procedures This section includes all Surgical Procedures associated to the Encounter. Surgical Procedure Date/Time Procedure Procedure Type Procedure Qualifiers Provider Source December 04, 2020 09:14 AM PHONE CALL BY HC PROF 5-10 MIN HC PRO PHON E CALL 5-10 MIN CAMILLA SOLOMON [facility] Surgical Notes There are no notes associated with this procedure. Lab Results: +/- 30 days of the [...] 02, 2020 02:00 PM VA-TOBACCO NEVER USED [facility] Tobacco Use History This section includes a history of the smoking, or tobacco -related health factors, that were collected on or before the date of the Encoun ter. The data comes from the [place] facility where the Encounter took place. Date/Time Smoking Status/Tobacco Use Comment Facil ity Oct 14, 2018 01:47 PM V16 TOBACCO USE SCREEN [facility] Oct 14, 2018 01:47 PM [facility] Oct 14, 2018 01:47 PM AR-TOBACCO QUIT 15 YRS OR MORE [facility] Advance Directives: All historical and current No Data Provided for This Section Radiology Reports: +/- 30 days of the encounter No Data Provided for This Section Pathology Reports: +/- 30 days of the encounter No Data Provided for This Section Encounter Notes: All associated encounter notes This section contains the clinical notes associated to the Encounter. Date/Time Encounter Note(s) Provider Source December 05, 2020 09:41 AM TELEPHONE ENCOUNTER NOTE: LOCAL TITLE: TELECARE STANDARD TITLE: TELEPHONE ENCOUNTER NOTE DATE OF NOTE: DECEMBER 05, 2020@09:41 ENTRY DATE: DECEMBER 05, 2020@09:41:36 AUTHOR: CAMILLA SOLOMON COSIGNER: URGENCY: STATUS: COMPLETED TELECARE Has ADDENDA PATIENT NAME: MAYI ONEAL SSN: [id number] FUTURE APPOINTMENTS: No future appointments PATIENT'S HOME PHONE: REASON FOR CALL:call to [facility] to relay Dr. Mendoza's direction FOLLOW UP: "We can trial a very low dose of zolpidem which is Ambien- must be aware that this medication can cause sedation quickly so he is to take 30mins before bed and should be in bed i deally. ALso to monitor for any confusion or sleepwalking. Can trial 2.5mg po qhs along with the quetiapine if he agrees. He is not to drink alcohol when taking ambien. /mauri/ SUDEEP MENDOZA PSYCHIATRIST Signed: 12/04/2020 16:32" DIAGNOSIS: TIME: (Patient has been instructed to go to [facility] Emergency Room or to seek care elsewhere. FINANCIAL DISCLAIMER was read to caller ( ) Yes ( ) Not Applicable) FINANCIAL DISCLAIMER: "This is not an authorization for VA Payment" and also "Have hospital contact the nearest [place] Facility for transfer upon stabilization". /mauri/ CAMILLA SOLOMON RN PRIMARY CARE REGISTERED NURSE-KERI Signed: 12/05/2020 09:43 12/05/2020 ADDENDUM STATUS: COMPLETED Instructed the of Dr. Mendoza's note and direction and he reports that he wants to trial the Ambien and stated he would not drink alcohol while taking the med. Instructed the [facility] that I will notify Dr. Mendoza of his choice and it will probably be Tuesday03/10/2021 before we can get an order as Dr. Mendoza is not in today. [facility] voiced understanding and is agreeable with the plan. /karey SOLOMON RN PRIMARY CARE REGISTERED NURSE-KERI Signed: 12/05/2020 10:10 Receipt Acknowledged By: * AWAITING SIGNATURE * SUDEEP MENDOZA 12/08/2020 12:25 /es/ ELEN HARPER ADVANCED PRACTICE REGISTERED NURSE, [place] [facility] 12/08/2020 ADDENDUM STATUS: COMPLETED Will defer to Dr. Mendoza when she returns tomorrow. /karye DAVIS ADVANCED PRACTICE REGISTERED NURSE, [place] [facility] Signed: 12/08/2020 12:[address] [facility] December 04, 2020 09:15 AM TELEPHONE ENCOUNTER NOTE: LOCAL TITLE: TELECARE STANDARD TITLE: TELEPHONE ENCOUNTER NOTE DATE OF NOTE: DECEMBER 04, 2020@09:15 ENTRY DATE: DECEMBER 04, 2020@09:15:07 AUTHOR: CAMILLA SOLOMON EXP COSIGNER: URGENCY: STATUS: COMPLETED TELECARE Has ADDENDA PATIENT NAME: MAYI ONEAL SSN: [id number] FUTURE APPOINTMENTS: No future appointments PATIENT'S HOME PHONE: REASON FOR CALL:"antihistamine not working for sleep, makes me dried out and have a headache." FOLLOW UP: reports that he has been taking the Cryoheptadine for insomnia, but "it is not working." King stated he does not nap during the day and has tried the sleep hygiene methods of trying to calm before sleep time, but he doesn't "get sleepy at all." also reports that he was "told yesterday that I have Prostate Cancer and that is another worry I have right now." stated his "depression is a little higher, but insomnia is "really bothering me." Denies HI/SI. reports that his Urologist "Dr. Devine is planning to do some CT scans on December 17, 2020 to see if the cancer has spread." Instructed the King that I will notify Dr. Mendoza of his above c/o and concerns and await her direction. King voiced understanding and is agreeable with the plan. DIAGNOSIS:telecare TIME: (Patient has been instructed to go to [facility] Emergency Room or to seek care elsewhere. FINANCIAL DISCLAIMER was read to caller ( ) Yes ( ) Not Applicable) FINANCIAL DISCLAIMER: "This is not an authorization for VA Payment" and also "Have hospital contact the nearest [place] Facility for transfer upon stabilization". /es/ CAMILLA SOLOMON, PICKLING GRADER REGISTERED NURSE-KERI Signed: 12/04/2020 09:21 Receipt Acknowledged By: 12/09/2020 09:40 /karey GRIGGS PSYCHIATRIST 12/04/2020 ADDENDUM STATUS: COMPLETED We can trial a very low dose of zolpidem which is Ambien- King must be aware that this medication can cause sedation quickly so he is to take 30mins before bed and should be in bed ideally. ALso to monitor for any confusion or sleepwalking. Can trial 2.5mg po qhs along with the quetiapine if he agrees. He is not to drink alcohol when taking ambien. /mauri/ SUDEEP MENDOZA PSYCHIATRIST Signed: 12/04/2020 16:32 12/09/2020 ADDENDUM STATUS: COMPLETED placed order for mail out /karey MENDOZA PSYCHIATRIST Signed: 12/09/2020 09:[address] [facility]
--- OUTSIDE RECORDS SUMMARY | 2021-02-26 00:32 | XMS REPORT | Encounter Summary ---
Author Author Department [facility] MAYI ruth Organization Department of [facility] Address Unknown Phone Unavailable Care Team Providers Care Air Traffic Control Specialist Center Name Role Phone JER GARCIA PCP Unavailable [...] Name Patient's Relationship to Policy Baeza AETNA [facility] (WNR) MEDICARE ADVANTAGE [facility](WNR) Jul 18, 2019 00 0003[place] [id number] MAYI ONEAL PATIENT [facility] (WNR) MEDICARE ADVANTAGE [facility] (WNR) Jul 18, 2012 [id number] MAYI ONEAL PATIENT [facility] (WNR) MEDICARE ADVANTAGE [facility] (WNR) Jul 18, 2012 [id number] MAYI ONEAL PATIENT [facility] (WNR) MEDICARE ADVANTAGE [facility] (WNR) Jul 18, 2012 [id number] MAYI ONEAL PATIENT MEDICARE (WNR) MEDICARE (M) PART B Jul 18, 2009 PART B [id number] [phone] MAYI ONEAL PATIENT MEDICARE (WNR) MEDICARE (M) PART B Jul 18, 2009 PART B [id number] MAYI ONEAL PATIENT MEDICARE (WNR) MEDICARE (M) PART A Oct 16, 2008 PART A [id number] [phone] MAYI ONEAL PATIENT MEDICARE (WNR) MEDICARE (M) PART A Oct 16, 2008 PART A [id number] JMGENE PATIENT MEDICARE PART D (WNR) MEDICARE (M) PART D Jul 18, 2015 PART D [id number] JMGENE PATIENT MEDICARE PART D (WNR) MEDICARE (M) PART D Jul 18, 2015 PART D [id number] JMGENE PATIENT MEDICARE PART D (WNR) MEDICARE (M) PART D Jul 18, 2012 PART D [id number] MAYI ONEAL PATIENT MEDICARE PART D (WNR) MEDICARE (M) PART D Jul 18, 2012 PART D [id number] MAYI ONEAL PATIENT Selected Encounter This section includes the information on record at [place] for the Encounter. Date/Time Encounter Type Encounter Description Reason Provider Source December 03, 2020 12:00 AM Outpatient Encounter COMMUNITY CARE CONSULT IHE Encounter Template Text not used by [place] Assessments - Encounter Diagnoses No Data Provided for This Section Plan of Treatment: Future Appointments (+ 6 months) and Future Tests (+/- 45 day s) The Plan of Treatment section includes future care activities for the patient fr om all [place] treatment facilities. This section includes future appointments and fu ture orders which are active, pending or scheduled. Future Appointments This section includes appointments that were scheduled t o occur 6 months from the date of the Encounter, up to a maximum of 20 appointme nts. The data comes from all [place] treatment facilities. Appointment Date/Time Appointment Type Appointment Facili ty Name Dec 29, 2020 10:00 AM AMBULATORY - NONE [facility] Jan 01, 2021 02:30 PM [facility] Mar 19, 2021 11:30 AM AMBULATORY - PSYCHIATRY [facility] Surgical Procedures: All associated to [...] and tobacco- related health factors from the [place] facility where the Encounter took place. Current Smoking Status This section includes the most current smoking, or tobacco -related health factor, from the [place] facility where the Encounter took place. Date/Time Current Smoking Status Comment Facility Jun 18, 2013 01:14 PM V16 TOBACCO USE SCREEN [facility] Tobacco Use History This section includes a history of the smoking, or tobacco -related health factors, that were collected on or before the date of the Encoun ter. The data comes from the [place] facility where the Encounter took place. Date/Time Smoking Status/Tobacco Use Comment [facility] ity Jun 18, 2013 01:14 PM V16 [...] Encounter. Date/Time Encounter Note(s) Provider Source December 03, 2020 12:00 AM NONVA CONSULT: LOCAL TITLE: COMMUNITY CARE-CONSULT RESULT NOTE STANDARD TITLE: NONVA CONSULT DATE OF NOTE: DECEMBER 03, 2020 ENTRY DATE: DECEMBER 07, 2020@21:39:37 AUTHOR: JESUS STUBBS EXP COSIGNER: URGENCY: STATUS: COMPLETED VistA Imaging - Scanned Document BORJAS 12.02.20 12.03.20 VISIT /es/ JESUS STUBBS HEALTH INFORMATION MGT SERVICE Signed: 12/07/2020 21:39 JESUS STUBBS [facility]
--- OUTSIDE RECORDS SUMMARY | 2021-02-26 00:32 | XMS REPORT | Encounter Summary ---
Author Author Department [facility] MAYI ruth Organization Department of [facility] Address Unknown Phone Unavailable Care Team Providers Care Balloon Dipper Name Role Phone JER GARCIA PCP Unavailable [...] ID Insurance Provider's Telephone N umber Policy Abeza's Name Patient's Relationship to Policy Baeza AETNA [facility] (WNR) MEDICARE ADVANTAGE [facility](WNR) Jul 18, 2019 00 [place] [id number] MAYI ONEAL PATIENT [facility] (WNR) MEDICARE ADVANTAGE [facility] (WNR) Jul 18, 2012 [id number] MAYI ONEAL PATIENT [facility] (WNR) MEDICARE ADVANTAGE [facility] (WNR) Jul 18, 2012 [id number] MAYI ONEAL PATIENT [facility] (WNR) MEDICARE ADVANTAGE [facility] (WNR) Jul 18, 2012 [id number] MAYI ONEAL PATIENT MEDICARE (WNR) MEDICARE (M) PART B Jul 18, 2009 PART B [id number] MAYI ONEAL PATIENT MEDICARE (WNR) MEDICARE (M) PART B Jul 18, 2009 PART B [id number] [phone] MAYI ONEAL PATIENT MEDICARE (WNR) MEDICARE (M) PART A Oct 16, 2008 PART A [id number] MAYI ONEAL PATIENT MEDICARE (WNR) MEDICARE (M) PART A Oct 16, 2008 PART A [id number] [phone] JMGENE PATIENT MEDICARE PART D (WNR) MEDICARE (M) PART D Jul 18, 2015 PART D [id number] JMGENE PATIENT MEDICARE PART D (WNR) MEDICARE (M) PART D Jul 18, 2015 PART D [id number] JMGENE PATIENT MEDICARE PART D (WNR) MEDICARE (M) PART D Jul 18, 2012 PART D [id number] MAYI ONEAL PATIENT MEDICARE PART D (WNR) MEDICARE (M) PART D Jul 18, 2012 PART D [id number] MAYI ONEAL PATIENT Selected Encounter This section includes the information on record at OR for the Encounter. Date/Time Encounter Type Encounter Description Reason Provider Source Dec 17, 2020 12:00 AM Outpatient Encounter COMMUNITY CARE [...] 2020 10:00 AM AMBULATORY - NONE [facility] Jan 01, 2021 02:30 PM [facility] Mar 19, 2021 11:30 AM AMBULATORY - PSYCHIATRY [facility] Surgical Procedures: All associated [...] took place. Date/Time Smoking Status/Tobacco Use Comment [facility] ity Jun 18, 2013 01:14 PM V16 [...] Encounter Note(s) Provider Source Dec 17, 2020 12:00 AM NONVA CONSULT: LOCAL TITLE: COMMUNITY CARE-CONSULT RESULT NOTE STANDARD TITLE: NONVA CONSULT DATE OF NOTE: DEC 17, 2020 ENTRY DATE: JAN 30, 2021@11:16:24 AUTHOR: JESUS STUBBS EXP COSIGNER: URGENCY: STATUS: COMPLETED VistA Imaging - Scanned Document BORJAS 12.17.20 VISIT /es/ JESUS STUBBS HEALTH INFORMATION MGT SERVICE Signed: 01/30/2021 11:16 JESUS STUBBS [facility]
--- OUTSIDE RECORDS SUMMARY | 2021-02-26 00:33 | XMS REPORT | Encounter Summary ---
Author Author Department [facility] MAIY ruth Organization Department of [facility] Address Unknown Phone Unavailable Care Team Providers Care Magnet Maker Name Role Phone JER GARCIA PCP Unavailable [...] Name Patient's Relationship to Policy Baeza AETNA [facility] (WNR) MEDICARE ADVANTAGE [facility](WNR) Jul 18, 2019 00 0003[place] [id number] MAYI ONEAL PATIENT [facility] (WNR) MEDICARE ADVANTAGE [facility] (WNR) Jul 18, 2012 [id number] MAYI ONEAL PATIENT [facility] (WNR) MEDICARE ADVANTAGE [facility] (WNR) Jul 18, 2012 [id number] MAYI ONEAL PATIENT [facility] (WNR) MEDICARE ADVANTAGE [facility] (WNR) Jul 18, 2012 [id number] MAYI ONEAL PATIENT MEDICARE (WNR) MEDICARE (M) PART B Jul 18, 2009 PART B [id number] MAYI ONEAL PATIENT MEDICARE (WNR) MEDICARE (M) PART B Jul 18, 2009 PART B [id number] [phone] MAYI ONEAL PATIENT MEDICARE (WNR) MEDICARE (M) PART A Oct 16, 2008 PART A [id number] JMGENE PATIENT MEDICARE (WNR) MEDICARE (M) PART A Oct 16, 2008 PART A [id number] [phone] JMGENE PATIENT MEDICARE PART D (WNR) MEDICARE (M) PART D Jul 18, 2015 PART D [id number] JMGENE PATIENT MEDICARE PART D (WNR) MEDICARE (M) PART D Jul 18, 2015 PART D [id number] JMGENE PATIENT MEDICARE PART D (WNR) MEDICARE (M) PART D Jul 18, 2012 PART D [id number] MAYI ONEAL PATIENT MEDICARE PART D (WNR) MEDICARE (M) PART D Jul 18, 2012 PART D [id number] MAYI ONEAL PATIENT Selected Encounter This section includes the information on record at ID for the Encounter. Date/Time Encounter Type Encounter Description Reason Provider Source November 27, 2020 02:25 PM Outpatient Encounter COMMUNITY CARE CONSULT IHE Encounter Template Text not used by [place] Assessments - Encounter Diagnoses No Data Provided for This Section Plan of Treatment: Future Appointments (+ 6 months) and Future Tests (+/- 45 day s) The Plan of Treatment section includes future care activities for the patient fr om all ID treatment facilities. This section includes future appointments and fu ture orders which are active, pending or scheduled. Future Appointments This section includes appointments that were scheduled t o occur 6 months from the date of the Encounter, up to a maximum of 20 appointme nts. The data comes from all ID treatment facilities. Appointment Date/Time Appointment Type Appointment Facili ty Name Dec 29, 2020 10:00 AM AMBULATORY - NONE [facility] Jan 01, 2021 02:30 PM AMBULATORY - PS[facility]CHIATRY [facility] Mar 19, 2021 11:30 AM [...] and tobacco- related health factors from the ID facility where the Encounter took place. Current Smoking Status This section includes the most current smoking, or tobacco -related health factor, from the ID facility where the Encounter took place. Date/Time Current Smoking Status Comment Facility Jun 18, 2013 01:14 PM V16 TOBACCO USE SCREEN [facility] Tobacco Use History This section includes a history of the smoking, or tobacco -related health factors, that were collected on or before the date of the Encoun ter. The data comes from the ID facility where the Encounter took place. Date/Time Smoking Status/Tobacco Use Comment [facility] it Jun 18, 2013 01:14 PM [...] Encounter Note(s) Provider Source Dec 29, 2020 11:10 AM NONVA NOTE: LOCAL TITLE: COMMUNITY CARE-MISCELLANEOUS STANDARD TITLE: NONVA NOTE DATE OF NOTE: DEC 29, 2020@11:10 ENTRY DATE: DEC 29, 2020@11:10:29 AUTHOR: CASSANDRA REYNOLDS EXP COSIGNER: URGENCY: STATUS: COMPLETED COMMUNITY CARE-MISCELLANEOUS Has ADDENDA Surgical Pathology Report [facility] SPEC: [id number] 11/18/2020 prostate biopsy "prostatic adenocarcinoma" pathology review for Sarah Clintonzoraida LAUREANO requested. [facility] requires RAINA prior to releasing speciman for review. defer to [employer] (acquired by [employer]) TM 4 to provide and send for scanning. please alert Iftikhar Glynn in the lab once available, thank you /mauri/ CASSANDRA REYNOLDS APN OFFICE OF [facility] CARE, STOCK[employer] MILLER Signed: 12/29/2020 11:11 Receipt Acknowledged By: 12/29/2020 11:43 /mauri/ IFTIKHAR SHUKLA-LAB 12/29/2020 11:56 /es/ JER BOWMAN APN PRIMARY CARE-KERI * AWAITING SIGNATURE * SHASHI MARTINEZ 12/29/2020 ADDENDUM STATUS: COMPLETED Please obtain RAINA so we can request pathology report from prostate biopsy done at [facility] and send for scanning once it is received. /mauri/ JER GARCIA APN PRIMARY CARE-KERI Signed: 12/29/2020 11:56 Receipt Acknowledged By: * AWAITING SIGNATURE * CHRISTEL SPENCER,CASSANDRA DAVIS [facility]
--- OUTSIDE RECORDS SUMMARY | 2021-02-26 00:33 | XMS REPORT | Encounter Summary ---
Author Author Department [facility] MAYI ruth Organization Department of [facility] Address Unknown Phone Unavailable Care Team Providers Care Sorter Lumber Straightener Name Role Phone JER GARCIA PCP Unavailable [...] Name Patient's Relationship to Policy Baeza AETNA [facility] (WNR) MEDICARE ADVANTAGE [facility](WNR) Jul 18, 2019 00 0003[place] [id number] MAYI ONEAL PATIENT [facility] (WNR) MEDICARE ADVANTAGE [facility] (WNR) Jul 18, 2012 [id number] MAYI ONEAL PATIENT [facility] (WNR) MEDICARE ADVANTAGE [facility] (WNR) Jul 18, 2012 [id number] MAYI ONEAL PATIENT [facility] (WNR) MEDICARE ADVANTAGE [facility] (WNR) Jul 18, 2012 [id number] MAYI ONEAL PATIENT MEDICARE (WNR) MEDICARE (M) PART B Jul 18, 2009 PART B [id number] MAYI ONEAL PATIENT MEDICARE (WNR) MEDICARE (M) PART B Jul 18, 2009 PART B [id number] [phone] MAYI ONEAL PATIENT MEDICARE (WNR) MEDICARE (M) PART A Oct 16, 2008 PART A [id number] JMGENE PATIENT MEDICARE (WNR) MEDICARE (M) PART A Oct 16, 2008 PART A [id number] [phone] MJGENE PATIENT MEDICARE PART D (WNR) MEDICARE (M) PART D Jul 18, 2015 PART D [id number] JMGENE PATIENT MEDICARE PART D (WNR) MEDICARE (M) PART D Jul 18, 2015 PART D [id number] JMGENE PATIENT MEDICARE PART D (WNR) MEDICARE (M) PART D Jul 18, 2012 PART D [id number] MAYI ONEAL PATIENT MEDICARE PART D (WNR) MEDICARE (M) PART D Jul 18, 2012 PART D [id number] MAYI ONEAL PATIENT Selected Encounter This section includes the information on record at [place] for the Encounter. Date/Time Encounter Type Encounter Description Reason Provider Source November 27, 2020 12:00 AM Outpatient Encounter COMMUNITY CARE [...] 2020 10:00 AM AMBULATORY - NONE [facility] Jan 01, 2021 02:30 PM [facility] Mar 19, 2021 11:30 AM [facility]AT[facility] - [facility] Surgical Procedures: All [...] took place. Date/Time Smoking Status/Tobacco Use Comment [facility] it Jun 18, 2013 01:14 PM [...] Encounter. Date/Time Encounter Note(s) Provider Source November 27, 2020 12:00 AM NONVA CONSULT: LOCAL TITLE: COMMUNITY CARE-CONSULT RESULT NOTE STANDARD TITLE: NONVA CONSULT DATE OF NOTE: NOVEMBER 27, 2020 ENTRY DATE: DECEMBER 02, 2020@07:59:17 AUTHOR: JENNY [place] EXP COSIGNER: URGENCY: STATUS: COMPLETED VistA Imaging - Scanned Document [facility] 5-13-21 VISIT /es/ JENNY [place] Loss Prevention/Safety District Manager Signed: 12/02/2020 07:59 JENNY [place] [facility]
--- OUTSIDE RECORDS SUMMARY | 2021-02-26 00:33 | XMS REPORT | Encounter Summary ---
Author [facility] Organization [facility] Address Unknown Phone Unavailable Care Team Providers Care Nurse Leader Name Role Phone JER GARCIA PCP Unavailable [...] [facility] [place] [facility]) Jul 18, 2019 00 0003-[place] [id number] MAYI FARRELL PATIENT [facility] (WNR) MEDICARE ADVANTAGE [facility] (WNR) Jul 18, 2012 [id number] MAYI FARRELL PATIENT [facility] (WNR) MEDICARE ADVANTAGE [facility] (WNR) Jul 18, 2012 [id number] [facility] (WNR) MEDICARE ADVANTAGE [facility] (WNR) Jul 18, 2012 [id number] MAYI FARRELL PATIENT MEDICARE (WNR) MEDICARE (M) PART B Jul 18, 2009 PART B [id number] MAYI FARRELL PATIENT MEDICARE (WNR) MEDICARE (M) PART B Jul 18, 2009 PART B [id number] [phone] FARRELL,GENE PATIENT MEDICARE (WNR) MEDICARE (M) PART A Oct 16, 2008 PART A [id number] JMGENE PATIENT MEDICARE (WNR) MEDICARE (M) PART A Oct 16, 2008 PART A [id number] JMGENE PATIENT MEDICARE PART D (WNR) MEDICARE (M) PART D Jul 18, 2015 PART D [id number] JMGENE PATIENT MEDICARE PART D (WNR) MEDICARE (M) PART D Jul 18, 2015 PART D [id number] JMGENE PATIENT MEDICARE PART D (WNR) MEDICARE (M) PART D Jul 18, 2012 PART D [id number] MAYI FARRELL PATIENT MEDICARE PART D (WNR) MEDICARE (M) PART D Jul 18, 2012 PART D [id number] MAYI FARRELL PATIENT Selected Encounter This section includes the information on record at [place] for the Encounter. Date/Time Encounter Type Encounter Description Reason Provider Source November 20, 2020 02:00 PM Outpatient Encounter TELEPHONE ICD-1 0-CM F33.9 Major depressive disorder, recurrent, unspecified with Provider Comments: Depression ([facility] [id number]) SUDEEP MENDOZA Reny Encounter Template Text not used by [place] Assessments - Encounter Diagnoses This section includes the primary and secondary diag noses documented for the Encounter. Date/Time Primary/Secondary Diagnosis Diagnosis Name Provider Source November 20, 2020 02:00 PM PRIMARY Major depressive disorder, recurrent, unspecified [facility] November 20, 2020 02:00 PM SECONDARY Insomnia, unspecified ANETA STARK [facility] November 20, 2020 02:00 PM SECONDARY Parkinson's disease SARBJIT STARK [facility] Plan of Treatment: Future Appointments (+ 6 months) and Future Tests (+/- 45 day s) The Plan of Treatment section includes future care activities for the patient fr om all VA treatment facilities. This section includes future appointments and fu ture orders which are active, pending or scheduled. Future Appointments This section includes appointments that were scheduled t o occur 6 months from the date of the Encounter, up to a maximum of 20 appointme nts. The data comes from all [place] treatment facilities. Appointment Date/Time Appointment Type Appointment Facili ty Name November 27, 2020 02:25 PM AMBULATORY - NONE [facility] Dec 29, 2020 10:00 AM AMBULATORY - NONE [facility] Jan 01, 2021 02:30 PM [facility] Mar 19, 2021 11:30 AM AM[facility]UL[facility] - [facility]RY [facility] Surgical Procedures: All associated to [...] in Height Weight Body Mass Index Source November 20, 2020 11:43 AM 0 [facility] Immunizations: All administered on the encounter date No Data Provided for This Section Social History: Smoking Status (Most current) and Tobacco Use (All prior to enco unter date) This section includes the most current, and the historical, smoking and tobacco- related health factors from the [place] facility where the Encounter took place. Current Smoking Status This section includes the most current smoking, or tobacco -related health factor, from the [place] facility where the Encounter took place. Date/Time Current Smoking Status Comment Facility Oct 02, 2020 02:00 PM VA-TOBACCO NEVER USED [facility] Tobacco Use History This section includes a history of the smoking, or tobacco -related health factors, that were collected on or before the date of the Encoun ter. The data comes from the [place] facility where the Encounter took place. Date/Time Smoking Status/Tobacco Use Comment Facil ity Oct 14, 2018 01:47 PM V16 TOBACCO USE SCREEN [facility] Oct 14, 2018 01:47 PM VA-TOBACCO FORMER USER [facility] Oct 14, 2018 01:47 PM VA-TOBACCO QUIT 15 YRS OR MORE [facility]I [facility] Advance Directives: All historical and current No Data Provided for This Section Radiology Reports: +/- 30 days of the encounter No Data Provided for This Section Pathology Reports: +/- 30 days of the encounter No Data Provided for This Section Encounter Notes: All associated encounter notes This section contains the clinical notes associated to the Encounter. Date/Time Encounter Note(s) Provider Source November 20, 2020 02:55 PM MEDICATION MGT NOTE: LOCAL TITLE: MEDICATION RECONCILIATION (PROVIDER) STANDARD TITLE: MEDICATION MGT NOTE DATE OF NOTE: NOVEMBER 20, 2020@14:55 ENTRY DATE: NOVEMBER 20, 2020@14:55:37 AUTHOR: SUDEEP MENDOZA COSIGNER: URGENCY: STATUS: COMPLETED Medication Reconciliation COMPLETED (Outpatient): The following medication additions, deletions, dosage changes, OR duplications were identified and discussed with patient/caregiver. Specify: d/c mirtazapine start cyproheptadine This Medication Reconciliation note and Patient Medication Information Cover Sheet were reviewed with the patient and/or caregiver and all questions answered. A copy of this note was given to or mailed to patient and/or caregiver at the end of this visit. Remote and Local Allergies: FACILITY ALLERGY/ADR -------- No Remote Allergy/ADR Data available for this patient [facility] ERYTHROMYCIN [facility] FINASTERIDE [facility] GABAPENTIN [facility] SIMVASTATIN [facility] VENLAFAXINE A list of active outpatient prescriptions dispensed from this local [place] and dispensed remotely from another [place] or [facility] facility as well as local, pending [...] JUICE 2) CYPROHEPTADINE 4MG TAB TAKE ONE TABLET BY MOUTH AT ACTIVE (S) BEDTIME -(MAY CAUSE DROWSINESS) FOR INSOMNIA 3) DUTASTERIDE 0.5MG CAP *HD* TAKE ONE CAPSULE BY MOUTH ACTIVE ONCE DAILY REPLACES FINASTERIDE FOR PROSTATE (CONSULT APPROVED) 4) QUETIAPINE 300MG TAB TAKE ONE TABLET BY MOUTH EVERY ACTIVE MORNING FOR MOOD Active Non-VA Medications Status [...] No Active Remote Medications for this patient /mauri/ SUDEEP MENDOZA PSYCHIATRIST Signed: 11/20/2020 14:55 [facility]END[facility] November 20, 2020 02:06 PM MENTAL HEALTH NOTE: LOCAL TITLE: [facility] INDIVIDUAL NOTE STANDARD TITLE: MENTAL HEALTH NOTE DATE OF NOTE: NOVEMBER 20, 2020@14:06 ENTRY DATE: NOVEMBER 20, 2020@14:06:54 AUTHOR: SUDEEP MENDOZA EXP COSIGNER: URGENCY: STATUS: COMPLETED PSYCHIATRIC OUTPATIENT PROGRESS NOTE TELECARE VISIT DUE TO COVID 19 PANDMEIC and provider working remotely Time Spent : 20mins Mr. Farrell is a 70 year old MALE [facility] [place]. carries a psychiatric diagnosis of Unspecified Depressive Disorder Unspecified Anxiety DIsorder, Insomnnia, Parkinson's disease We had a telecare session in October,. At that time, [place] continued to report low mood, depressive symptoms as well as chronic insomnia. He would like an increase in quetiapine dose but due to concerns over Antidopaminergic action with Parkinsons' disease would not recommend this. Will try to find another sleep aid which Kamilah can tolerate and hopefully reduce antipsychotic over time. He denies experiencing suicidal ideation intent or urge to end his life. He has had 2 attempts in the past. Medication adjustments were made including, continue mirtazapine 15mgs poqhs for mood and sleep; may need to adjust dose Will continue quetiapine 300mgs po qhs for now d/c lorazepam 0.25mgs po BID Vet self discontinued contiue benztropine 1mg po BID INTERVAL HISTORY AND CURRENT ISSUES: [place] reports he has not noticed a difference in sleep quality with addition of mirtazapine. He states since he stopped the lorazepam he has noticed his mood is better. He states recent labwork showed abnnormalties- with renal function. He has a prostate biopsy for next week. He states he has been taking the quetiapine for sleep for years. He states the quetiapine "really helps with sleep". He is obtaining 6-8 hrs of sleep. He denies using the restroom often. He denies experiencing any nightmares. endorses persistant low mood, denies major stressors. Vet denies experiencing suicidal ideation intent or urge to end his life. He states appetite is "good", usually a smoothie for breakfast. Vet watches tv mainly. He does not like to read. Advised to trial a more challenging activity. admits he is forgetful, he forgets to machine pecan picker items from the store. states he [...] was before lorazepam. He was , hospitalized [facility]. Med Trials: amitriptyline abilify Bupropion: interfered with sleep citalopram: made him naseous sertraline fluoxetine venlafaxine, escitalopram- weight gain duloxetine, hydroxyzine, lithium, prior to the [facility]. lorazepam- self discontinued methylphenidate trazodone- ineffective melatonin- ineffective mirtazapine- 15mgs ineffctive for sleep SUBSTANCE USE: Alcohol: denies Tobacco: denies Illicit Drugs, or inappropiate drug use: no Caffeine: stays to clear PAST MED HX: Chronic Illnesses/Surgeries: Active Problems Parkinsons disease Depression Tremor Benign prostatic hyperplasia Colonoscopy normal Sleep apnea Moderate recurrent major depression Insomnia (SNOMED CT 826648533) Meir hematuria (SNOMED CT 09114929 Hyperlipidemia (SNOMED CT 64098631) Elevated PSA (SNOMED CT 197581566) Nausea with Vomiting (ICD-9-CM 787. Chronic kidney disease stage 2 (SNO Major Depressive Disorder, Recurren Temporomandibular Joint Syndrome H/O: surgery Allergic rhinitis (SNOMED CT 949139 Erectile dysfunction (SNOMED CT 397 Acute Venous Embolism and Thrombosis Active Outpatient Medications (excluding Supplies): Active Outpatient Medications Status 1) ATORVASTATIN 20MG TAB TAKE ONE-HALF TABLET BY MOUTH ACTIVE AT BEDTIME FOR CHOLESTEROL - DO NOT TAKE WITH GRAPEFRUIT JUICE 2) DUTASTERIDE 0.5MG CAP *HD* TAKE ONE CAPSULE BY MOUTH ACTIVE ONCE DAILY REPLACES FINASTERIDE FOR PROSTATE (CONSULT APPROVED) 3) MIRTAZAPINE 30MG TAB TAKE ONE-HALF TABLET BY MOUTH AT ACTIVE (S) BEDTIME FOR MOOD/SLEEP 4) QUETIAPINE 300MG TAB TAKE ONE TABLE T BY MOUTH EVERY ACTIVE MORNING FOR MOOD Active Non-VA Medications Status [...] QUNOL MOUTH ONCE DAILY 11 Total Medications ALLERGIES: ERYTHROMYCIN, SIMVASTATIN, FINASTERIDE, GABAPENTIN, [...] - NONE FOUND - 1D Pain: 0 (11/20/2020 11:43) ALLERGIES: ERYTHROMYCIN, SIMVASTATIN, FINASTERIDE, GABAPENTIN, VENLAFAXINE FAMILY HISTORY : [id number] in [employer]: stayed in the Grew up: [place], mostly. Parents stayed , one older sister, [...] with interview SPEECH: clear, non pressured MOOD: "better" TP: linear TC: devoid of thought disorder or perceptual disturbances He denies experiencing suicidal ideation intent plan or urge. He denies expereincing homicidal ideation intent plan or urge. INSIGHT; fair JUDGEMENT: fair ASSESSMENT: [place] reports improvement in mood but denies any improvement with sleep. He would like an increase in quetiapine dose but due to concerns over Antidopaminergic action with Parkinsons' disease would not recommend this. Will try to find another sleep aid which Vet can tolerate and hopefully reduce antipsychotic over time. He denies experiencing suicidal ideation intent or urge to end his life. He has had 2 attempts in the past. DIAGNOSIS (DSM-5): Unspecified Depressive Disorder Unspecified ANxiety DIsorder Insomnnia Parkinson's disease PLAN: Supportive therapy and psychoeducation provided regarding psychiatric medications and current psychosocial stressors. * PSYCHOTHERAPY TIME:10 mins 1. Meds: will d/c mirtazapine as not providing any benefit for sleep (primarily prescribed for this) Will eval if d/c of mirtazapine has any impact on mood trial cyproheptadine 4mgspo qhs for sleep Will continue quetiapine 300mgs po qhs for now contiue benztropine 1mg po BID I discussed risks/benefits/side effects of above treatment [...] N eurology 3. RTC in 6 weeks [place] aware of emergency services offered; should mood worsen he can present to walk in clinic; he was also provided with [place] Crisis Line Number. He is aware should suicidal ideation occur he is to call 911 or present to nearest ER for further evaluation. /mauri/ SUDEEP MENDOZA PSYCHIATRIST Signed: 11/20/2020 14:55 SUDEEP MENDOZA [facility] November 20, 2020 11:38 AM TELEPHONE ENCOUNTER NOTE: LOCAL TITLE: TELECARE STANDARD TITLE: TELEPHONE ENCOUNTER NOTE DATE OF NOTE: NOVEMBER 20, 2020@11:38 ENTRY DATE: NOVEMBER 20, 2020@11:38:56 AUTHOR: CAITIE STARK EXP COSIGNER: URGENCY: STATUS: COMPLETED PATIENT NAME: MAYI FARRELL SSN: [id number] FUTURE APPOINTMENTS:11/20/2020 14:00 KIM CHAPARRO TELE PSYCH 8 11/27/2020 14:25 [facility] CARE-UROLOGY PATIENT'S HOME PHONE: REASON FOR CALL: Nursing intake for telephone appt with Dr Mendoza at 1400. [place] rates depression 01/24 and anxiety 10/25. Denies SI and HI. Reports that he sleeps 6-7 hours at night but is feeling that he needs a higher dose of medication to sleep better. Denies any other concerns today. The 's phone number and address: [address] [place] [phone] The 's present location: home The 's emergency contact name and phone number: attila Zee has verbally consented to telehealth; alternatives for obtaining care through in-person visit and right of refusal at any time have been explained. agreed to services today. Coronavirus Disease 2019 (COVID-19) Screen The patient was asked if in the last 14 days they have had new onset of any COVID-19 symptoms. They report the following: No symptoms Within the past 14 days, the patient reports no exposure to someone with a febrile/respiratory illness or someone with a known or suspected case of COVID-19 (within 6 feet for > 15 minutes). Result: Screen is negative. Daily Aspirin (Nurse): Patient does not take daily aspirin. Pain Evaluation (Nurse): PAIN EVALUATION: Clinic Location: Mental Health Patient reports no pain present today. Pain Score: 0 DIAGNOSIS: nursing intake TIME: [id number] (Patient has been instructed to go to [facility] Emergency Room or to seek care elsewhere. FINANCIAL DISCLAIMER was read to caller ( ) Yes (x) Not Applicable) FINANCIAL DISCLAIMER: "This is not an authorization for [place] Payment" and also "Have hospital contact the nearest [place] Facility for transfer upon stabilization". /mauri/ CAITIE STARK RN PRIMARY CARE REGISTERED NURSEJUNE Signed: 11/20/2020 11:45 [facility]
--- OUTSIDE RECORDS SUMMARY | 2021-02-26 00:33 | XMS REPORT | Encounter Summary ---
Author Author Department [facility] MAYI ruth Organization Department of [facility] Address Unknown Phone Unavailable Care Team Providers Care Retail Worker Name Role Phone JER GARCIA PCP Unavailable [...] Name Patient's Relationship to Policy Baeza AETNA [facility] (WNR) MEDICARE ADVANTAGE [facility](WNR) Jul 18, 2019 00 0003-[place] [id number] MAYI ONEAL PATIENT [facility] (WNR) MEDICARE ADVANTAGE [facility] (WNR) Jul 18, 2012 [id number] AMYI ONEAL PATIENT [facility] (WNR) MEDICARE ADVANTAGE [facility] (WNR) Jul 18, 2012 [id number] MAYI ONEAL PATIENT [facility] (WNR) MEDICARE ADVANTAGE [facility] (WNR) Jul 18, 2012 [id number] MAYI ONEAL PATIENT MEDICARE (WNR) MEDICARE (M) PART B Jul 18, 2009 PART B [id number] MAYI ONEAL PATIENT MEDICARE (WNR) MEDICARE (M) PART B Jul 18, 2009 PART B [id number] [phone] MAYI ONEAL PATIENT MEDICARE (WNR) MEDICARE (M) PART A Oct 16, 2008 PART A [id number] MAYI ONEAL PATIENT MEDICARE (WNR) MEDICARE (M) PART A Oct 16, 2008 PART A [id number] [phone] JMGENE PATIENT MEDICARE PART D (WNR) MEDICARE (M) PART D Jul 18, 2015 PART D [id number] JMGENE PATIENT MEDICARE PART D (WNR) MEDICARE (M) PART D Jul 18, 2015 PART D [id number] MAYI ONEAL PATIENT MEDICARE PART D (WNR) MEDICARE (M) PART D Jul 18, 2012 PART D [id number] MAYI ONEAL PATIENT MEDICARE PART D (WNR) MEDICARE (M) PART D Jul 18, 2012 PART D [id number] MAYI ONEAL PATIENT Selected Encounter This section includes the information on record at [place] for the Encounter. Date/Time Encounter Type Encounter Description Reason Provider Source Nov 06, 2020 08:05 AM Outpatient Encounter ADMIN PAT ACTIVTIES ([facility]) I[facility] Encounter Template Text not used by [place] Assessments - Encounter Diagnoses No Data Provided for This Section Plan of Treatment: Future Appointments (+ 6 months) and Future Tests (+/- 45 day s) The Plan of Treatment section includes future care activities for the patient fr om all [place] treatment facilities. This section includes future appointments and fu ture orders which are active, pending or scheduled. Future Appointments This section includes appointments that were scheduled t o occur 6 months from the date of the Encounter, up to a maximum of 20 appointme nts. The data comes from all [place] treatment facilities. Appointment Date/Time Appointment Type Appointment Facili ty Name November 20, 2020 02:00 PM AMBULATORY - PSYCHIATRY [facility] November 27, 2020 02:25 PM AMBULATORY - NONE [facility] Dec 29, 2020 10:00 AM AMBULATORY - NONE [facility] Jan 01, 2021 02:30 PM AMBULATORY - PSYCHIATRY [facility] Mar 19, 2021 11:30 [...] and tobacco- related health factors from the [place] facility where the Encounter took place. Current Smoking Status This section includes the most current smoking, or tobacco -related health factor, from the [place] facility where the Encounter took place. Date/Time Current Smoking Status Comment Facility Jun 18, 2013 01:14 PM V16 TOBACCO USE SCREEN [facility] Tobacco Use History This section includes a history of the smoking, or tobacco -related health factors, that were collected on or before the date of the Encoun ter. The data comes from the [place] facility where the Encounter took place. Date/Time Smoking Status/Tobacco Use Comment [facility] Jun 18, 2013 01:14 PM V16 TOBACCO USE SCREEN [facility] December 16, 2011 02:56 AM LIFETIME NON-TOBACCO USER [facility] Advance Directives: All historical and current No Data Provided for This Section Radiology Reports: +/- 30 days of the encounter No Data Provided for This Section Pathology Reports: +/- 30 days of the encounter No Data Provided for This Section Encounter Notes: All associated encounter notes This section contains the clinical notes associated to the Encounter. Date/Time Encounter Note(s) Provider Source Nov 06, 2020 08:05 AM ADMINISTRATIVE NOTE: LOCAL TITLE: ADMINISTRATIVE NOTE STANDARD TITLE: ADMINISTRATIVE NOTE DATE OF NOTE: NOV 06, 2020@08:05 ENTRY DATE: NOV 06, 2020@08:05:45 AUTHOR: BEAR ULLOA EXP COSIGNER: URGENCY: STATUS: COMPLETED Clinical Contact/Call Center Coronavirus Disease 2019 (COVID-19) Screen, jyothi. , 2020 DIAGNOSIS AND TESTING STATUS: Has been diagnosed with COVID-19: () Yes* Date: (*No Further Screening Req uired) (x) No (Continue Screening) Comment(s): Is waiting for COVID-19 test results: () Yes [...] RESULT: Any symptom or exposure= positive screen () POSITIVE SCREEN: Patient has a Positive symptom and/or exposure. Follow-up required. (x) Negative Screen () DECLINED screening () SCREENING COULD NOT BE COMPLETED, VEChet VIRAMONTES WAS NOT PRESENT. /mauri/ BEAR [facility] Signed: 11/06/2020 08:05 [facility] Nov 06, 2020 08:05 AM ADMINISTRATIVE NOTE: LOCAL TITLE: ADMINISTRATIVE NOTE STANDARD TITLE: ADMINISTRATIVE NOTE DATE OF NOTE: NOV 06, 2020@08:05 ENTRY DATE: NOV 06, 2020@08:05:56 AUTHOR: BEAR ULLOA EXP COSIGNER: URGENCY: STATUS: COMPLETED ADMINISTRATIVE NOTE Has ADDENDA Lyman called to request CPAP P10 mask and tubing. can be reached at: /karey [facility] Signed: 11/06/2020 08:06 Receipt Acknowledged By: 11/06/2020 08:51 /karey MARTINEZ RN NURSING SERVICE 11/06/2020 ADDENDUM STATUS: COMPLETED ordered /karey MARTINEZ RN NURSING SERVICE Signed: 11/06/2020 08:51 [facility]
--- OUTSIDE RECORDS SUMMARY | 2021-02-26 00:33 | XMS REPORT | Encounter Summary ---
Author Author Department [facility] MAYI ruth Organization Department of [facility] Address Unknown Phone Unavailable Care Team Providers Care Project Planner Name Role Phone JER GARCIA PCP Unavailable [...] Name Patient's Relationship to Policy Baeza AETNA [facility] (WNR) MEDICARE ADVANTAGE [facility](WNR) Jul 18, 2019 00 0003-[place] [id number] MAYI ONEAL PATIENT [facility] (WNR) MEDICARE ADVANTAGE [facility] (WNR) Jul 18, 2012 [id number] MAYI ONEAL PATIENT [facility] (WNR) MEDICARE ADVANTAGE [facility] (WNR) Jul 18, 2012 [id number] MAYI ONEAL PATIENT [facility] (WNR) MEDICARE ADVANTAGE [facility] (WNR) Jul 18, 2012 [id number] MAYI ONEAL PATIENT MEDICARE (WNR) MEDICARE (M) PART B Jul 18, 2009 PART B [id number] MAYI ONEAL PATIENT MEDICARE (WNR) MEDICARE (M) PART B Jul 18, 2009 PART B [id number] [phone] MAYI ONEAL PATIENT MEDICARE (WNR) MEDICARE (M) PART A Oct 16, 2008 PART A [id number] MAYI ONEAL PATIENT MEDICARE (WNR) MEDICARE (M) PART A Oct 16, 2008 PART A [id number] [phone] MAYI ONEAL PATIENT MEDICARE PART D (WNR) MEDICARE (M) PART D Jul 18, 2015 PART D [id number] JMGENE PATIENT MEDICARE PART D (WNR) MEDICARE (M) PART D Jul 18, 2015 PART D [id number] JMGENE PATIENT MEDICARE PART D (WNR) MEDICARE (M) PART D Jul 18, 2012 PART D [id number] MAYI ONEAL PATIENT MEDICARE PART D (WNR) MEDICARE (M) PART D Jul 18, 2012 PART D [id number] MAYI ONEAL PATIENT Selected Encounter This section includes the information on record at [place] for the Encounter. Date/Time Encounter Type Encounter Description Reason Provider Source Oct 30, 2020 12:00 AM Outpatient Encounter COMMUNITY CARE [...] 2020 02:00 PM AMBULATORY - PS[facility]CHIATRY [facility] November 27, 2020 02:25 PM AMBULATORY - NONE [facility] Dec 29, 2020 10:00 AM AMBULATORY - NONE [facility] Jan 01, 2021 02:30 PM AMBULATORY - PSYCHIATRY [facility] Mar 19, 2021 11:30 AM AMBULATORY - PS[facility]CHIATRY [facility] Surgical Procedures: All [...] Encounter. Date/Time Encounter Note(s) Provider Source Oct 30, 2020 12:00 AM NONVA CONSULT: LOCAL TITLE: COMMUNITY CARE-CONSULT RESULT NOTE STANDARD TITLE: NONVA CONSULT DATE OF NOTE: OCT 30, 2020 ENTRY DATE: NOVEMBER 27, 2020@08:14:11 AUTHOR: SAÚL JAIN EXP COSIGNER: URGENCY: STATUS: COMPLETED [facility] - Scanned Document Office Visit 10/30/20 Keely /mauri/ Saúl Jain [employer] Signed: 11/27/2020 08:14 SAÚL JAIN [facility]
--- OUTSIDE RECORDS SUMMARY | 2021-02-26 00:34 | XMS REPORT ---
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 Name Role Phone JER GARCIA PCP Unavailable [...] Name Patient's Relationship to Policy Baeza AETNA [facility] (WNR) MEDICARE ADVANTAGE [facility](WNR) Jul 18, 2019 00 0003-[place] [id number] MAYI ONEAL PATIENT [facility] (WNR) MEDICARE ADVANTAGE [facility] (WNR) Jul 18, 2012 [id number] MAYI ONEAL PATIENT [facility] (WNR) MEDICARE ADVANTAGE [facility] (WNR) Jul 18, 2012 [id number] MAYI ONEAL PATIENT [facility] (WNR) MEDICARE ADVANTAGE [facility] (WNR) Jul 18, 2012 [id number] MAYI ONEAL PATIENT MEDICARE (WNR) MEDICARE (M) PART B Jul 18, 2009 PART B [id number] MAYI ONEAL PATIENT MEDICARE (WNR) MEDICARE (M) PART B Jul 18, 2009 PART B [id number] [phone] MAYI ONEAL PATIENT MEDICARE (WNR) MEDICARE (M) PART A Oct 16, 2008 PART A [id number] MAYI ONEAL PATIENT MEDICARE (WNR) MEDICARE (M) PART A Oct 16, 2008 PART A [id number] JMGENE PATIENT MEDICARE PART D (WNR) MEDICARE (M) PART D Jul 18, 2015 PART D [id number] JMGENE PATIENT MEDICARE PART D (WNR) MEDICARE (M) PART D Jul 18, 2015 PART D [id number] MAYI ONEAL PATIENT MEDICARE PART D (WNR) MEDICARE (M) PART D Jul 18, 2012 PART D [id number] MAYI ONEAL PATIENT MEDICARE PART D (WNR) MEDICARE (M) PART D Jul 18, 2012 PART D [id number] MAYI ONEAL PATIENT Selected Encounter This section includes the information on record at [place] for the Encounter. Date/Time Encounter Type Encounter Description Reason Provider Source Sep 25, 2020 01:59 PM Outpatient Encounter ADMIN PAT ACTIVTIES ([facility]) IHE Encounter Template Text not used [...] 01, 2020 12:00 PM AMBULATORY - MEDICINE [facility] Oct 02, 2020 02:00 PM AMBULATORY - PSYCHIATRY [facility] Oct 23, 2020 02:00 PM AMBULATORY - PSYCHIATRY [facility] Oct 30, 2020 08:00 AM AMBULATORY - NONE [facility] November 20, 2020 02:00 PM AMBULATORY - PSYCHIATRY [facility] November 27, 2020 02:25 PM AMBULATORY - NONE [facility] Dec 29, 2020 10:00 AM AMBULATORY - NONE [facility] Jan 01, 2021 02:30 PM AMBULATORY - PSYCHIATRY [facility] Mar 19, 2021 11:30 AM AMBULATORY - PSYCHIATRY [facility] Surgical Procedures: All associated to the encounter [...] took place. Date/Time Current Smoking Status Comment [facility] Jun 18, 2013 01:14 PM V16 TOBACCO USE SCREEN DARYLJEREMÍASERIC [facility] Tobacco Use History This section includes a history of the smoking, or tobacco -related health factors, that were collected on or before the date of the Encoun ter. The data comes from the [place] facility where the Encounter took place. Date/Time Smoking Status/Tobacco Use Comment [facility] Jun 18, 2013 01:14 PM V16 [...] Encounter. Date/Time Encounter Note(s) Provider Source Sep 25, 2020 01:59 PM ADMINISTRATIVE NOTE: LOCAL TITLE: COVID VACCINE SCHEDULING NOTE STANDARD TITLE: ADMINISTRATIVE NOTE DATE OF NOTE: SEP 25, 2020@13:59 ENTRY DATE: SEP 25, 2020@13:59:30 AUTHOR: ARLENE ARIZA EXP COSIGNER: URGENCY: STATUS: COMPLETED Called patient to schedule COVID Vaccine appointment Spoke with patient/other: scheduled for #J&J# on 10/01/2020 /mauri/ ARLENE ARIZA [facility] NIRAV Signed: 09/25/2020 14:00 ARLENE ARIZA [facility]
--- OUTSIDE RECORDS SUMMARY | 2021-02-26 00:34 | XMS REPORT | Encounter Summary ---
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 Name Role Phone JER GARCIA PCP [...] Relationship to Policy Baeza AETNA [facility] (WNR) MEDICARE ADVANTAGE [facility](R) Jul 18, 2019 00 0003-[place] [id number] MAYI FARRELL PATIENT [facility] (WNR) MEDICARE ADVANTAGE [facility] (WNR) Jul 18, 2012 [id number] MAYI FARRELL PATIENT [facility] (WNR) MEDICARE ADVANTAGE [facility] (WNR) Jul 18, 2012 [id number] [facility]LL [facility] (WNR) MEDICARE ADVANTAGE [facility] (WNR) Jul 18, 2012 [id number] MAYI FARRELL PATIENT MEDICARE (WNR) MEDICARE (M) PART B Jul 18, 2009 PART B [id number] MAYI FARRELL PATIENT MEDICARE (WNR) MEDICARE (M) PART B Jul 18, 2009 PART B [id number] FARRELL,GENE PATIENT MEDICARE (WNR) MEDICARE (M) PART A Oct 16, 2008 PART A [id number] JMGENE PATIENT MEDICARE (WNR) MEDICARE (M) PART A Oct 16, 2008 PART A [id number] [phone] MAYI FARRELL PATIENT MEDICARE PART D (WNR) MEDICARE (M) PART D Jul 18, 2015 PART D [id number] JMGENE PATIENT MEDICARE PART D (WNR) MEDICARE (M) PART D Jul 18, 2015 PART D [id number] JMGENE PATIENT MEDICARE PART D (WNR) MEDICARE (M) PART D Jul 18, 2012 PART D [id number] MAYI FARRELL PATIENT MEDICARE PART D (WNR) MEDICARE (M) PART D Jul 18, 2012 PART D [id number] MAYI FARRELL PATIENT Selected Encounter This section includes the information on record at [place] for the Encounter. Date/Time Encounter Type Encounter Description Reason Provider Source Oct 02, 2020 02:00 PM Outpatient Encounter TELEPHONE MH ICD-1 0-CM F33.9 Major depressive disorder, recurrent, unspecified with Provider Comments: Depression ([facility] [id number]) SUDEEP MENDOZA Reny Encounter Template Text not used by [place] Assessments - Encounter Diagnoses This section includes the primary and secondary diag noses documented for the Encounter. Date/Time Primary/Secondary Diagnosis Diagnosis Name Provider Source Oct 02, 2020 02:00 PM PRIMARY Major depressive disorder, recurrent, unspecified SUDEEP MENDOZA [facility] Oct 02, 2020 02:00 PM SECONDARY Insomnia, unspecified Lizz MENDOZA [facility] Oct 02, 2020 02:00 PM SECONDARY Parkinson's disease NADEGE MENDOZA [facility] Plan of Treatment: Future Appointments (+ 6 [...] Appointment Type Appointment Facili ty Name Oct 23, 2020 02:00 PM [facility] [place] [facility] Oct 30, 2020 08:00 AM AMBULATORY - NONE [facility] November 20, 2020 02:00 PM [facility] [place] [facility] November 27, 2020 02:25 PM AMBULATORY - NONE [facility] Dec 29, 2020 10:00 AM AMBULATORY - NONE [facility] Jan 01, 2021 02:30 PM [facility] [place] [facility] Mar 19, 2021 11:30 AM AMBULATORY - PSYCHIATRY [facility] Surgical Procedures: All associated to [...] in Height Weight Body Mass Index Source Oct 02, 2020 01:05 PM 0 [facility] Immunizations: All administered on the encounter date [...] 02, 2020 02:00 PM VA-TOBACCO NEVER USED [facility] Tobacco Use History This section includes a history of the smoking, or tobacco -related health factors, that were collected on or before the date of the Encoun ter. The data comes from the [place] facility where the Encounter took place. Date/Time Smoking Status/Tobacco Use Comment Judith taylor Oct 14, 2018 01:47 PM V16 TOBACCO USE SCREEN [facility] Oct 14, 2018 01:47 PM VA-TOBACCO FORMER USER [facility] Oct 14, 2018 01:47 PM VA-TOBACCO QUIT 15 YRS OR MORE [facility] Advance Directives: All historical and current No Data Provided for This Section Radiology Reports: +/- 30 days of the encounter No Data Provided for This Section Pathology Reports: +/- 30 days of the encounter No Data Provided for This Section Encounter Notes: All associated encounter notes This section contains the clinical notes associated to the Encounter. Date/Time Encounter Note(s) Provider Source Oct 02, 2020 03:06 PM MEDICATION MGT NOTE: LOCAL TITLE: MEDICATION RECONCILIATION (PROVIDER) STANDARD TITLE: MEDICATION MGT NOTE DATE OF NOTE: OCT 02, 2020@15:06 ENTRY DATE: OCT 02, 2020@15:06:14 AUTHOR: SUDEEP MENDOZA COSIGNER: URGENCY: STATUS: COMPLETED Medication Reconciliation COMPLETED (Outpatient): The following medication additions, deletions, dosage changes, OR duplications were identified and discussed with patient/caregiver. Specify: trial mirtazapine d/c escitalopram This Medication Reconciliation note and Patient Medication Information Cover Sheet were reviewed with the patient and/or caregiver and all questions answered. A copy of this note was given to or mailed to patient and/or caregiver at the end of this visit. Remote and Local Allergies: FACILITY ALLERGY/ADR -------- No Remote Allergy/ADR Data available for this patient [facility] ERYTHROMYCIN [facility] FINASTERIDE [facility] GABAPENTIN [facility] SIMVASTATIN [facility] VENLAFAXINE A list of active outpatient prescriptions dispensed from this [facility] and dispensed remotely from another [place] or [facility] facility as well as local, pending [...] DO NOT TAKE WITH GRAPEFRUIT JUICE 2) BENZTROPINE MESYLATE 2MG TAB TAKE ONE-HALF TABLET BY ACTIVE MOUTH TWICE A DAY 3) DUTASTERIDE 0.5MG CAP *HD* TAKE ONE CAPSULE BY MOUTH ACTIVE ONCE DAILY REPLACES FINASTERIDE FOR PROSTATE (CONSULT APPROVED) 4) LORAZEPAM 0.5MG TAB TAKE ONE-HALF TABLET BY MOUTH ACTIVE TWICE A DAY NEEDED -(MAY CAUSE DROWSINESS) 5) QUETIAPINE 300MG TAB TAKE ONE TABLET BY MOUTH EVERY ACTIVE MORNING FOR MOOD Pending Outpatient Medications Status 1) MIRTAZAPINE 30MG TAB TAKE ONE-HALF TABLET BY MOUTH AT PENDING BEDTIME Active Non-VA Medications Status 1) Non-VA ACETAMINOPHEN [...] Active Remote Medications for this patient /es/ SUDEEP MENDOZA PSYCHIATRIST Signed: 10/02/2020 15:06 SUDEEP MENDOZA [place] [facility] Oct 02, 2020 01:04 PM TELEPHONE ENCOUNTER NOTE: LOCAL TITLE: TELECARE STANDARD TITLE: TELEPHONE ENCOUNTER NOTE DATE OF NOTE: OCT 02, 2020@13:04 ENTRY DATE: OCT 02, 2020@13:04:57 AUTHOR: CAITIE STARK COSIGNER: URGENCY: STATUS: COMPLETED PATIENT NAME: MAYI FARRELL SSN: [id number] FUTURE APPOINTMENTS: Sep@14:00 KIM CHAPARRO TELE PSYCH 8 Oct@08:00 [facility] CARE-NEUROLOGY PATIENT'S HOME PHONE: REASON FOR CALL: Nursing intake for telephone appt with Dr Mendoza at 1300. rates depression 12/25 and anxiety 01/24. Denies SI and HI. Reports good sleep. Denies any concerns today. The [place]'s phone number and address: [address] [place] The 's present location: home The [place]'s emergency contact name and phone number: Saadia [phone] has verbally consented to telehealth; alternatives for [...] past 2 weeks. Result: Screen is negative. COVID-19 Immunization Status The patient has had a vaccination for COVID-19. Pain Evaluation (Nurse): PAIN EVALUATION: Clinic Location: Mental Health Patient reports no pain present today. Pain Score: 0 Tobacco Use Screening: The patient has never used tobacco. Daily Aspirin (Nurse): Patient does not take daily aspirin. (Patient has been instructed to go to [facility] Emergency Room or to seek care elsewhere. FINANCIAL DISCLAIMER was read to caller ( ) Yes (x) Not Applicable) FINANCIAL DISCLAIMER: "This is not an authorization for VA Payment" and also "Have hospital contact the nearest [place] Facility for transfer upon stabilization". /mauri/ CAITIE STARK RN PRIMARY CARE REGISTERED NURSE-KERI Signed: 10/02/2020 13:16 CAITIE STARK [facility] [facility] Oct 02, 2020 12:55 PM PSYCHIATRY ADMISSION EVALUAT ION NOTE: LOCAL TITLE: PSYCHIATRIC EVALUATION STANDARD TITLE: PSYCHIATRY ADMISSION EVALUATION NOTE DATE OF NOTE: OCT 02, 2020@12:55 ENTRY DATE: OCT 02, 2020@12:56 AUTHOR: SUDEEP MENDOZA EXP COSIGNER: URGENCY: STATUS: COMPLETED TELECARE VISIT DUE TO COVID 19 PANDMEIC and provider working remotely Time Spent : 20 mins Time is limited, as Vet did not pepper picker and second there no answer. Had to wait until I could call back. HISTORY OF PRESENT ILLNESS: Mr. Farrell is a 70 year old MALE [facility] . [place] carries a psychiatric diagnosis of Depressive Disorder And Unspecfied Anxiety, Parkinsons Disease. [place] was seen by Dr. Loera and then he requested achange in provider and was assigned to Bela CANTU. She then requested he se seen by a psychiatrist as he would not reduce quetiapine dose. He states he has been taking the quetiapine for sleep for years. He states the quetiapine "really helps with sleep". He is hesitant to try another medication for sleep. reports he stopped the escitalopram a couple weeks ago, he e feels he has gained 10 lbs because of it. endorses low mood, denies major stressors. Vet denies experiencing suicidal ideation intent or urge to end his life. states he is retired. He denies financial worry at this time. He received the J[employer]J Covid Vaccine yesterday, his arm is sore. PSYCH ROS: He denies experiencing symptoms consistent with manic episode including 4 or more days of euphoric mood, distractibility, decrease need for sleep, increase in goal oriented behavior and energy, impulsivity He denies experiencing psychotic symptoms. PAST PSYCH HX: SA: OD lorazepam, more than a decade ago. Injected a needle into leg with pesticide, leg turned black, that was before lorazepam. He was , hospitalized [facility]. Med Trials: trazodone at night for sleep abilify Bupropion: interfered with sleep citalopram: made him naseous sertraline fluoxetine venlafaxine, escitalopram duloxetine, hydroxyzine, lithium, prior to the [facility]. lorazepam, methylphenidate trazodone- ineffective SUBSTANCE USE: Alcohol: denies Tobacco: denies Illicit Drugs, or inappropiate drug use: no Caffeine: stays to clear PAST MED HX: Chronic Illnesses/Surgeries: Active Problems Parkinsons disease Depression Tremor Benign prostatic hyperplasia Colonoscopy normal Sleep apnea Moderate recurrent major depression Insomnia (SNOMED CT 571576667) Meir hematuria (SNOMED CT 04247113 Hyperlipidemia (SNOMED CT 81172119) Elevated PSA (SNOMED CT 741461031) Nausea with Vomiting (ICD-9-CM 787. Chronic kidney disease stage 2 (SNO Major Depressive Disorder, Recurren Temporomandibular Joint Syndrome H/O: surgery Allergic rhinitis (SNOMED CT 075567 Erectile dysfunction (SNOMED CT 397 Acute Venous Embolism and Thrombosi ALLERGIES: ERYTHROMYCIN, SIMVASTATIN, FINASTERIDE, GABAPENTIN, VENLAFAXINE RECENT VITAL SIGNS: Vitals: Height:71 in [180.3 cm] (08/29/2019 11:33) Weight:174.7 lb [79.4 kg] (08/29/2019 11:33) B/P:123/75 (10/01/2020 11:54) Pulse: 90 (10/01/2020 11:54) Respiration: 16 (10/01/2020 11:54) Temp: 97.1 F [36.2 C] (10/01/2020 11:54) O2 Sat: 10/01/20 @ 1154 PULSE OXIMETRY: 100 Pain: 0 (06/16/2020 09:17) RECENT LAB: BT - Blood Transfusions No data available CH - Chem & Hematology No data available CY - Cytopathology No data available EM - Electron Microscopy No data available JULIETTE - Microbiology No data available SP - Surgical Pathology No data available CURRENT MEDICATIONS: Active Outpatient Medications (including Supplies): Active Outpatient Medications Status 1) ATORVASTATIN 20MG TAB TAKE ONE-HALF TABLET BY MOUTH ACTIVE AT BEDTIME FOR CHOLESTEROL - DO NOT TAKE WITH GRAPEFRUIT JUICE 2) BENZTROPINE MESYLATE 2MG TAB TAKE O NE-HALF TABLET BY ACTIVE MOUTH TWICE A DAY 3) DUTASTERIDE 0.5MG CAP *HD* TAKE ONE CAPSULE BY MOUTH ACTIVE ONCE DAILY REPLACES FINASTERIDE FOR PROSTATE (CONSULT APPROVED) 4) ESCITALOPRAM 10MG TAB TAKE TWO AND ONE-HALF TABLETS ACTIVE BY MOUTH EVERY MORNING 5) LORAZEPAM 0.5MG TAB TAKE ONE-HALF T ABLET BY MOUTH ACTIVE TWICE A DAY NEEDED -(MAY CAUSE DROWSINESS) 6) QUETIAPINE 300MG TAB TAKE ONE TABLE T [...] QUNOL MOUTH ONCE DAILY 13 Total Medications FAMILY HISTORY : [id number] in [place]: stayed [place] the [place] up: [place]. Parents stayed , one older sister, [...] daughters, none together Living situation: lives with SOCIAL HISTORY: Education Level: Occupation: Relationships: Current living situation: CHILDHOOD DEVELOPMENT AND UPBRINGING: Physical or Sexual Abuse or Neglect?: MSE: GEN:70 yo man who is cooperative with interview SPEECH: clear, non pressured MOOD: "down" TP: linear TC: devoid of thought disorder or perceptual disturbances He denies experiencing suicidal ideation intent plan or urge. He denies expereincing homicidal ideation intent plan or urge. INSIGHT; fair JUDGEMENT: fair ASSESSMENT: [place] reporting low mood, depressive symptoms as well as [...] medications and current psychosocial stressors. * PSYCHOTHERAPY TIME:7mins 1. Meds: d/c escitalopram as he self dis continued this. trial mirtazapine 15mgs poqhs for mood and sleep Will continue quetiapine 300mgs po qhs for now for now continue lorazepam 0.25mgs po BID- will not increase dose contiue benztropine 1mg po BID I discussed [...] N eurology 3. RTC in 6 weeks for 60 mins aware of emergency services offered; should mood worsen he can present to walk in clinic; he was also provided with [place] Crisis Line Number. He is aware should suicidal ideation occur he is to call 911 or present to nearest ER for further evaluation. /mauri/ SUDEEP MENDOZA PSYCHIATRIST Signed: 10/07/2020 20:43 SUDEEP MENDOZA [facility]
--- OUTSIDE RECORDS SUMMARY | 2021-02-26 00:34 | XMS REPORT | Encounter Summary ---
Author Author Department [facility] Organization Department of [facility] Address Unknown Phone Unavailable Care Team Providers Care Shopper Name Role Phone JER GARCIA PCP Unavailable [...] Name Patient's Relationship to Policy Baeza AETNA [facility] (WNR) MEDICARE ADVANTAGE [facility](WNR) Jul 18, 2019 00 [id number] MAYI ONEAL PATIENT [facility] (WNR) MEDICARE ADVANTAGE [facility] (WNR) Jul 18, 2012 [id number] MAYI ONEAL PATIENT [facility] (WNR) MEDICARE ADVANTAGE [facility] (WNR) Jul 18, 2012 [id number] MAYI ONEAL PATIENT [facility] (WNR) MEDICARE ADVANTAGE [facility] (WNR) Jul 18, 2012 [id number] MAYI ONEAL PATIENT MEDICARE (WNR) MEDICARE (M) PART B Jul 18, 2009 PART B [id number] MAYI ONEAL PATIENT MEDICARE (WNR) MEDICARE (M) PART B Jul 18, 2009 PART B [id number] [phone] MAYI ONEAL PATIENT MEDICARE (WNR) MEDICARE (M) PART A Oct 16, 2008 PART A [id number] MAYI ONEAL PATIENT MEDICARE (WNR) MEDICARE (M) PART A Oct 16, 2008 PART A [id number] [phone] JMGENE PATIENT MEDICARE PART D (WNR) MEDICARE (M) PART D Jul 18, 2015 PART D [id number] JMGENE PATIENT MEDICARE PART D (WNR) MEDICARE (M) PART D Jul 18, 2015 PART D [id number] JMGENE PATIENT MEDICARE PART D (WNR) MEDICARE (M) PART D Jul 18, 2012 PART D [id number] MAYI ONEAL PATIENT MEDICARE PART D (WNR) MEDICARE (M) PART D Jul 18, 2012 PART D [id number] MAYI ONEAL PATIENT Selected Encounter This section includes the information on record at [place] for the Encounter. Date/Time Encounter Type Encounter Description Reason Provider Source Oct 01, 2020 12:00 PM OFFICE O/P EST MINIMAL PROB BEHAVIORAL PSYCHOLOGIST AL MEDICINE ICD-10-CM Z23 Encounter for immunization with Provider Comments: Encounter for Immunization JESSICA HICKS Encounter Template Text not used by [place] Assessments - Encounter Diagnoses This section includes the primary and secondary diag noses documented for the Encounter. Date/Time Primary/Secondary Diagnosis Diagnosis Name Provider Source Oct 01, 2020 11:56 AM PRIMARY Encounter for immunization [facility] Plan of Treatment: Future Appointments (+ [...] Appointment Type Appointment Facili ty Name Oct 02, 2020 02:00 PM AMBULATORY - PSYCHIATRY [facility] Oct 23, 2020 02:00 PM AMBULATORY - PSYCHIATRY [facility] Oct 30, 2020 08:00 AM AMBULATORY - NONE [facility] November 20, 2020 02:00 PM AMBULATORY - PSYCHIATRY [facility] November 27, 2020 02:25 PM AMBULATORY - NONE [facility] Dec 29, 2020 10:00 AM AMBULATORY - NONE [facility] Jan 01, 2021 02:30 PM AMBULATORY - PSYCHIATRY [facility] IC Mar 19, 2021 11:30 AM AMBULATORY - PSYCHIATRY [facility] Surgical Procedures: All associated to the encounter This section includes all Surgical Procedures and Surgical Procedure Notes assoc iated to the Encounter. Surgical Procedures This section includes all Surgical Procedures associated to the Encounter. Surgical Procedure Date/Time Procedure Procedure Type Procedure Qualifiers Provider Source Oct 01, 2020 12:00 PM ADM SARSCOV2 VAC AD26 .5ML ADM SARSCOV2 VAC AD2 [address] [facility] Surgical Notes There are no notes associated [...] Height Weight Body Mass Index Source Oct 01, 2020 11:54 AM 97.1 F 90 /min 123/75 mm[Hg] 16 /min 100 % [facility] Immunizations: All administered on the encounter date This section contains immunizations associated to the Encounter. Immunization Series Date Issued Reaction Comments COVID-19 (LIUDMILA), VECTOR-NR, RS-AD26, PF, 0.5 ML 1 Oct 01, 2020 JSN; [id number]; 12/09/2020 Social History: Smoking Status (Most current) and Tobacco Use (All prior to enco unter date) This section includes the most current, and the historical, smoking and tobacco- related health factors from the [place] facility where the Encounter took place. Current Smoking Status This section includes the most current smoking, or tobacco -related health factor, from the [facility] where the Encounter took place. Date/Time Current Smoking Status Comment Facility Oct 14, 2018 01:47 PM VA-TOBACCO QUIT 15 YRS OR MORE [facility] Tobacco Use History This section includes a history of the smoking, or tobacco -related health factors, that were collected on or before the date of the Encoun ter. The data comes from the [place] facility where the Encounter took place. Date/Time Smoking Status/Tobacco Use Comment Judith taylor Oct 14, 2018 01:47 PM [facility] Oct 14, 2018 01:47 PM VA-TOBACCO QUIT 15 YRS OR MORE [facility] Dylan [facility] Advance Directives: All historical and current No Data Provided for This Section Radiology Reports: +/- 30 days of the encounter No Data Provided for This Section Pathology Reports: +/- 30 days of the encounter No Data Provided for This Section Encounter Notes: All associated encounter notes This section contains the clinical notes associated to the Encounter. Date/Time Encounter Note(s) Provider Source Oct 01, 2020 11:55 AM NURSING IMMUNIZATION NOTE: LOCAL TITLE: [facility] COVID-19 VACCINE ADMINISTRATION STANDARD TITLE: NURSING IMMUNIZATION NOTE DATE OF NOTE: OCT 01, 2020@11:55 ENTRY DATE: OCT 01, 2020@11:55:27 AUTHOR: JESSICA HICKS EXP COSIGNER: URGENCY: STATUS: COMPLETED [facility] COVID-19 VACCINE ADMINISTRATION Has ADDENDA The patient was given the EUA fact sheet for this vaccine which lists the benefits and side effects of the vaccine and which reviews the risks of the vaccine. The fact sheet was reviewed with the patient and they were given an opportunity to ask questions. The patient denied any prior severe reaction to this vaccine or its components. The patient gave verbal consent to receive the vaccine. The patient received Yantra COVID-19 Vaccine 0.5 ml IM. MVX (Manuf); Lot#; Exp Date: JSN; [id number]; 12/09/2020 Administration Anatomic site: Left Deltoid Vaccine administered without complications. The patient was advised to remain in the facility for 15 minutes post vaccination. The patient was given a completed COVID-19 vaccination record card, a copy of the [place] Side Effects and Adverse Events Reporting Fact Sheet and instructed on how to report any adverse reactions. Vaccine administered by policy/protocol. /mauri/ JESSICA HICKS RN BSN REGISTERED NURSE, PRIMARY CARE-KERI Signed: 10/01/2020 11:56 10/31/2020 ADDENDUM STATUS: COMPLETED Attempted to reach , left message via phone regarding the pause of the Liudmila vaccine. [place] instructed to monitor for the following symptoms over the course of three weeks after the vaccination. * A headache that occurs 6 days or more after vaccination * A headache that is different from other headaches you have had * Confusion or trouble thinking clearly * Visual changes, such as blurry vision * Weakness, numbness, or trouble moving one or more parts of your body, trouble speaking or seizures * Tiny spots under the skin away from the area where you had the injection (this is a sign of low platelets) [place] instructed to contact their [place] health care provider if one or more of these symptoms develop. If symptoms are severe, seek immediate medical attention at the closest emergency department or call mauri/ JIM GERARD,RN JIM GERARD,RN Signed: 10/31/2020 14:16 11/05/2020 ADDENDUM STATUS: COMPLETED Spoke with pt by phone: [facility] contacted via phone regarding the pause of the Jansson vaccine. [facility] reports no signs and symptoms currently. [place] instructed to monitor for the following symptoms over the course of three weeks after the vaccination. * A headache that occurs 6 days or more after vaccination * A headache that is different from other headaches you have had * Confusion or trouble thinking clearly * Visual changes, such as blurry vision * Weakness, numbness, or trouble moving one or more parts of your body, trouble speaking or seizures * Tiny spots under the skin away from the area where you had the injection (this is a sign of low platelets) [place] instructed to contact their [place] health care provider if one or more of these symptoms develop. If symptoms are severe, seek immediate medical attention at the closest emergency department or call mauri/ BRINDA ROBERTSON RN NURSING SERVICE Signed: 11/05/2020 14:00 JESSICA HICKS [facility]
--- OUTSIDE RECORDS SUMMARY | 2021-02-26 00:34 | XMS REPORT | Encounter Summary ---
Author Author Department [facility] Organization Department of [facility] Address Unknown Phone Unavailable Care Team Providers Care Equipment Analyst Name Role Phone JER GARCIA PCP Unavailable [...] Relationship to Policy Baeza AETNA [facility] (WNR) MEDICARE ADVANTAGE [facility](R) Jul 18, 2019 00 [id number] MAYI FARRELL PATIENT [facility] (WNR) MEDICARE ADVANTAGE [facility] (WNR) Jul 18, 2012 [id number] MAYI FARRELL PATIENT [facility] (WNR) MEDICARE ADVANTAGE [facility] (WNR) Jul 18, 2012 [id number] [facility] (WNR) MEDICARE ADVANTAGE [facility] (WNR) Jul 18, 2012 [id number] MAYI FARRELL PATIENT MEDICARE (WNR) MEDICARE (M) PART B Jul 18, 2009 PART B [id number] MAYI FARRELL PATIENT MEDICARE (WNR) MEDICARE (M) PART B Jul 18, 2009 PART B [id number] [phone] FARRELL,GENE PATIENT MEDICARE (WNR) MEDICARE (M) PART A Oct 16, 2008 PART A [id number] JMGENE PATIENT MEDICARE (WNR) MEDICARE (M) PART A Oct 16, 2008 PART A [id number] [phone] MAYI FARRELL PATIENT MEDICARE PART D (WNR) MEDICARE (M) PART D Jul 18, 2015 PART D [id number] JMGENE PATIENT MEDICARE PART D (WNR) MEDICARE (M) PART D Jul 18, 2015 PART D [id number] JMGENE PATIENT MEDICARE PART D (WNR) MEDICARE (M) PART D Jul 18, 2012 PART D [id number] MAYI FARRELL PATIENT MEDICARE PART D (WNR) MEDICARE (M) PART D Jul 18, 2012 PART D [id number] MAYI FARRELL PATIENT Selected Encounter This section includes the information on record at [place] for the Encounter. Date/Time Encounter Type Encounter Description Reason Provider Source Oct 23, 2020 02:00 PM Outpatient Encounter TELEPHONE MH ICD-1 0-CM F33.9 Major depressive disorder, recurrent, unspecified with Provider Comments: Depression ([facility] [id number]) SUDEEP MENDOZA Reny Encounter Template Text not used by [place] Assessments - Encounter Diagnoses This section includes the primary and secondary diag noses documented for the Encounter. Date/Time Primary/Secondary Diagnosis Diagnosis Name Provider Source Oct 23, 2020 02:00 PM PRIMARY Major depressive disorder, recurrent, unspecified SUDEEP MENDOZA [facility] Oct 23, 2020 02:00 PM SECONDARY Insomnia, unspecified Lizz MENDOZA [facility] Oct 23, 2020 02:00 PM SECONDARY Major depressive disorder, recurrent, moderate SUDEEP MENDOZA [facility] Plan of Treatment: Future Appointments (+ [...] 08:00 AM AMBULATORY - NONE [facility] November 20, 2020 02:00 PM [facility] November 27, 2020 02:25 PM AMBULATORY - NONE [facility] Dec 29, 2020 10:00 AM AMBULATORY - NONE [facility] Jan 01, 2021 02:30 PM [facility] Mar 19, 2021 11:30 AM [facility] Surgical Procedures: All associated to [...] Height Weight Body Mass Index Source Oct 23, 2020 01:30 PM 0 [facility] Immunizations: All administered on the encounter [...] 02, 2020 02:00 PM VA-TOBACCO NEVER USED [facility] Tobacco Use History This section includes a history of the smoking, or tobacco -related health factors, that were collected on or before the date of the Encoun ter. The data comes from the [place] facility where the Encounter took place. Date/Time Smoking Status/Tobacco Use Comment Facil ity Oct 14, 2018 01:47 PM V16 TOBACCO [facility]CREEN [facility] Oct 14, 2018 01:47 PM VA-TOBACCO FORMER USER [facility] Oct 14, 2018 01:47 PM VA-TOBACCO QUIT [address] [facility] Advance Directives: All historical and current No Data Provided for This Section Radiology Reports: +/- 30 days of the encounter No Data Provided for This Section Pathology Reports: +/- 30 days of the encounter No Data Provided for This Section Encounter Notes: All associated encounter notes This section contains the clinical notes associated to the Encounter. Date/Time Encounter Note(s) Provider Source Oct 23, 2020 02:34 PM MEDICATION MGT NOTE: LOCAL TITLE: MEDICATION RECONCILIATION (PROVIDER) STANDARD TITLE: MEDICATION MGT NOTE DATE OF NOTE: OCT 23, 2020@14:34 ENTRY DATE: OCT 23, 2020@14:34:14 AUTHOR: SUDEEP MENDOZA COSIGNER: URGENCY: STATUS: COMPLETED Medication Reconciliation COMPLETED (Outpatient): The following medication additions, deletions, dosage changes, OR duplications were identified and discussed with patient/caregiver. Specify: d/c lorazepam This Medication Reconciliation note and Patient Medication Information Cover Sheet were reviewed with the patient and/or caregiver and all questions answered. A copy of this note was given to or mailed to patient and/or caregiver at the end of this visit. Remote and Local Allergies: FACILITY ALLERGY/ADR -------- No Remote Allergy/ADR Data available for this patient [facility] ERYTHROMYCIN [facility] FINASTERIDE [facility] GABAPENTIN [facility] SIMVASTATIN [facility] VENLAFAXINE A list of active outpatient prescriptions dispensed from this [facility] and dispensed remotely from another [place] or [facility] facility as well as local, pending [...] TABLET BY MOUTH AT ACTIVE BEDTIME FOR MOOD/SLEEP 4) QUETIAPINE 300MG TAB TAKE ONE TABLET BY MOUTH EVERY ACTIVE MORNING FOR MOOD Pending Outpatient Medications Status 1) QUETIAPINE 300MG TAB TAKE ONE TABLET BY MOUTH EVERY PENDING MORNING FOR MOOD Active Non-VA Medications Status [...] QUNOL MOUTH ONCE DAILY 12 Total Medications No Active Remote Medications for this patient /mauri/ SUDEEP MENDOZA PSYCHIATRIST Signed: 10/23/2020 14:34 [facility]EP MENDOZA [facility] Oct 23, 2020 01:26 PM MENTAL HEALTH NURSING NOTE: LOCAL TITLE: MENTAL HEALTH NURSE INTAKE STANDARD TITLE: MENTAL HEALTH NURSING NOTE DATE OF NOTE: OCT 23, 2020@13:26 ENTRY DATE: OCT 23, 2020@13:26:54 AUTHOR: BARCHAK,CAMILLA J EXP COSIGNER: URGENCY: STATUS: COMPLETED SUBJECTIVE:Pre telephone appt call for MH Intake. is alert, oriented and pleasant. Denies HI/SI. The 's phone number and address:[phone] [address] [place] The 's present location:home The 's emergency contact name and phone number:Saadia () [phone] has verbally consented to telehealth; alternatives for [...] patient has had a vaccination for COVID-19. Educated the Gilbert regarding good handwashing, social distancing and avoid going out unless absolutely necessary to avoid possibilty of exposure to the Virus. voiced understanding and is agreeable with the plan. BP: 123/75 (10/01/2020 11:54) Pain: 0 (10/02/2020 13:05) Height: 71 in [180.3 cm] (08/29/2019 11:33) Weight: 174.7 lb [79.4 kg] (08/29/2019 11:33) Pulse: 90 (10/01/2020 11:54) Respiration: 16 (10/01/2020 11:54) Temperature: 97.1 F [36.2 C] (10/01/2020 11:54) ALLERGIES:ERYTHROMYCIN, SIMVASTATIN, FINASTERIDE, GABAPENTIN, VENLAFAXINE DEPRESSION SCREEN: (x)Positive ()Negative rates a 6 on a scale of 0-10 If positive, ()New/Untreated Depression SUICIDAL: (x)No ()Yes If Yes, does patient have a plan? ()Yes ()No PAIN: [x]No []Yes []Chronic or []Acute; Present Pain Level: 0 (10/02/2020 13:05) Comfort Level Scale (0-10):0 TOBACCO: (x)No ()Yes-Counseled for cessation. Has the patient traveled outside the [place] within the past 30 days? No If yes, where has the patient traveled? DIAGNOSIS: TIME: 1326 Advance Directive Screen (Nurse): "Your Rights Regarding Advance Directives" was discussed and/or provided to patient/caregiver. ADVANCE DIRECTIVE SCREEN COPY of Advance Directive NOT on file in patient's medical record. Patient does not wish to create an Advance Directive. Information provided to patient. Daily Aspirin (Nurse): Patient does not take daily aspirin. Pain Evaluation (Nurse): PAIN EVALUATION: Clinic Location: Mental Health Patient reports no pain present today. Pain Score: 0 /es/ CAMILLA SOLOMON RN PRIMARY CARE REGISTERED NURSE-RICHA Signed: 10/23/2020 13:32 CAMILLA SOLOMON [facility] Oct 23, 2020 12:50 PM MENTAL HEALTH NOTE: LOCAL TITLE: [facility] INDIV[facility]UAL NOTE STANDARD TITLE: MENTAL HEALTH NOTE DATE OF NOTE: OCT 23, 2020@12:50 ENTRY DATE: OCT 23, 2020@12:50:54 AUTHOR: SUDEEP MENDOZA EXP COSIGNER: URGENCY: STATUS: COMPLETED PSYCHIATRIC OUTPATIENT PROGRESS NOTE TELECARE VISIT DUE TO COVID 19 PANDMEIC and provider working remotely Time Spent : 30mins Mr. Farrell is a 70 year old MALE [facility] . carries a psychiatric diagnosis of Unspecified Depressive Disorder Unspecified Anxiety DIsorder, Insomnnia, Parkinson's disease We had a telecare session in October 02, 2020. Gilbert was reporting low mood, depressive symptoms as well [...] the past. Medication adjustments were made including, d/c escitalopram as he self discontinued this. trial mirtazapine 15mgs poqhs for mood and sleep Will continue quetiapine 300mgs po qhs for now for now continue lorazepam 0.25mgs po BID- will not increase dose contiue benztropine 1mg po BID INTERVAL HISTORY AND CURRENT ISSUES: reports he stopped the lorazepam as he was concerned about our discussion about this medication's side effects. Advised he should call the clinic to discuss medication changes with provider. He states he did not notice a difference in tremors since stopping this medication. He recieved the mirtazapine two weeks ago. He has not noticed a significant change in his mood or sleep. He states he has been taking the quetiapine for sleep for years. He states the quetiapine "really helps with sleep". He is obtaining 7-8 hrs of sleep. He denies using the restroom often. He denies experiencing any nightmares. Gilbert endorses persistant low mood, denies major stressors. Vet denies experiencing suicidal ideation intent or urge to end his life. He states appetite is "good", usually a smoothie for breakfast. Vet watches tv mainly. He does not like to read. Advised to trial a more challneging activity. admits he is forgetful, he forgets to pickle solution maker items from the store. Gilbert states he is retired. He denies financial [...] was before lorazepam. He was , hospitalized [facility]. Med Trials: trazodone at night for sleep abilify Bupropion: interfered with sleep citalopram: made him naseous sertraline fluoxetine venlafaxine, escitalopram- weight gain duloxetine, hydroxyzine, lithium, [facility]. lorazepam- self discontinued methylphenidate trazodone- ineffective SUBSTANCE USE: Alcohol: denies Tobacco: denies Illicit Drugs, or inappropiate drug use: no Caffeine: stays to clear PAST MED HX: Chronic Illnesses/Surgeries: Active Problems Parkinsons disease Depression Tremor Benign prostatic hyperplasia Colonoscopy normal Sleep apnea Moderate recurrent major depression Insomnia (SNOMED CT 443171758) Meir hematuria (SNOMED CT 85171097 Hyperlipidemia (SNOMED CT 12233727) Elevated PSA (SNOMED CT 532304737) Nausea with Vomiting (ICD-9-CM 787. Chronic kidney disease stage 2 (SNO Major Depressive Disorder, Recurren Temporomandibular Joint Syndrome H/O: surgery Allergic rhinitis (SNOMED CT 037681 Erectile dysfunction (SNOMED CT 397 Acute Venous Embolism and Thrombosi ALLERGIES: ERYTHROMYCIN, SIMVASTATIN, FINASTERIDE, GABAPENTIN, VENLAFAXINE Active Outpatient Medications (excluding Supplies): Active Outpatient Medications Status 1) ATORVASTATIN 20MG TAB TAKE ONE-HALF TABLET BY MOUTH ACTIVE AT BEDTIME FOR CHOLESTEROL - DO NOT TAKE WITH GRAPEFRUIT JUICE 2) DUTASTERIDE 0.5MG CAP *HD* TAKE ONE CAPSULE BY MOUTH ACTIVE ONCE DAILY REPLACES FINASTERIDE FOR PROSTATE (CONSULT APPROVED) 3) LORAZEPAM 0.5MG TAB TAKE ONE-HALF T ABLET BY MOUTH ACTIVE TWICE A DAY NEEDED -(MAY CAUSE DROWSINESS) 4) MIRTAZAPINE 30MG TAB TAKE ONE-HALF TABLET BY MOUTH AT ACTIVE BEDTIME FOR MOOD/SLEEP 5) QUETIAPINE 300MG TAB TAKE ONE TABLE T [...] - NONE FOUND - 1D Pain: 0 (10/02/2020 13:05) FAMILY HISTORY : [id number] in [place]: stayed in the [place] Grew up: [place], mostly. Parents stayed , one older sister, [...] completed HS and two years theology MSE: GEN:70 yo man who is cooperative with interview SPEECH: clear, non pressured MOOD: "down" TP: linear TC: devoid of thought disorder or perceptual disturbances He denies experiencing suicidal ideation intent plan or urge. He denies expereincing homicidal ideation intent plan or urge. INSIGHT; fair JUDGEMENT: fair ASSESSMENT: continues to report low mood, depressive symptoms as [...] stressors. * PSYCHOTHERAPY TIME:10 mins 1. Meds: continue mirtazapine 15mgs poqhs for mood and sleep; may need to adjust dose Will continue quetiapine 300mgs po qhs for now d/c lorazepam 0.25mgs po BID Vet self discontinued contiue benztropine 1mg po BID I discussed [...] RTC in 6 weeks for 60 mins Gilbert aware of emergency services offered; should mood worsen he can present to walk in clinic; he was also provided with Crisis Line Number. He is aware should suicidal ideation occur he is to call 911 or present to nearest ER for further evaluation. /mauri/ SUDEEP MENDOZA PSYCHIATRIST Signed: 10/23/2020 14:45 SUDEEP MENDOZA [facility]
--- OUTSIDE RECORDS SUMMARY | 2021-02-26 00:34 | XMS REPORT | Encounter Summary ---
Author Author Department [facility] MAYI ruth Organization Department of [facility] Address Unknown Phone Unavailable Care Team Providers Care Associate Vice President Name Role Phone JER GARCIA PCP Unavailable [...] [facility] Jul 18, 2019 00 0003[place] [id number] MAYI ONEAL PATIENT [facility] (WNR) MEDICARE ADVANTAGE [facility] (WNR) Jul 18, 2012 [id number] MAYI ONEAL PATIENT [facility] (WNR) MEDICARE ADVANTAGE [facility] (WNR) Jul 18, 2012 [id number] MAYI ONEAL PATIENT [facility] (WNR) MEDICARE ADVANTAGE [facility] (WNR) Jul 18, 2012 [id number] MAYI ONEAL PATIENT MEDICARE (WNR) MEDICARE (M) PART B Jul 18, 2009 PART B [id number] MAYI ONEAL PATIENT MEDICARE (WNR) MEDICARE (M) PART B Jul 18, 2009 PART B [id number] [phone] MAYI ONEAL PATIENT MEDICARE (WNR) MEDICARE (M) PART A Oct 16, 2008 PART A [id number] MAYI ONEAL PATIENT MEDICARE (WNR) MEDICARE (M) PART A Oct 16, 2008 PART A [id number] [phone] JMGENE PATIENT MEDICARE PART D (WNR) MEDICARE (M) PART D Jul 18, 2015 PART D [id number] JMGENE PATIENT MEDICARE PART D (WNR) MEDICARE (M) PART D Jul 18, 2015 PART D [id number] JMGENE PATIENT MEDICARE PART D (WNR) MEDICARE (M) PART D Jul 18, 2012 PART D [id number] MAYI ONEAL PATIENT MEDICARE PART D (WNR) MEDICARE (M) PART D Jul 18, 2012 PART D [id number] MAYI ONEAL PATIENT Selected Encounter This section includes the information on record at [place] for the Encounter. Date/Time Encounter Type Encounter Description Reason Provider Source Oct 27, 2020 11:52 AM Outpatient Encounter COMMUNITY CARE CONSULT JER GARCIA Encounter Template Text not used by [place] Assessments - Encounter Diagnoses No Data Provided for This Section Plan of Treatment: Future Appointments (+ 6 months) and Future Tests (+/- 45 day s) The Plan of Treatment section includes future care activities for the patient fr om all [place] treatment facilities. This section includes future appointments and fu ture orders which are active, pending or scheduled. Future Appointments This section includes appointments that were scheduled t o occur 6 months from the date of the Encounter, up to a maximum of 20 appointme nts. The data comes from all [place] treatment facilities. Appointment Date/Time Appointment Type Appointment Facili ty Name Oct 30, 2020 08:00 AM AMBULATORY - NONE [facility] November 20, 2020 02:00 PM AMBULATORY - PS[facility]RY [facility] November 27, 2020 02:25 PM AMBULATORY - NONE [facility] Dec 29, 2020 10:00 AM AMBULATORY - NONE [facility] Jan 01, 2021 02:30 PM [facility] Mar 19, 2021 11:30 AM [facility] - [facility]RY [facility] Surgical Procedures: All associated to [...] and tobacco- related health factors from the [place] facility where the Encounter took place. Current Smoking Status This section includes the most current smoking, or tobacco -related health factor, from the [place] facility where the Encounter took place. Date/Time Current Smoking Status Comment Facility Jun 18, 2013 01:14 PM V16 TOBACCO USE SCREEN [facility] Tobacco Use History This section includes a history of the smoking, or tobacco -related health factors, that were collected on or before the date of the Encoun ter. The data comes from the [place] facility where the Encounter took place. Date/Time Smoking Status/Tobacco Use Comment [facility] it Jun 18, 2013 01:14 PM [...] Encounter. Date/Time Encounter Note(s) Provider Source Oct 27, 2020 11:52 AM NONVA NOTE: LOCAL TITLE: COMMUNITY CARE-COORDINATION PLAN STANDARD TITLE: NONVA NOTE DATE OF NOTE: OCT 27, 2020@11:52 ENTRY DATE: OCT 27, 2020@11:52:46 AUTHOR: EDEL ADAIR EXP COSIGNER: URGENCY: STATUS: COMPLETED COMMUNITY CARE-COORDINATION PLAN Has ADDENDA Community Care Coordination Plan Community Care Consult: UROLOGY Chief Complaint: Dysplasia of Prostate Patient Admitted: No Level of Care Coordination Moderate This information was obtained from: Chart Review Facility Community Care Office Contact Care Coordination Point of Contact: Edel FERNANDEZ, RN [facility] does not have a caregiver. Services: Basic Care Coordination Services Monitoring and coordination of Rehab/PT Services Direct communication to referring provider Care management, if appropriate Plan: Proceed w scheduling. See consult for details. /mauri/ EDEL FERNANDEZ, RN [facility] Consult Management Nurse Signed: 10/27/2020 11:53 10/28/2020 ADDENDUM STATUS: COMPLETED SSC- prefers to self-schedule appointment. PRQ-Provider requires records to review prior to scheduling. PSP-[facility] Scheduled Provider: BORJAS NOHEMI WHITLEY [address] [place] [address] DR. JADEN DAVIS [address] P: [phone] F: [phone] PSP PKT-Referral Packet mailed to . Referral Number [id number] /mauri/ PONCHO KEANE [facility] Advanced Medical Support Asst Signed: 10/28/2020 20:41 11/04/2020 ADDENDUM STATUS: COMPLETED APPOINTMENT MANAGEMENT / MEDICAL RECORDS Appointment Community Provider/Facility: [facility] Appointment Care Site/Location: [facility] [place] [address] [address]EN [address], [place], [phone] Appointment Date: 11/27/2020 Appointment Status:SCHEDULED Appointment Provider Name: SHERICE WHITLEY Appointment Provider Treating Specialty: Urology Appointment Provider Appointment Provider Email: [email or web address] Recommended Services: Level of Care Coordination: Moderate Basic Care Coordination Services* Monitoring and coordination of rehab/PT services Direct communication to referring provider Care management, if appropriate PLAN:VERFIY CARE AND REQUEST RECORDS POST APPOINTMENT /mauri/ JESUS BE [facility] Advanced Medical Support Asst Signed: 11/04/2020 09:09 EDEL ADAIR [facility]
--- OUTSIDE RECORDS SUMMARY | 2021-02-26 00:35 | XMS REPORT | Encounter Summary ---
[facility] Address Unknown Phone Unavailable Care Team Providers Care Clinical Information Systems Director Name Role Phone JER GARCIA PCP Unavailable [...] Name Patient's Relationship to Policy Baeza AETNA [facility] (WNR) MEDICARE ADVANTAGE [facility](R) Jul 18, 2019 00 0003-[place] [id number] MAYI [facility] MEDIC[facility] ADVANTAGE [facility] (WNR) Jul 18, 2012 [id number] [facility]NR) MEDICARE ADVANTAGE [facility] (WNR) Jul 18, 2012 [id number] [facility]I [facility]AL [facility] MEDICARE ADVANTAGE [facility] (WNR) Jul 18, 2012 [id number] MAYI ONEAL PATIENT MEDICARE (WNR) MEDICARE (M) PART B Jul 18, 2009 PART B [id number] MAYI ONEAL PATIENT MEDICARE (WNR) MEDICARE (M) PART B Jul 18, 2009 PART B [id number] [phone] MAYI ONEAL PATIENT MEDICARE (WNR) MEDICARE (M) PART A Oct 16, 2008 PART A [id number] MAYI ONEAL PATIENT MEDICARE (WNR) MEDICARE (M) PART A Oct 16, 2008 PART A [id number] [phone] MAYI ONEAL PATIENT MEDICARE PART D (WNR) MEDICARE (M) PART D Jul 18, 2015 PART D [id number] JMGENE PATIENT MEDICARE PART D (WNR) MEDICARE (M) PART D Jul 18, 2015 PART D [id number] JMGENE PATIENT MEDICARE PART D (WNR) MEDICARE (M) PART D Jul 18, 2012 PART D [id number] MAYI ONEAL PATIENT MEDICARE PART D (WNR) MEDICARE (M) PART D Jul 18, 2012 PART D [id number] MAYI ONEAL PATIENT Selected Encounter This section includes the information on record at MD for the Encounter. Date/Time Encounter Type Encounter Description Reason Provider Source Sep 03, 2020 10:36 AM HC PRO PHONE CALL 5-10 MIN TELEPHONE PRIMA RY CARE ICD-10-CM Z71.89 Other specified counseling with Provider Comments: Counseling,Oth Specified SD SEYMOUR Reny Encounter Template Text not used by MD Assessments - Encounter Diagnoses This section includes the primary and secondary diag noses documented for the Encounter. Date/Time Primary/Secondary Diagnosis Diagnosis Name Provider Source Sep 03, 2020 10:36 AM PRIMARY Other specified counseling SD SEYMOUR [facility] Plan of Treatment: Future Appointments (+ 6 months) and Future Tests (+/- 45 day s) The Plan of Treatment section includes future care activities for the patient fr om all MD treatment facilities. This section includes future appointments and fu ture orders which are active, pending or scheduled. Future Appointments This section includes appointments that were scheduled t o occur 6 months from the date of the Encounter, up to a maximum of 20 appointme nts. The data comes from all MD treatment facilities. Appointment Date/Time Appointment Type Appointment Facili ty Name Oct 01, 2020 12:00 PM AMBULATORY - MEDICINE [facility] Oct 02, 2020 02:00 PM AMBULATORY - PSYCHIATRY [facility] IC Oct 23, 2020 02:00 PM AMBULATORY - PSYCHIATRY [facility] IC Oct 30, 2020 08:00 AM AMBULATORY - NONE [facility] November 20, 2020 02:00 PM AMBULATORY - PSYCHIATRY [facility] November 27, 2020 02:25 PM AMBULATORY - NONE [facility] Dec 29, 2020 10:00 AM AMBULATORY - NONE [facility] Jan 01, 2021 02:30 PM AMBULATORY - PSYCHIATRY [facility] Surgical Procedures: All associated to the encounter This section includes all Surgical Procedures and Surgical Procedure Notes assoc iated to the Encounter. Surgical Procedures This section includes all Surgical Procedures associated to the Encounter. Surgical Procedure Date/Time Procedure Procedure Type Procedure Qualifiers Provider Source Sep 03, 2020 10:36 AM PHONE CALL BY HC PROF 5-10 MIN HC PRO PHON E CALL 5-10 MIN SD SEYMOUR [facility] Surgical Notes There are no notes associated with this procedure. Lab Results: +/- 30 days of the encounter This section includes the Chemistry and Hematology Lab R esults on record with MD for the patient. Radiology Reports and Pathology Report s are provided separately, in subsequent sections. Lab Results This section contains the Chemistry/Hematology Results rafaela t were resulted 30 days before or 30 days after the date of the Encounter. Date/Time Source Result Type Result - Unit Interpretation Reference Range Comment Aug 21, 2020 08:42 AM [facility] RENAL+LIVER PROFILE Specimen Type: SERUM No comment entered. Ordering Provider: JER GARCIA Report Released Date/Time: Aug 12, 2020 01:31 PM Reporting Lab: [address] [phone] Performing Lab: [address] [address] GLUCOSE (FV) 107 mg/dL 70-110 ALBUMIN [...] H .61-1.24 Aug 21, 2020 08:42 AM [facility] TSH () Speci men Type: SERUM No comment entered. Ordering Provider: JER GARCIA Report Released Date/Time: Aug 12, 2020 01:31 PM Reporting Lab: [facility] [address] [place] [id number] Performing Lab: [facility] [address] [facility] 7270 TSH () 3.64 mcIU/mL 0.45-5.33 Aug 21, 2020 08:42 AM [facility] URINALYSIS Speci men Type: URINE No comment entered. Ordering Provider: JER GARCIA Report Released Date/Time: Aug 12, 2020 01:31 PM Reporting Lab: [address] [phone] Performing Lab: [address] [phone] UA COLOR STRAW COLORLESS-YELLOW UA SPEC [...] Gabriel/uL NEG-74 Aug 21, 2020 08:42 AM [facility] CBC Speci men Type: BLOOD No comment entered. Ordering Provider: JER GARCIA Report Released Date/Time: Aug 12, 2020 01:31 PM Reporting Lab: [address] [facility] [id number] Performing Lab: [address] [facility] [phone] MPV (FV) 7.7 fL 7.4-10.4 RDW [...] K/cmm 0.0-0.2 Aug 21, 2020 08:42 AM [facility] GLYCO HGB A1C Speci men Type: BLOOD No comment entered. Ordering Provider: JER GARCIA Report Released Date/Time: Aug 12, 2020 01:31 PM Reporting Lab: [address] [facility] [phone] Performing Lab: [address] [facility] [phone] Glyco Hgb A1C 4.8 % 4.2-5.8 Aug 21, 2020 08:42 AM [facility] LIPID PROFILE Speci men Type: SERUM No comment entered. Ordering Provider: JER GARCIA Report Released Date/Time: Aug 12, 2020 01:31 PM Reporting Lab: [facility] [address] [facility] [phone] Performing Lab: [facility] [address] [facility] [address]5 [address]35 CHOLESTEROL, TOTAL (FV) 145 mg/dL 118-20 0 TRIGLYCERIDE (FV) 107 mg/dL <150 LDL CHOLESTEROL (CALCULATED) 78 HDL CHOLESTEROL (FV) 46 mg/dL >40 Aug 21, 2020 08:42 AM [facility] PSA (FV) Speci men Type: SERUM No comment entered. Ordering Provider: JER GARCIA Report Released Date/Time: Aug 12, 2020 01:31 PM Reporting Lab: [facility] [address] [place] [phone] Performing Lab: [facility] [address] [facility] 7270 PSA (FV) 5.89 ng/mL H 0.0-4.0 [...] and tobacco- related health factors from the MD facility where the Encounter took place. Current Smoking Status This section includes the most current smoking, or tobacco -related health factor, from the MD facility where the Encounter took place. Date/Time Current Smoking Status Comment Facility Oct 14, 2018 01:47 PM VA-TOBACCO QUIT 15 YRS OR MORE [facility] Tobacco Use History This section includes a history of the smoking, or tobacco -related health factors, that were collected on or before the date of the Encoun ter. The data comes from the MD facility where the Encounter took place. Date/Time Smoking Status/Tobacco Use Comment Judith ity Oct 14, 2018 01:47 PM VA-TOBACCO FORMER USER [facility] [place] Oct 14, 2018 01:47 PM MD-TOBACCO QUIT 15 YRS OR MORE [facility] Advance Directives: All historical and [...] Encounter. Date/Time Encounter Note(s) Provider Source Sep 03, 2020 10:36 AM ADMINISTRATIVE NOTE: LOCAL TITLE: HIPAA PRIVACY RELEASE STANDARD TITLE: ADMINISTRATIVE NOTE DATE OF NOTE: SEP 03, 2020@10:36 ENTRY DATE: SEP 03, 2020@10:36:31 AUTHOR: SD SEYMOUR EXP COSIGNER: URGENCY: STATUS: COMPLETED Verbal consent obtained. Date: Aug This release is in effect for a period of 1 year. The following type of information may be discussed: other:all information People authorized to receive above information: : [place] I give permission to provide medical information, my home address, and my phone number in the coordination of my home health care: YES I give permission for message (including medical information) to be left on my answering machine: Yes /mauri/ SD SEYMOUR RN, BSN, CRRN PRIMARY CARE REGISTERED NURSE-RYAN Signed: 09/03/2020 10:37 SD SEYMOUR [facility]
--- OUTSIDE RECORDS SUMMARY | 2021-02-26 00:35 | XMS REPORT | Encounter Summary ---
Author Author Department [facility] MAYI ruth Organization Department of [facility] Address Unknown Phone Unavailable Care Team Providers Care Tool Repairer Bench Name Role Phone JER GARCIA PCP Unavailable [...] Name Patient's Relationship to Policy Baeza AETNA [facility] (WNR) MEDICARE ADVANTAGE [facility](WNR) Jul 18, 2019 00 0003-[place] [id number] MAYI ONEAL PATIENT [facility] (WNR) MEDICARE ADVANTAGE [facility] (WNR) Jul 18, 2012 [id number] MAYI ONEAL PATIENT [facility] (WNR) MEDICARE ADVANTAGE [facility]CR (WNR) Jul 18, 2012 [id number] MAYI ONEAL PATIENT [facility] (WNR) MEDICARE ADVANTAGE [facility] (WNR) Jul 18, 2012 [id number] MAYI ONEAL PATIENT MEDICARE (WNR) MEDICARE (M) PART B Jul 18, 2009 PART B [id number] MAYI ONEAL PATIENT MEDICARE (WNR) MEDICARE (M) PART B Jul 18, 2009 PART B [id number] [phone] MAYI ONEAL PATIENT MEDICARE (WNR) MEDICARE (M) PART A Oct 16, 2008 PART A [id number] MAYI ONEAL PATIENT MEDICARE (WNR) MEDICARE (M) PART A Oct 16, 2008 PART A [id number] [phone] MAYI ONEAL PATIENT MEDICARE PART D (WNR) MEDICARE (M) PART D Jul 18, 2015 PART D [id number] [place] PATIENT MEDICARE PART D (WNR) MEDICARE (M) PART D Jul 18, 2015 PART D [id number] MAYI ONEAL PATIENT MEDICARE PART D (WNR) MEDICARE (M) PART D Jul 18, 2012 PART D [id number] MAYI ONEAL PATIENT MEDICARE PART D (WNR) MEDICARE (M) PART D Jul 18, 2012 PART D [id number] MAYI ONEAL PATIENT Selected Encounter This section includes the information on record at [place] for the Encounter. Date/Time Encounter Type Encounter Description Reason Provider Source Sep 11, 2020 07:00 AM Outpatient Encounter COMMUNITY CARE CONSULT IHE Encounter Template Text not used by [place] Assessments - Encounter Diagnoses No Data Provided [...] 2020 12:00 PM AMBULATORY - MEDICINE [facility] Oct 02, 2020 02:00 PM AMBULATORY - PSYCHIATRY [facility] Oct 23, 2020 02:00 PM AMBULATORY - PSYCHIATRY [facility] Oct 30, 2020 08:00 AM [facility] N[facility] November 20, 2020 02:00 PM AMBULATORY - PSYCHIATRY [facility] November 27, 2020 02:25 PM AMBULATORY - NONE [facility] Dec 29, 2020 10:00 AM AMBULATORY - NONE [facility] Jan 01, 2021 02:30 PM [facility] Surgical Procedures: All associated to the encounter No Data Provided for This Section Lab Results: +/- 30 days of the encounter This section includes the Chemistry and Hematology Lab R esults on record with [place] for the patient. Radiology Reports and Pathology Report s are provided separately, in subsequent sections. Lab Results This section contains the Chemistry/Hematology Results rafaela t were resulted 30 days before or 30 days after the date of the Encounter. Date/Time Source Result Type Result - Unit Interpretation Reference Range Comment Aug 21, 2020 08:42 AM [facility] RENAL+LIVER PROFILE Specimen Type: SERUM No comment entered. Ordering Provider: JER GARCIA Report Released Date/Time: Aug 12, 2020 01:31 PM Reporting Lab: [address] [phone] Performing Lab: [address] [phone] GLUCOSE (FV) 107 mg/dL 70-110 ALBUMIN [...] H .61-1.24 Aug 21, 2020 08:42 AM [facility] TSH (FV) Speci men Type: SERUM No comment entered. Ordering Provider: JER GARCIA Report Released Date/Time: Aug 12, 2020 01:31 PM Reporting Lab: [facility] [address] [facility] 7270 Performing Lab: [facility] [address] [facility] 7270 TSH (FV) 3.64 mcIU/mL 0.45-5.33 Aug 21, 2020 08:42 AM [facility] URINALYSIS Speci men Type: URINE No comment entered. Ordering Provider: JER GARCIA Report Released Date/Time: Aug 12, 2020 01:31 PM Reporting Lab: [address] [phone] Performing Lab: [address] [phone] UA COLOR STRAW COLORLESS-YELLOW UA SPEC [...] Gabriel/uL NEG-74 Aug 21, 2020 08:42 AM [facility] CBC Speci men Type: BLOOD No comment entered. Ordering Provider: JER GARCIA Report Released Date/Time: Aug 12, 2020 01:31 PM Reporting Lab: [address] [phone] Performing Lab: [address] [phone] MPV (FV) 7.7 fL 7.4-10.4 RDW [...] K/cmm 0.0-0.2 Aug 21, 2020 08:42 AM [facility] GLYCO HGB A1C Speci men Type: BLOOD No comment entered. Ordering Provider: JER GARCIA Report Released Date/Time: Aug 12, 2020 01:31 PM Reporting Lab: [address] [place] [address]0 [address]35 Performing Lab: [address] [place] [address] Glyco Hgb A1C 4.8 % 4.2-5.8 Aug 21, 2020 08:42 AM [facility] LIPID PROFILE Speci men Type: SERUM No comment entered. Ordering Provider: JER GARCIA Report Released Date/Time: Aug 12, 2020 01:31 PM Reporting Lab: [address] [place] [address]35 Performing Lab: [address] [place] [address] CHOLESTEROL, TOTAL (FV) 145 mg/dL 118-20 0 TRIGLYCERIDE (FV) 107 mg/dL <150 LDL CHOLESTEROL (CALCULATED) 78 HDL CHOLESTEROL (FV) 46 mg/dL >40 Aug 21, 2020 08:42 AM [facility] PSA (FV) Speci men Type: SERUM No comment entered. Ordering Provider: JER GARCIA Report Released Date/Time: Aug 12, 2020 01:31 PM Reporting Lab: [facility] [place] [facility] [address] [place] [address]270 Performing Lab: [facility] [place] [facility] [address] [place] 7270 PSA (FV) 5.89 [...] Encounter. Date/Time Encounter Note(s) Provider Source Sep 11, 2020 07:00 AM NONVA NOTE: LOCAL TITLE: COMMUNITY CARE-COORDINATION PLAN STANDARD TITLE: NONVA NOTE DATE OF NOTE: SEP 11, 2020@07:00 ENTRY DATE: SEP 11, 2020@07:00:37 AUTHOR: HEBER BORRERO COSIGNER: URGENCY: STATUS: COMPLETED [facility] Community Care Office Care Coordination Plan Note Last Name: Bud [place] First Name: Gene [place] Social: [id number] Chief Complaint:NA Risks (e.g. clinical or biophysical risks identified from S/T tool or brief chart review, such as dementia, homelessness, no family support, etc. If unknown, state "Unknown"): Level of Care Coordination: Basic Addenda Included (please enter "Yes" if this note includes any of the following): Case Management: Continued Stay Review: Disease Management: Discharge Planning: Patient Contact: Provider Contact: Transfer: FACILITY COMMUNITY CARE OFFICE CONTACT Care Coordination Point of Contact: HEBER BORRERO EXT:[phone] 'S?CAREGIVER?CONTACT INFO Is [place]'s caregiver same as next of kin listed in the demographic section of CPRS (Yes/No)?: If no, provide the following: 's Caregiver Point of Contact: Caregiver's Relationship to : Caregiver's Primary Phone Number: Caregiver's Alternate Phone Number: CONSULT AND REFERRAL INFORMATION Name of Referring [place] Provider: JER Tompkins [facility] Ref[facility] Number: [id number] Unique Consult ID: [id number] Patient Admitted (Yes/No): If yes, then please complete?the Discharge?Planning Addendum. APPOINTMENT MANAGEMENT / MEDICAL RECORDS Appointment Community Provider/Facility: [facility] Appointment Care Site/Location: [address], [id number] Appointment Date: 10/31/2020 Appointment Status:SCHEDULED Appointment Provider Name: [facility] Appointment Provider Treating Specialty: Multi-Specialty Appointment Provider Appointment Provider Email: Recommended Services: Level of Care Coordination: Basic* Navigation Scheduling Post-Appointment Follow-Up E-Communication to referring provider Level of Care Coordination: Moderate Basic Care Coordination Services* Monitoring and coordination of rehab/PT services Direct communication to referring provider Care management, if appropriate Level of Care Coordination: Complex Moderate Care Coordination Services Case management, if appropriate Direct communication with interdisciplinary team Level of Care Coordination: Urgent/Time Sensitive Immediate facilitation of requested services and direct communication with the [place] providers PLAN: PENDING MEDICAL RECORDS /mauri/ HEBER CROUCH Advanced Medical Support Asst Signed: 09/11/2020 07:00 HEBER BORRERO [facility]
--- OUTSIDE RECORDS SUMMARY | 2021-02-26 00:36 | XMS REPORT | Encounter Summary ---
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 Phone JER GARCIA PCP [...] CARE SYSTEM(WNR) Jul 18, 2019 00 0003-[place] [id number] MAYI ONEAL PATIENT COVENTRY MCR (WNR) MEDICARE ADVANTAGE [facility] (WNR) Jul 18, 2012 [id number] MAYI ONEAL PATIENT COVENTRY MCR (WNR) MEDICARE ADVANTAGE MCR (WNR) Jul 18, 2012 [id number] MAYI ONEAL PATIENT COVENTRY MCR (WNR) MEDICARE ADVANTAGE [facility] (WNR) Jul 18, 2012 [id number] MAYI ONEAL PATIENT MEDICARE (WNR) MEDICARE (M) PART B Jul 18, 2009 PART B [id number] MAYI ONEAL PATIENT MEDICARE (WNR) MEDICARE (M) PART B Jul 18, 2009 PART B [id number] [phone] MAYI ONEAL PATIENT MEDICARE (WNR) MEDICARE (M) PART A Oct 16, 2008 PART A [id number] MAYI ONEAL PATIENT MEDICARE (WNR) MEDICARE (M) PART A Oct 16, 2008 PART A [id number] [phone] MAYI ONEAL PATIENT MEDICARE PART D (WNR) MEDICARE (M) PART D Jul 18, 2015 PART D [id number] JMGENE PATIENT MEDICARE PART D (WNR) MEDICARE (M) PART D Jul 18, 2015 PART D [id number] MAYI ONEAL PATIENT MEDICARE PART D (WNR) MEDICARE (M) PART D Jul 18, 2012 PART D [id number] MAYI ONEAL PATIENT MEDICARE PART D (WNR) MEDICARE (M) PART D Jul 18, 2012 PART D [id number] MAYI ONEAL PATIENT Selected Encounter This section includes the information on record at [facility] for the Encounter. Date/Time Encounter Type Encounter Description Reason Provider Source Apr 21, 2020 12:00 AM Outpatient Encounter COMMUNITY CARE CONSULT IHE Encounter Template Text not used by [facility] Assessments - Encounter Diagnoses No Data Provided for This Section Plan of Treatment: Future Appointments (+ 6 months) and Future Tests (+/- 45 day s) The Plan of Treatment section includes future care activities for the patient fr om all [facility] treatment facilities. This section includes future appointments and fu ture orders which are active, pending or scheduled. Future Appointments This section includes appointments that were scheduled t o occur 6 months from the date of the Encounter, up to a maximum of 20 appointme nts. The data comes from all [facility] treatment facilities. Appointment Date/Time Appointment Type Appointment Facili ty Name May 19, 2020 02:30 PM AMBULATORY - MEDICINE [facility] Jun 16, 2020 10:30 AM AMBULATORY - PSYCHIATRY [facility] Aug 21, 2020 09:00 AM AMBULATORY - NONE [facility] Aug 21, 2020 04:00 PM AMBULATORY - MEDICINE [facility] Aug 28, 2020 09:00 AM AMBULATORY - MEDICINE [facility] Oct 01, 2020 12:00 PM AMBULATORY - MEDICINE [facility] Oct 02, 2020 02:00 PM AMBULATORY - PSYCHIATRY [facility] Surgical Procedures: All associated to the [...] and tobacco- related health factors from the [facility] facility where the Encounter took place. Current Smoking Status This section includes the most current smoking, or tobacco -related health factor, from the [facility] facility where the Encounter took place. Date/Time Current Smoking Status Comment Facility Jun 18, 2013 01:14 PM V16 TOBACCO USE SCREEN [facility] Tobacco Use History This section includes a history of the smoking, or tobacco -related health factors, that were collected on or before the date of the Encoun ter. The data comes from the [facility] facility where the Encounter took place. Date/Time Smoking Status/Tobacco Use Comment [facility] Jun 18, 2013 01:14 PM [...] Encounter. 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
--- OUTSIDE RECORDS SUMMARY | 2021-02-26 00:36 | XMS REPORT | Encounter Summary ---
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 Name Role Phone JER GARCIA PCP [...] Name Patient's Relationship to Policy Bae[place] [employer] (WNR) MEDICARE ADVANTAGE [employer](WNR) Jul 18, 2019 00 0003-[place] [id number] MAYI ONEAL PATIENT COVENTRY MCR (WNR) MEDICARE ADVANTAGE [employer] (WNR) Jul 18, 2012 [id number] MAYI ONEAL PATIENT COVENTRY MCR (WNR) MEDICARE ADVANTAGE MCR (WNR) Jul 18, 2012 [id number] MAYI ONEAL PATIENT COVENTRY MCR (WNR) MEDICARE ADVANTAGE [employer] (WNR) Jul 18, 2012 [id number] MAYI ONEAL PATIENT MEDICARE (WNR) MEDICARE (M) PART B Jul 18, 2009 PART B [id number] MAYI ONEAL PATIENT MEDICARE (WNR) MEDICARE (M) PART B Jul 18, 2009 PART B [id number] [phone] MAYI ONEAL PATIENT MEDICARE (WNR) MEDICARE (M) PART A Oct 16, 2008 PART A [id number] MAYI ONEAL PATIENT MEDICARE (WNR) MEDICARE (M) PART A Oct 16, 2008 PART A [id number] [phone] MAYI ONEAL PATIENT MEDICARE PART D (WNR) MEDICARE (M) PART D Jul 18, 2015 PART D [id number] JMGENE PATIENT MEDICARE PART D (WNR) MEDICARE (M) PART D Jul 18, 2015 PART D [id number] MAYI ONEAL PATIENT MEDICARE PART D (WNR) MEDICARE (M) PART D Jul 18, 2012 PART D [id number] MAYI ONEAL PATIENT MEDICARE PART D (WNR) MEDICARE (M) PART D Jul 18, 2012 PART D [id number] MAYI ONEAL PATIENT Selected Encounter This section includes the information on record at [facility] for the Encounter. Date/Time Encounter Type Encounter Description Reason Provider Source Aug 12, 2020 01:21 PM Outpatient Encounter PRIMARY CARE/MEDICINE IHE Encounter Template Text not used by [facility] Assessments - Encounter Diagnoses No Data Provided for This Section Plan of Treatment: Future Appointments (+ 6 months) and Future Tests (+/- 45 day s) The Plan of Treatment section includes future care activities for the patient fr om all [place] treatment facilities. This section includes future appointments and fu ture orders which are active, pending or scheduled. Future Appointments This section includes appointments that were scheduled t o occur 6 months from the date of the Encounter, up to a maximum of 20 appointme nts. The data comes from all [place] treatment facilities. Appointment Date/Time Appointment Type Appointment Facili ty Name Aug 21, 2020 09:00 AM AMBULATORY - NONE [facility] Aug 21, 2020 04:00 PM AMBULATORY - MEDICINE [facility] Aug 28, 2020 09:00 AM AMBULATORY - MEDICINE [facility] Oct 01, 2020 12:00 PM AMBULATORY - MEDICINE [facility] Oct 02, 2020 02:00 PM AMBULATORY - PS[facility]CHIATRY [facility] Oct 23, 2020 02:00 PM AMBULATORY - PS[facility]IATRY [facility] Oct 30, 2020 08:00 AM AMBULATORY - NONE [facility] November 20, 2020 02:00 PM AMBULATORY - PS[facility]CHIATRY [facility] November 27, 2020 02:25 PM AMBULATORY - NONE [facility] Dec 29, 2020 10:00 AM AMBULATORY - NONE [facility] Jan 01, 2021 02:30 PM AMBULATORY - PSYCHIATRY [facility] Surgical Procedures: All associated to the encounter No Data Provided for This Section Lab Results: +/- 30 days of the encounter This section includes the Chemistry and Hematology Lab R esults on record with [facility] for the patient. Radiology Reports and Pathology Report s are provided separately, in subsequent sections. Lab Results This section contains the Chemistry/Hematology Results rafaela t were resulted 30 days before or 30 days after the date of the Encounter. Date/Time Source Result Type Result - Unit Interpretation Reference Range Comment Aug 21, 2020 08:42 AM [facility] RENAL+LIVER PROFILE Specimen Type: SERUM No comment entered. Ordering Provider: JER GARCIA Report Released Date/Time: Aug 12, 2020 01:31 PM Reporting Lab: [address] [phone] Performing Lab: [address] [phone] GLUCOSE (FV) 107 mg/dL 70-110 ALBUMIN [...] H .61-1.24 Aug 21, 2020 08:42 AM [facility] TSH (FV) Speci men Type: SERUM No comment entered. Ordering Provider: JER GARCIA Report Released Date/Time: Aug 12, 2020 01:31 PM Reporting Lab: [facility] [address] [place] [id number] Performing Lab: [facility] [address] [place] [id number] TSH (FV) 3.64 mcIU/mL 0.45-5.33 Aug 21, 2020 08:42 AM [facility] URINALYSIS Speci men Type: URINE No comment entered. Ordering Provider: JER GARCIA Report Released Date/Time: Aug 12, 2020 01:31 PM Reporting Lab: [address] [id number] Performing Lab: [address] [phone] UA COLOR STRAW COLORLESS-YELLOW UA SPEC [...] Gabriel/uL NEG-74 Aug 21, 2020 08:42 AM [facility] CBC Speci men Type: BLOOD No comment entered. Ordering Provider: JER GARCIA Report Released Date/Time: Aug 12, 2020 01:31 PM Reporting Lab: [address] [phone] Performing Lab: [address] [id number] MPV (FV) 7.7 fL 7.4-10.4 RDW [...] K/cmm 0.0-0.2 Aug 21, 2020 08:42 AM [facility] GLYCO HGB A1C Speci men Type: BLOOD No comment entered. Ordering Provider: JER GARCIA Report Released Date/Time: Aug 12, 2020 01:31 PM Reporting Lab: [address] [id number] Performing Lab: [address] [id number] Glyco Hgb A1C 4.8 % 4.2-5.8 Aug 21, 2020 08:42 AM [facility] LIPID PROFILE Speci men Type: SERUM No comment entered. Ordering Provider: JER GARCIA Report Released Date/Time: Aug 12, 2020 01:31 PM Reporting Lab: [address] [phone] Performing Lab: [address] [phone] CHOLESTEROL, TOTAL (FV) 145 mg/dL 118-20 0 TRIGLYCERIDE (FV) 107 mg/dL <150 LDL CHOLESTEROL (CALCULATED) 78 HDL CHOLESTEROL (FV) 46 mg/dL >40 Aug 21, 2020 08:42 AM [facility] PSA (FV) Speci men Type: SERUM No comment entered. Ordering Provider: JER GARCIA Report Released Date/Time: Aug 12, 2020 01:31 PM Reporting Lab: [facility] [address] [id number] Performing Lab: [facility] [address] [facility] 7270 PSA (FV) 5.89 ng/mL H 0.0-4.0 [...] and tobacco- related health factors from the [facility] facility where the Encounter took place. Current Smoking Status This section includes the most current smoking, or tobacco -related health factor, from the [facility] facility where the Encounter took place. Date/Time Current Smoking Status Comment Facility Jun 18, 2013 01:14 PM V16 TOBACCO USE SCREEN [facility] Tobacco Use History This section includes a history of the smoking, or tobacco -related health factors, that were collected on or before the date of the Encoun ter. The data comes from the [place] facility where the Encounter took place. Date/Time Smoking Status/Tobacco Use Comment [facility] Jun 18, 2013 01:14 PM V16 [...] the Encounter. Date/Time Encounter Note(s) Provider Source Aug 12, 2020 01:21 PM ADMINISTRATIVE NOTE: LOCAL TITLE: SCHEDULING NOTE STANDARD TITLE: ADMINISTRATIVE NOTE DATE OF NOTE: AUG 12, 2020@13:21 ENTRY DATE: AUG 12, 2020@13:21:29 AUTHOR: CAROLINA,JOSE DE JESUS EXP COSIGNER: URGENCY: STATUS: COMPLETED Per Order dated: 08/29/2019 Spoke with [place] about scheduling recall RTC as follows: "08/29/2019 12:02 New Order entered by JER GARCIA (THO) Order Text: Return to [facility] 4 on or around ( Aug 23, 2020 ) for a total of 1 appointment(s) Prerequisites: LABS (Fasting), CBC, Glyco-HGB A1C, Lipid Profile, PSA, Renal/Liver, TSH, Urinalysis Nature of Order: ELECTRONICALLY ENTERED Elec Signature: JER GARCIA (GARNETTER) on 08/29/2019 12:04" [place] agreeable to #tele#, scheduled August 28 @ 9:00am. Fasting lab appt scheduled August 21 @ 9:00am. Author's phone extension: [phone] /es/ JOSE DE JESUS FIGUEROA Signed: 08/12/2020 13:29 JOSE DE JESUS FIGUEROA [facility]
--- OUTSIDE RECORDS SUMMARY | 2021-02-26 00:36 | XMS REPORT | Encounter Summary ---
[facility] Address Unknown Phone Unavailable Care Team Providers Care Patient Account Analyst Name Role Phone JER GARCIA PCP [...] BEHAVIORAL HEALTH(R) Jul 18, 2019 00 [id number] [id number] MAYI ONEAL PATIENT [facility] (WNR) MEDICARE ADVANTAGE [facility] (WNR) Jul 18, 2012 [id number] MAYI ONEAL [facility] (WNR) MEDICARE ADVANTAGE [facility] (WNR) Jul 18, 2012 [id number] MAYI ONEAL [facility] (WNR) MEDICARE ADVANTAGE [facility] (WNR) Jul 18, 2012 [id number] MAYI ONEAL PATIENT MEDICARE (WNR) MEDICARE (M) PART B Jul 18, 2009 PART B [id number] MYAI ONEAL PATIENT MEDICARE (WNR) MEDICARE (M) PART B Jul 18, 2009 PART B [id number] [id number] MAYI ONEAL PATIENT MEDICARE (WNR) MEDICARE (M) PART A Oct 16, 2008 PART A [id number] MAYI ONEAL PATIENT MEDICARE (WNR) MEDICARE (M) PART A Oct 16, 2008 PART A [id number] MAYI ONEAL PATIENT MEDICARE PART D (WNR) MEDICARE (M) PART D Jul 18, 2015 PART D [id number] MAYI ONEAL PATIENT MEDICARE PART D (WNR) MEDICARE (M) PART D Jul 18, 2015 PART D [id number] MAYI ONEAL PATIENT MEDICARE PART D (WNR) MEDICARE (M) PART D Jul 18, 2012 PART D [id number] MAYI ONEAL PATIENT MEDICARE PART D (WNR) MEDICARE (M) PART D Jul 18, 2012 PART D [id number] MAYI ONEAL PATIENT Selected Encounter This section includes the information on record at [place] for the Encounter. Date/Time Encounter Type Encounter Description Reason Provider Source Aug 28, 2020 09:00 AM Outpatient Encounter TELEPHONE PRIMARY CAR E ICD-10-CM F33.9 Major depressive disorder, recurrent, unspecified with Provider Comments: Depression ([facility] [id number]) JER GARCIA Reny Encounter Template Text not used by [facility] Assessments - Encounter Diagnoses This section includes the primary and secondary diag noses documented for the Encounter. Date/Time Primary/Secondary Diagnosis Diagnosis Name Provider Source Aug 28, 2020 09:00 AM PRIMARY Major depressive disorder, recurrent, unspecified JER GARCIA [facility] Aug 28, 2020 09:00 AM SECONDARY Elevated prostate specific antigen [PSA] JER GARCIA [facility] Aug 28, 2020 09:00 AM SECONDARY Hyperlipidemia, unspecified JER GARCIA [facility] Aug 28, 2020 09:00 AM SECONDARY Parkinson's disease JER GARCIA [facility] Aug 28, 2020 09:00 AM SECONDARY Retention of urine, unspecified JER GARCIA [facility] Plan of Treatment: Future Appointments (+ 6 months) and Future Tests (+/- 45 day s) The Plan of Treatment section includes future care activities for the patient fr om all [place] treatment facilities. This section includes future appointments and fu ture orders which are active, pending or scheduled. Future Appointments This section includes appointments that were scheduled t o occur 6 months from the date of the Encounter, up to a maximum of 20 appointme nts. The data comes from all [facility]. Appointment Date/Time Appointment Type Appointment Facili ty Name Oct 01, 2020 12:00 PM AMBULATORY - MEDICINE [facility] Oct 02, 2020 02:00 PM AMBULATORY - PSYCHIATRY [facility] Oct 23, 2020 02:00 PM AMBULATORY - PSY[facility]IATRY [facility] Oct 30, 2020 08:00 AM AMBULATORY - NONE [facility] November 20, 2020 02:00 PM AMBULATORY - PSYCHIATRY [facility] November 27, 2020 02:25 PM AMBULATORY - NONE [facility] Dec 29, 2020 10:00 AM AMBULATORY - NONE [facility] Jan 01, 2021 02:30 PM AMBULATORY - PSYCHIATRY [facility] Surgical Procedures: All associated to the encounter No Data Provided for This Section Lab Results: +/- 30 days of the encounter This section includes the Chemistry and Hematology Lab R esults on record with [place] for the patient. Radiology Reports and Pathology Report s are provided separately, in subsequent sections. Lab Results This section contains the Chemistry/Hematology Results rafaela t were resulted 30 days before or 30 days after the date of the Encounter. Date/Time Source Result Type Result - Unit Interpretation Reference Range Comment Aug 21, 2020 08:42 AM [facility] RENAL+LIVER PROFILE Specimen Type: SERUM No comment entered. Ordering Provider: JER GARCIA Report Released Date/Time: Aug 12, 2020 01:31 PM Reporting Lab: [address] [phone] Performing Lab: [address] [id number] GLUCOSE (FV) 107 mg/dL 70-110 ALBUMIN [...] H .61-1.24 Aug 21, 2020 08:42 AM [facility] TSH () Speci men Type: SERUM No comment entered. Ordering Provider: JER GARCIA Report Released Date/Time: Aug 12, 2020 01:31 PM Reporting Lab: [facility] [address] [place] [id number] Performing Lab: [facility] [address] [place] [id number] TSH () 3.64 mcIU/mL 0.45-5.33 Aug 21, 2020 08:42 AM [facility] URINALYSIS Speci men Type: URINE No comment entered. Ordering Provider: JER GARCIA Report Released Date/Time: Aug 12, 2020 01:31 PM Reporting Lab: [address] [phone] Performing Lab: [address] [phone] UA COLOR STRAW COLORLESS-YELLOW UA SPEC [...] Gabriel/uL NEG-74 Aug 21, 2020 08:42 AM [facility] CBC Speci men Type: BLOOD No comment entered. Ordering Provider: JER GARCIA Report Released Date/Time: Aug 12, 2020 01:31 PM Reporting Lab: [address] [phone] Performing Lab: [address] [phone] MPV (FV) 7.7 fL 7.4-10.4 RDW [...] 0.0-0.2 Aug 21, 2020 08:42 AM [facility] GLYCO HGB A1C Speci men Type: BLOOD No comment entered. Ordering Provider: JER GARCIA Report Released Date/Time: Aug 12, 2020 01:31 PM Reporting Lab: [address] [facility] [phone] Performing Lab: [address] [phone] Glyco Hgb A1C 4.8 % 4.2-5.8 Aug 21, 2020 08:42 AM [facility] LIPID PROFILE Speci men Type: SERUM No comment entered. Ordering Provider: JER GARCIA Report Released Date/Time: Aug 12, 2020 01:31 PM Reporting Lab: [facility] [address] [facility] [phone] Performing Lab: [place] [id number] [facility] [phone] CHOLESTEROL, TOTAL (FV) 145 mg/dL 118-20 0 TRIGLYCERIDE (FV) 107 mg/dL <150 LDL CHOLESTEROL (CALCULATED) 78 HDL CHOLESTEROL (FV) 46 mg/dL >40 Aug 21, 2020 08:42 AM [facility] PSA (FV) Speci men Type: SERUM No comment entered. Ordering Provider: JER GARCIA Report Released Date/Time: Aug 12, 2020 01:31 PM Reporting Lab: [facility] [address] [place] [id number] Performing Lab: [facility] [address] [facility] 7[address] PSA (FV) 5.89 ng/mL H [...] and tobacco- related health factors from the [place] facility where the Encounter took place. Current Smoking Status This section includes the most current smoking, or tobacco -related health factor, from the [place] facility where the Encounter took place. Date/Time Current Smoking Status Comment Facility Oct 14, 2018 01:47 PM VA-TOBACCO QUIT 15 YRS OR MORE [facility] Tobacco Use History This section includes a history of the smoking, or tobacco -related health factors, that were collected on or before the date of the Encoun ter. The data comes from the [place] facility where the Encounter took place. Date/Time Smoking Status/Tobacco Use Comment Facil ity Oct 14, 2018 01:47 PM VA-TOBACCO FORMER USER [facility] Oct 14, 2018 01:47 PM VA-TOBACCO QUIT 15 YRS OR MORE CARMELINA Richardson [facility] Advance Directives: All historical and [...] Encounter. Date/Time Encounter Note(s) Provider Source Aug 28, 2020 09:11 AM MEDICATION MGT NOTE: LOCAL TITLE: MEDICATION RECONCILIATION (PROVIDER) STANDARD TITLE: MEDICATION MGT NOTE DATE OF NOTE: AUG 28, 2020@09:11 ENTRY DATE: AUG 28, 2020@09:12 AUTHOR: JER GARCIA COSIGNER: URGENCY: STATUS: COMPLETED Medication Reconciliation COMPLETED (Outpatient): The following medication additions, deletions, dosage changes, OR duplications were identified and discussed with patient/caregiver. Specify: see note Copy of Medication Reconciliation note and Patient Medication Information Cover Sheet provided to and reviewed with patient/caregiver. Remote and Local Allergies: FACILITY ALLERGY/ADR -------- No Remote Allergy/ADR Data available for this patient [facility] ERYTHROMYCIN [facility] FINASTERIDE [facility] GABAPENTIN [facility] SIMVASTATIN [facility] VENLAFAXINE A list of active outpatient prescriptions dispensed from this local [place] and dispensed remotely from another [place] or [facility] facility as well as local, pending and active inpatient orders, local clinic medications, locally documented non-VA medications, and local prescriptions that have or been discontinued in the past 90 days has been generated below. If the list for review does not include a component, then it was not applicable to this patient. MEDICATIONS: Active and Recently Outpatient Medications (including Supplies): Issue Date Status Last Fill Active Outpatient Medications Refills Expiration 1) ATORVASTATIN 20MG TAB Qty: 45 for 90 ACTIVE (S) Issu:07-02-20 days Sig: TAKE ONE-HALF TABLET BY Refills: 2 Last:09-20-20 MOUTH AT BEDTIME FOR CHOLESTEROL - DO Expr:07-03-21 NOT TAKE WITH GRAPEFRUIT JUICE 2) BENZTROPINE MESYLATE 2MG TAB Qty: 90 ACTIVE Issu:10-15-19 for 90 days Sig: TAKE ONE-HALF TABLET Refills: 1 Last:11-13-19 BY MOUTH TWICE A DAY Expr:10-15-20 3) DUTASTERIDE 0.5MG CAP *HD* Qty: 90 for ACTIVE (S) Issu:06-30-20 90 days Sig: TAKE ONE CAPSULE BY Refills: 3 Last:09-28-20 MOUTH ONCE DAILY REPLACES Expr:07-01-21 FINASTERIDE FOR PROSTATE (CONSULT APPROVED) 4) ESCITALOPRAM 10MG TAB Qty: 225 for 90 ACTIVE Issu:06-16-20 days Sig: TAKE TWO AND ONE-HALF Refills: 1 Last:06-16-20 TABLETS BY MOUTH EVERY MORNING Expr:06-17-21 5) LORAZEPAM 0.5MG TAB Qty: 30 for 30 days ACTIVE Issu:06-16-20 Sig: TAKE ONE-HALF TABLET BY MOUTH Refills: 0 Last:08-05-20 TWICE A DAY NEEDED -(MAY CAUSE Expr:12-17-20 DROWSINESS) 6) QUETIAPINE 300MG TAB Qty: 30 for 30 ACTIVE Issu:06-16-20 days Sig: TAKE ONE TABLET BY MOUTH Refills: 1 Last:08-31-20 EVERY MORNING FOR MOOD Expr:06-17-21 Issue Date Status Last Fill Inactive Outpatient Medications Refills Expiration 1) ARIPIPRAZOLE 20MG TAB Qty: 45 for 90 DISCONTINUED Issu:04-07-20 days Sig: TAKE ONE-HALF TABLET BY (EDIT) Last:07-12-20 MOUTH ONCE DAILY Refills: 2 Expr:04-08-21 2) ARIPIPRAZOLE 20MG TAB Qty: 45 for 90 DISCONTINUED Issu:10-15-19 days Sig: TAKE ONE-HALF TABLET BY Refills: 0 Last:04-13-20 MOUTH ONCE DAILY Expr:10-15-20 3) ARIPIPRAZOLE 5MG TAB Qty: 31 for 30 Issu:04-11-20 days Sig: TAKE TWO TABLETS BY MOUTH Refills: 0 Last:04-11-20 EVERY MORNING FOR 7 DAYS, THEN TAKE Expr:05-11-20 ONE TABLET EVERY MORNING FOR 10 DAYS, THEN TAKE ONE-HALF TABLET EVERY MORNING 4) ATORVASTATIN 20MG TAB Qty: 45 for 90 DISCONTINUED Issu:06-25-19 days Sig: TAKE ONE-HALF TABLET BY Refills: 0 Last:04-08-20 MOUTH AT BEDTIME FOR CHOLESTEROL - DO Expr:06-25-20 NOT TAKE WITH GR[employer] JUICE 5) BENZTROPINE 0.5MG TAB Qty: 60 for 30 DISCONTINUED Issu:07-24-19 days Sig: TAKE ONE TABLET BY MOUTH (EDIT) Last:08-25-19 TWICE A DAY Refills: 2 Expr:07-24-20 6) BENZTROPINE 0.5MG TAB Qty: 60 for 30 DISCONTINUED Issu:06-06-19 days Sig: TAKE ONE TABLET BY MOUTH Refills: 0 Last:07-26-19 TWICE A DAY Expr:06-06-20 7) BENZTROPINE MESYLATE 2MG TAB Qty: 30 DISCONTINUED Issu:10-15-19 for 30 days Sig: TAKE ONE-HALF TABLET Refills: 5 Last:11-13-19 BY MOUTH TWICE A DAY Expr:10-15-20 8) DUTASTERIDE 0.5MG CAP *HD* Qty: 30 for DISCONTINUED Issu:09-21-19 30 days Sig: TAKE ONE CAPSULE BY Refills: 11 Last:09-24-19 MOUTH ONCE DAILY REPLACES Expr:09-21-20 FINASTERIDE FOR PROSTATE (CONSULT APPROVED) 9) ESCITALOPRAM 10MG TAB Qty: 45 for 90 DISCONTINUED Issu:02-11-20 days Sig: TAKE ONE-HALF TABLET BY (EDIT) Last:02-11-20 MOUTH ONCE DAILY Refills: 0 Expr:05-11-20 10) ESCITALOPRAM 20MG TAB Qty: 72 for 75 DISCONTINUED Issu:04-11-20 days Sig: TAKE ONE-HALF TABLET BY (EDIT) Last:04-11-20 MOUTH EVERY MORNING FOR 7 DAYS, THEN Refills: 0 Expr:06-25-20 TAKE ONE TABLET EVERY MORNING 11) FLUOXETINE HCL 20MG CAP Qty: 30 for 30 DISCONTINUED Issu:06-06-19 days Sig: TAKE ONE CAPSULE BY MOUTH Refills: 2 Last:07-13-19 ONCE DAILY Expr:06-06-20 12) LAMOTRIGINE 200MG TAB Qty: 15 for 30 DISCONTINUED Issu:11-13-19 days Sig: TAKE ONE-HALF TABLET BY Refills: 1 Last:01-02-20 MOUTH ONCE DAILY FOR SEIZURES -(NOVEMBER Expr:11-13-20 CAUSE DROWSINESS) 13) PANTOPRAZOLE NA 20MG EC TAB Qty: 90 for Issu:05-04-19 90 days Sig: TAKE ONE TABLET BY MOUTH Refills: 2 Last:07-23-19 EVERY MORNING FOR THE STOMACH Expr:05-04-20 14) QUETIAPINE 300MG TAB Qty: 30 for 30 DISCONTINUED Issu:04-11-20 days Sig: TAKE ONE TABLET BY MOUTH Refills: 1 Last:06-08-20 EVERY MORNING FOR MOOD Expr:04-12-21 15) QUETIAPINE 300MG TAB Qty: 90 for 90 DISCONTINUED Issu:11-12-19 days Sig: TAKE ONE TABLET BY MOUTH AT (EDIT) Last:01-24-20 BEDTIME FOR MOOD Refills: 1 Expr:11-12-20 16) QUETIAPINE 300MG TAB Qty: 90 for 90 DISCONTINUED Issu:08-07-19 days Sig: TAKE ONE TABLET BY MOUTH AT Refills: 0 Last:11-05-19 BEDTIME FOR MOOD Expr:08-07-20 17) QUETIAPINE 400MG TAB Qty: 3 for 8 days DISCONTINUED Issu:02-11-20 Sig: TAKE ONE-HALF TABLET BY MOUTH AT (EDIT) Last:02-12-20 BEDTIME FOR 4 DAYS, THEN TAKE Refills: 2 Expr:02-11-21 ONE-FOURTH TABLET AT BEDTIME FOR 4 DAYS FOR MOOD TAKE 200MG 4 DAYS AND THEN 100MG FOR 4 DAYS 18) QUETIAPINE 400MG TAB Qty: 90 for 90 DISCONTINUED Issu:01-24-20 days Sig: TAKE ONE TABLET BY MOUTH AT (EDIT) Last:01-24-20 BEDTIME FOR MOOD Refills: 2 Expr:01-24-21 19) SERTRALINE 100MG TAB Qty: 15 for 30 DISCONTINUED Issu:08-07-19 days Sig: TAKE ONE-HALF TABLET BY Refills: 0 Last:09-26-19 MOUTH EVERY MORNING Expr:08-07-20 20) TRAZODONE 100MG TAB Qty: 30 for 30 days DISCONTINUED Issu:02-11-20 Sig: TAKE ONE-HALF TO ONE TABLET(S) BY Refills: 0 Last:03-03-20 MOUTH AT BEDTIME SLEEP Expr:02-11-21 Start Date Active Non-VA Medications Refills Expiration 1) Non-VA ACETAMINOPHEN 325MG TAB Sig: ACTIVE 650MG MOUTH THREE TIMES A DAY NEEDED 2) Non-VA CARBIDOPA 25/LEVODOPA 100MG UD ACTIVE TAB Si TABLET (25/100) MOUTH THREE TIMES DAILY 3) Non-VA GARLIC (OTC) Si CAPSULES ACTIVE MOUTH ONCE DAILY 4) Non-VA MULTIVITAMIN CAP/TAB Si ACTIVE CAP/TAB MOUTH 5) Non-VA NON-VA DRUG ASSESSMENT DONE ACTIVE CAP/TAB Sig: MOUTH 6) Non-VA OMEGA-3 ACID CAP,ORAL Sig: ACTIVE MOUTH 7) Non-VA UNKNOWN HERBAL/DRUG(PutNameIn ACTIVE Comments CAP/TAB Sig: QUNOL MOUTH ONCE DAILY 33 Total Medications Clinic (IMO) and/or No data available Outside [facility] Documented Medication(s) No Active Remote Medications for this patient /es/ JER GARCIA APN PRIMARY CARE-KERI Signed: 08/28/2020 09:13 [facility] Aug 28, 2020 08:58 AM PRIMARY CARE PHYSICIAN NOTE: LOCAL TITLE: PRIMARY CARE/PROVIDER STANDARD TITLE: PRIMARY CARE PHYSICIAN NOTE DATE OF NOTE: AUG 28, 2020@08:58 ENTRY DATE: AUG 28, 2020@08:59:02 AUTHOR: JER GARCIA EXP COSIGNER: URGENCY: STATUS: COMPLETED Patient contacted for routine follow up visit via telephone due to COVID 19 virus concerns. HPI: Patient presents per telephone visit for routine follow up appointment. Patient reports he is doing ok. States recently diagnosed with Parkinson's disease. Local Physicians: Dr. Devine, Urology Dr. Winn, neurology PERTINANT REVIEW OF SYSTEMS: GENERAL: Appetite good, no significant weight change Head, ears, eyes, nose, throat: No significant change HEART: No chest pain or palpitations LUNGS: No Shortness of breath Denies cough Gastrointestinal: No abdominal pain, bowel movements unchanged Genital/Urinary: No dysuria, hematuria, or change in frequency of urination; states having prostate bx again in November 2020. MUSCULOSKELETAL: Normal ROM, denies myalgia NEURO: States taking carbidopa/levodopa 25mg/100mg TID. Reports this has helped his tremors. SKIN: Denies rash, open wounds or nonhealing sores PSY: States mood as stable; sees MH; denies SI/HI. Reports not taking escitalopram as it did not help his depressiona and caused weight gain. ASSESSMENT/PLAN: 1. Depression - stable per patient's rep ort. 2. Parkinson's disease - continue meds a nd f/u with outside neuro as scheduled 3. Benign prostatic hyperplasia - f/u urology as scheduled 4. Hyperlipidemia (SNOMED CT [id number]) - LDL at goal; continue atorvastatin as ordered. 5. Elevated PSA (SNOMED CT [id number]) - f/u with urology as scheduled 2010 Work up by Urology - BPH The patients medical condition(s), new medication(s), and common side effects, were discussed. The patient expressed understanding and is aware to contact us if any further questions. FOLLOW UP: -RTC 12 months with pre-appt fasting lab s: CBC, renal/liver profile, lipid profile, PSA, TSH, UA. Amount of time spent on phone with patient: 8 minutes /mauri/ JER GARCIA APN PRIMARY CARE-KERI Signed: 08/28/2020 09:10 J[facility] GARCIA [facility]INIC
== END 2021-02-25 16:00 ==
LOC: SDC 10:32
PROVIDERS: ATTEND Radiology Radiation Oncology
DX: C61 Malignant neoplasm of prostate (principal); G47.33 Obstructive sleep apnea (adult) (pediatric); K21.9 Gastro-esophageal reflux disease without esophagitis; G20 Parkinson's disease; N18.9 Chronic kidney disease, unspecified; Z79.899 Other long term (current) drug therapy
CPT/HCPCS: 76000; 76965; 77290; 77318; 77332; 77370; 77470; 77778; 87081

== ENCOUNTER 2021-03-24 09:09 | Outpatient (RCR) | payer OTHER ==
[~2021-03-24 09:09] MED LIST changes: +ACET1TAB43 PO; +CIPR-226 PO
== END 2021-03-29 | disposition home or self-care (01) ==
LOC: ONC 09:09
PROVIDERS: ATTEND Radiology Radiation Oncology
DX: Z51.0 Encounter for antineoplastic radiation therapy (principal); C61 Malignant neoplasm of prostate; Z80.0 Family history of malignant neoplasm of digestive organs; Z87.891 Personal history of nicotine dependence
CPT/HCPCS: 76873; 77290; 99205

== ENCOUNTER → 2021-05-11 | Outpatient (CLI) | payer OTHER | LOC: EDSTATUS 03-30 15:53 → ONC 10:45 | PROVIDERS: ATTEND Radiology Radiation Oncology | DX: C61 Malignant neoplasm of prostate (principal); Z80.0 Family history of malignant neoplasm of digestive organs; Z87.891 Personal history of nicotine dependence | CPT/HCPCS: 77295 ==

== ENCOUNTER → 2021-08-27 | Outpatient (CLI) | payer OTHER | LOC: ONC 10:45 | PROVIDERS: ATTEND Radiology Radiation Oncology | DX: Z80.0 Family history of malignant neoplasm of digestive organs (principal); Z87.891 Personal history of nicotine dependence | CPT/HCPCS: 36415; 84153; 99213 ==